=== PATIENT | female | born 1995 | race American Indian/Alaskan Native ===

== ENCOUNTER 2018-04-30 21:31 | Inpatient (IN) | payer MEDICAID ==
[2018-04-30 21:40] VITALS: BMI 38.9
--- NOTE | 2018-04-30 21:53 | ED PDOC ---
Arrival/HPI - General Historian: Patient - General Chief Complaint: Psychiatric Evaluation Time Seen by Provider: 04/30/18 21:39 - History of Present Illness Narrative History of Present Illness (Text): 04/30/18 21:51 22-year-old female presents today brought in by EMS after refusing to stay in her [facility]. Patient denies any trauma or injury. She denies suicidal or homicidal ideations. Patient states she left her [facility] today because she does not want to stay in the [facility] anymore. Patient states she would prefer to stay in a [place] [facility]. Patient states today she was picked up walking [address] and brought to [facility] for which she had a psychiatric evaluation and was discharged back to the [facility]. Patient states as soon as she got back to the [facility] she went upstairs packed her bags and then went to sit on the steps. Patient states the [facility] called the police and she is back in the emergency room because she refuses to stay in the [facility]. (Margaret Silva) Past Medical History - Provider Review Nursing Documentation Reviewed: Yes - Travel History Have you recently traveled outside [place] w/in the past 3 mons?: No - Tetanus Immunization Tetanus Immunization: Unknown - Cardiac Hx Hypertension: Yes - Pulmonary Hx Asthma: Yes - Endocrine/Metabolic Hx Diabetes Mellitus Type 2: Yes Hx Hypothyroidism: Yes - Psychiatric Hx Psychophysiologic Disorder: Yes Hx Substance Use: No - Surgical History Hx Orthopedic Surgery: Yes Hx Tonsillectomy: Yes - Anesthesia Hx Anesthesia: Yes Family/Social History - Physician Review Nursing Documentation Reviewed: Yes Family/Social History: Unknown Family HX Smoking Status: Unknown If Ever Smoked Hx Alcohol Use: No Hx Substance Use: No Allergies/Home Meds Allergies/Adverse Reactions: Allergies haloperidol [From Haldol] Allergy (Verified 04/12/18 21:37) ANAPHYLAXIS risperidone [From Risperdal] Allergy (Verified 04/12/18 21:37) ANAPHYLAXIS shellfish derived Allergy (Verified 04/12/18 21:38) ANAPHYLAXIS seafood Allergy (Uncoded 04/30/18 21:39) ANAPHYLAXIS Home Medications: Home Meds Medication Instructions Recorded Confirmed Acetaminophen [Tylenol 325mg tab] 650 mg PO PRN PRN 05/02/18 05/02/18 Atomoxetine HCl 25 mg PO DAILY 05/02/18 05/02/18 Azelastine HCl [Azelastine 1 drop OP BID 05/02/18 05/02/18 Hydrochloride 6 ml] Bisacodyl [Ducolax] 10 mg PO HS 05/02/18 05/02/18 Cabergoline 0.75 mg PO TUE 05/02/18 05/03/18 Daily Vitamin Mvi 1 tab PO DAILY 05/02/18 05/02/18 Docusate [Colace] 100 mg PO TID 05/02/18 05/02/18 Escitalopram [Lexapro] 20 mg PO DAILY 05/02/18 05/02/18 Famotidine [Pepcid] 40 mg PO DAILY 05/02/18 05/02/18 Fluticasone Propionate [Flonase] 50 mcg DAILY 05/02/18 05/02/18 Gabapentin [Neurontin] 300 mg PO TID 05/02/18 05/02/18 Hydroxyzine Pamoate 50 mg PO QID 05/02/18 05/02/18 [place] Carbonate 300 mg PO TID 05/02/18 05/02/18 Norethindrone AC-Eth Estradiol 1 tab PO DAILY 05/02/18 05/02/18 [Ethinyl Estradiol-Norethindrone Acetate 20 Mc] Pantoprazole [Protonix] 40 mg PO HS 05/02/18 05/02/18 Prazosin HCL [Minipress] 2 mg PO HS 05/02/18 05/02/18 Sennosides [Senna] 17.2 mg PO HS 05/02/18 05/02/18 Thiamine [Vitamin B1] 100 mg PO DAILY 05/02/18 05/02/18 busPIRone [Buspar] 5 mg PO TID 05/02/18 05/02/18 metFORMIN [glucOPHAGE] 500 mg PO BID 05/02/18 05/02/18 traZODone [trazodone Hydrochloride] 100 mg PO PRN 05/02/18 05/02/18 Cabergoline [Cabergoline] 0.75 mg PO FRI 05/03/18 05/03/18 Review of Systems - Review of Systems Constitutional: absent: Fatigue, Fevers Respiratory: absent: SOB, Cough Cardiovascular: absent: Chest Pain, Palpitations Gastrointestinal: absent: Abdominal Pain, Nausea, Vomiting Genitourinary Female: absent: Dysuria Musculoskeletal: absent: Arthralgias, Back Pain, Neck Pain Skin: absent: Rash, Pruritis Neurological: absent: Headache, Dizziness Psychiatric: absent: Anxiety, Depression, Suicidal Ideation Physical Exam Vital Signs Reviewed: Yes Temperature: Afebrile Blood Pressure: Normal Pulse: Regular Respiratory Rate: Normal Appearance: Positive for: Well-Appearing, Non-Toxic, Comfortable Pain Distress: None Mental Status: Positive for: Alert and Oriented X 3 - Systems Exam Head: Present: Atraumatic Mouth: Present: Moist Mucous Membranes Respiratory/Chest: Present: Clear to Auscultation Cardiovascular: Present: Regular Rate and Rhythm Abdomen: No: Tenderness, Rebound, Guarding Upper Extremity: Present: Normal ROM Lower Extremity: Present: Normal ROM Neurological: Present: GCS=15, Speech Normal Skin: Present: Warm, Dry, Normal Color. No: Rashes Psychiatric: Present: Alert, Oriented x 3 Vital Signs Temp Pulse Resp BP Pulse Ox 05/02/18 11:40 97.3 F L 73 18 108/69 99 05/02/18 10:15 88 18 110/69 99 05/02/18 08:01 97.1 F L 64 16 93/61 L 98 05/02/18 05:00 74 16 110/68 97 05/02/18 01:00 77 16 118/70 97 05/01/18 21:00 84 16 115/68 98 05/01/18 19:15 98.4 F 66 17 102/67 97 05/01/18 16:11 80 16 136/82 99 05/01/18 14:11 83 16 122/86 99 05/01/18 12:10 88 16 99 05/01/18 10:09 88 16 120/82 99 05/01/18 08:08 88 16 120/78 99 05/01/18 05:14 98.1 F 90 18 117/80 98 05/01/18 00:30 98.5 F 71 18 112/78 98 04/30/18 22:43 97.4 F L 74 18 115/82 98 Medical Decision Making ED Course and Treatment: 05/01/18 01:49: Case endorsed to me by MEHRAN Silva. Pending face-to- face with Dr. Gallo and disposition. (Claudy Simmons) 04/30/18 21:53 Patient is nontoxic well-appearing in no distress vital signs are stable. CBC Wbc: 13.9 CMP WNL Tylenol WNL Salicylate WNL Alcohol level WNL Urine drug screen wnl UA; wnl ekg normal sinus rhythm at 71 bpm normal axis normal intervals no ST elevations pt is medically cleared for PES evaluation Patient was seen and evaluated by PES screener: Michel pt is to be held in the ER for a Face to face with the psychiatrist Dr. Melvin in the morning. case signed out to dr. simmons pending evaluation by psychiatrist in the morning and disposition. (Margaret Silva) - Lab Interpretations Microbiology Results: Microbiology Results 04/30/18 22:57 Urine,Clean Catch Urine Culture - Final Gram Negative Julian Lab Results: 04/30/18 22:57 04/30/18 22:57 Lab Results 05/02/18 08:02: POC Glucose (mg/dL) 95 05/01/18 09:13: POC Glucose (mg/dL) 106 05/01/18 00:25: POC Glucose (mg/dL) 82 04/30/18 22:57: Alcohol, Quantitative < 10 04/30/18 22:57: Salicylates < 1 L, Acetaminophen < 10.0 L 04/30/18 22:57: Sodium 142, Potassium 3.9, Chloride 106, Carbon Dioxide 24, Anion Gap 16, BUN 7, Creatinine 0.6 L, Est GFR ( Amer) > 60, Est GFR (Non -Af Amer) > 60, Random Glucose 90, Calcium 9.9, Total Bilirubin 0.2, AST 35, ALT 39, Alkaline Phosphatase 60, Total Protein 7.6, Albumin 4.4, Globulin 3.2, Albumin/Globulin Ratio 1.4 04/30/18 22:57: WBC 13.9 H, RBC 4.62, Hgb 12.0, Hct 36.6, MCV 79.2 L, MCH 26.0, MCHC 32.8, RDW 13.8, Plt Count 462 H, MPV 9.4, Gran % 69.5 H, Lymph % (Auto) 23.7, [place] % (Auto) 5.4, Eos % (Auto) 1.3 L, Baso % (Auto) 0.1, Gran # 9.68 H, Lymph # (Auto) 3.3, [place] # (Auto) 0.8 H, Eos # (Auto) 0.2, Baso # (Auto) 0.02 04/30/18 22:44: Urine Opiates Screen Negative, Urine Methadone Screen Negative, Ur Barbiturates Screen Negative, Ur Phencyclidine Scrn Negative, Ur Amphetamines Screen Negative, U Benzodiazepines Scrn Negative, U Oth Cocaine Metabols Negative, U Cannabinoids Screen Negative 04/30/18 22:44: Urine Color Yellow, Urine Appearance Clear, Urine pH 6.0, Ur Specific [place] 1.020, Urine Protein Negative, Urine Glucose (UA) Negative, Urine Ketones Negative, Urine Blood Negative, Urine Nitrate Negative, Urine Bilirubin Negative, Urine Urobilinogen 0.2, Ur Leukocyte Esterase Trace H, Urine RBC Negative, Urine WBC 0 - 2, Ur Epithelial Cells 0 - 2, Urine Bacteria None - RAD Interpretation Radiology Orders: 05/01/18 14:10 CHEST ONE VIEW [RAD] Stat - Medication Orders Current Medication Orders: Albuterol Sulfate (Albuterol 0.083% Inhal Irene (2.5 Mg/3 Ml) Ud) 2.5 mg INH Q6 PRN PRN Reason: Wheezing Buspirone HCl (Buspar) 5 mg PO TID [facility] PRN Reason: Protocol Last Admin: 05/03/18 17:19 Dose: 5 mg Behavioural Document 05/03/18 17:19 RFE (Rec: 05/03/18 17:19 RFE [id number]) Maintenance Maintenance Dose Yes Nonmedicinal Nonmedicinal Interventions Redirect Therapeutic Communication Behavior Behavior for Medication: Anxiety Re-Assess: Reassess Psych Meds Document 05/03/18 18:19 ABO (Rec: 05/03/18 18:59 ABO [id number]) Reassess Psych Med Effective Calcium Carbonate (Oscal) 500 mg PO BID PRN PRN Reason: Indigestion / Heartburn Chlorpromazine (Thorazine) 50 mg IM Q6H PRN; Protocol PRN Reason: agitation and aggression Last Admin: 05/01/18 16:47 Dose: 50 mg IM Administration Charges Document 05/01/18 16:47 MS (Rec: 05/01/18 16:47 MS [id number]) Injection Site MAR Injection Site Left Deltoid Charges for Administration # of IM Administrations 1 Chlorpromazine (Thorazine) 50 mg PO BID [facility] PRN Reason: Protocol Last Admin: 05/03/18 17:19 Dose: 50 mg Behavioural Document 05/03/18 17:19 RFE (Rec: 05/03/18 17:19 RFE [id number]) Maintenance Maintenance Dose Yes Re-Assess: Reassess Psych Meds Document 05/03/18 18:19 ABO (Rec: 05/03/18 19:16 ABO [id number]) Reassess Psych Med Effective Chlorpromazine (Thorazine) 50 mg PO HS [facility] PRN Reason: Protocol Diphenhydramine HCl (Benadryl) 50 mg IM Q6H PRN PRN Reason: agitation/aggression Fluoxetine HCl (Prozac) 20 mg PO DAILY [facility] Last Admin: 05/03/18 13:09 Dose: 20 mg Fluticasone Propionate (Flonase) 1 actuation NS DAILY [facility] Last Admin: 05/03/18 08:54 Dose: 1 spray Gabapentin (Neurontin) 300 mg PO TID [facility] PRN Reason: Protocol Last Admin: 05/03/18 17:19 Dose: 300 mg Behavioural Document 05/03/18 17:19 RFE (Rec: 05/03/18 17:19 RFE [id number]) Maintenance Maintenance Dose Yes Re-Assess: Reassess Psych Meds Document 05/03/18 18:19 ABO (Rec: 05/03/18 19:00 ABO [id number]) Reassess Psych Med Effective Hydroxyzine Pamoate (Vistaril) 50 mg PO QID PRN; Protocol PRN Reason: Anxiety Last Admin: 05/02/18 17:08 Dose: 50 mg Behavioural Document 05/02/18 17:08 ABO (Rec: 05/02/18 17:08 ABO [id number]) Maintenance Maintenance Dose No Nonmedicinal Nonmedicinal Interventions See nurse's notes Behavior Behavior for Medication: Anxiety Re-Assess: Reassess Psych Meds Document 05/02/18 18:08 CV (Rec: 05/02/18 18:56 CV [id number]) Reassess Psych Med Effective [place] Carbonate ([place] Carbonate 300mg) 300 mg PO TID [facility] Last Admin: 05/03/18 17:19 Dose: 300 mg Behavioural Document 05/03/18 17:19 RFE (Rec: 05/03/18 17:19 RFE [id number]) Maintenance Maintenance Dose Yes Re-Assess: Reassess Psych Meds Document 05/03/18 18:19 ABO (Rec: 05/03/18 19:04 ABO [id number]) Reassess Psych Med Effective Loratadine (Claritin) 10 mg PO DAILY PRN PRN Reason: Allergy symptoms Metformin HCl (Glucophage) 500 mg PO BID [facility] Last Admin: 05/03/18 17:19 Dose: 500 mg Multivitamins (Thera Tab) 1 tab PO DAILY [facility] Last Admin: 05/03/18 08:53 Dose: 1 tab Naltrexone HCl (Revia) 50 mg PO DAILY [facility] Last Admin: 05/03/18 13:09 Dose: 50 mg Nicotine (Nicoderm Cq) 1 patch TD DAILY [facility] Nitrofurantoin Macrocrystals (Macrobid) 100 mg PO Q12 [facility] PRN Reason: Protocol Last Admin: 05/03/18 17:19 Dose: 100 mg Non-Formulary Medication (Cabergoline [Cabergoline]) 0.75 mg PO TUE [place] Cabergoline [ Cabergoline] 0.75 Mg ) 0.75 mg PO FRI [facility] Pantoprazole Sodium (Protonix Ec Tab) 40 mg PO HS [facility] Last Admin: 05/02/18 22:01 Dose: Not Given Non-Admin Reason: Patient Asleep Thiamine HCl (Vitamin B1 Tab) 100 mg PO DAILY [facility] Last Admin: 05/03/18 08:53 Dose: 100 mg Trazodone HCl (Desyrel) 50 mg PO HS PRN PRN Reason: depression/insomnia Discontinued Medications Bisacodyl (Dulcolax) 10 mg PO HS [facility] Last Admin: 05/02/18 22:01 Dose: Not Given Non-Admin Reason: Patient Asleep Buspirone HCl (Buspar) 5 mg PO DAILY [facility] PRN Reason: Protocol Chlorpromazine (Thorazine) 50 mg PO QID PRN; Protocol PRN Reason: agitation/psychosis Last Admin: 05/02/18 18:20 Dose: 50 mg Behavioural Document 05/02/18 18:20 ABO (Rec: 05/02/18 18:21 ABO [id number]) Maintenance Maintenance Dose No Nonmedicinal Nonmedicinal Interventions See nurse's notes Behavior Behavior for Medication: Anxiety Re-Assess: Reassess Psych Meds Document 05/02/18 19:20 CV (Rec: 05/02/18 19:37 CV [id number]) Reassess Psych Med Effective Escitalopram Oxalate (Lexapro) 20 mg PO DAILY [facility] Last Admin: 05/03/18 08:53 Dose: 20 mg Famotidine (Pepcid) 20 mg PO STAT STA Stop: 05/02/18 08:53 Last Admin: 05/02/18 10:01 Dose: 20 mg Ondansetron HCl (Zofran Tab) 4 mg PO STAT STA Stop: 05/03/18 19:35 Last Admin: 05/03/18 19:45 Dose: 4 mg Pantoprazole Sodium (Protonix Ec Tab) 40 mg PO DAILY [facility] Sennosides (Senokot Tab) 17.2 mg PO HS [facility] Last Admin: 05/02/18 22:01 Dose: Not Given Non-Admin Reason: Patient Asleep Trazodone HCl (Desyrel) 50 mg PO HS [facility] Disposition/Present on Arrival - Present on Arrival Any Indicators Present on Arrival: No History of DVT/PE: No History of Uncontrolled Diabetes: No Urinary Catheter: No History of Decub. Ulcer: No History Surgical Site Infection Following: None - Disposition Have Diagnosis and Disposition been Completed?: Yes Disposition Time: 11:20 - Disposition Diagnosis: Schizophrenia Disposition: HOSPITALIZED Patient Problems: Current Active Problems Problem Status Onset Borderline personality disorder Acute PTSD (post-traumatic stress disorder) Acute Schizophrenia Acute Condition: STABLE
[2018-04-30 22:50] LABS: URINE APPEARANCE CLEAR (CLEAR); URINE BILIRUBIN NEGATIVE (NEGATIVE); URINE BLOOD NEGATIVE (NEGATIVE); URINE COLOR YELLOW (YELLOW); URINE GLUCOSE (UA) NEGATIVE (NEGATIVE); URINE LEUKOCYTE ESTERASE TRACE Leu/uL (NEGATIVE); URINE PROTEIN NEGATIVE mg/dL (<30 mg/dL); URINE UROBILINOGEN 0.2 E.U./dL (<1 E.U./dL)
[2018-04-30 22:53] LABS: URINE EPITHELIAL CELLS 0 - 2 /hpf (0-5); URINE RBC NEGATIVE /hpf (0-2); URINE WBC 0 - 2 /hpf (0-6)
[2018-04-30 23:02] LABS: BASO # 0.02 K/mm3 (0.0-2.0); BASO % 0.1 % (0.0-3.0); EOS # 0.2 (0.0-0.7); EOS % 1.3 % (1.5-5.0); GRAN # 9.68 (1.4-6.5); GRAN % 69.5 % (50.0-68.0); LYMPH # 3.3 (1.2-3.4); LYMPH % 23.7 % (22.0-35.0); MEAN CELL VOLUME 79.2 fl (80.0-105.0); MEAN CORPUSCULAR HGB CONC 32.8 g/dl (31.0-37.0); MEAN PLATELET VOLUME 9.4 fl (7.0-11.0); MONO # 0.8 (0.1-0.6); MONO % 5.4 % (1.0-6.0); RBC 4.62 10^6/uL (3.5-6.1); RED CELL DISTRIBUTION WIDTH 13.8 % (11.5-14.5); WHITE BLOOD COUNT 13.9 10^3/ul (4.5-11.0)
[2018-04-30 23:12] LABS: ALB/GLOB RATIO 1.4 (1.1-1.8)
[2018-04-30 23:13] LABS: ACETAMINOPHEN < 10.0 ug/ml (10.0-20.0); SALICYLATE < 1 mg/dL (2.0-20.0)
[2018-04-30 23:14] LABS: ALBUMIN 4.4 g/dL (3.0-4.8); ALT/SGPT 39 U/L (7-56); AST/SGOT 35 U/L (14-36); BLOOD UREA NITROGEN 7 mg/dL (7-21); CALCIUM 9.9 mg/dL (8.4-10.5); GFR AFRICAN-AMERICAN > 60; GFR NON-AFRICAN AMERICAN > 60
[2018-04-30 23:14] LABS: BARBITURATES, UR NEGATIVE (NEGATIVE); BENZODIAZEPINES, UR NEGATIVE (NEGATIVE); OPIATES, UR NEGATIVE (NEGATIVE); PHENCYCLIDINE, UR NEGATIVE (NEGATIVE)
--- NOTE | 2018-05-01 07:45 | ED PDOC ---
Physical Exam Vital Signs Reviewed: Yes Vital Signs Temp Pulse Resp BP Pulse Ox 05/01/18 05:14 98.1 F 90 18 117/80 98 05/01/18 00:30 98.5 F 71 18 112/78 98 04/30/18 22:43 97.4 F L 74 18 115/82 98 Temperature: Afebrile Blood Pressure: Normal Pulse: Regular Respiratory Rate: Normal Appearance: Positive for: Well-Appearing, Non-Toxic, Comfortable Pain Distress: None Mental Status: Positive for: Alert and Oriented X 3 - Systems Exam Head: Present: Atraumatic, Normocephalic Pupils: Present: PERRL Extroacular Muscles: Present: EOMI Conjunctiva: Present: Normal Mouth: Present: Moist Mucous Membranes Neck: Present: Normal Range of Motion Respiratory/Chest: Present: Clear to Auscultation, Good Air Exchange. No: Respiratory Distress, Accessory Muscle Use Cardiovascular: Present: Regular Rate and Rhythm, Normal S1, S2. No: Murmurs Abdomen: No: Tenderness, Distention, Peritoneal Signs Back: Present: Normal Inspection Upper Extremity: Present: Normal Inspection. No: Cyanosis, Edema Lower Extremity: Present: Normal Inspection. No: Edema Neurological: Present: GCS=15, CN II-XII Intact, Speech Normal Skin: Present: Warm, Dry, Normal Color. No: Rashes Psychiatric: Present: Alert, Oriented x 3, Normal Insight, Normal Concentration Medical Decision Making ED Course and Treatment: 05/01/18 07:42 Case signed out to me by Dr. Nelson, pending psychiatric evaluation and disposition. 05/01/18 11:[address] melvin, patient can be discharged but senior living must pick patient up. Patient does not appear to be a acute threat to herself or others and does not require hospitalization at this time. 05/01/18 14:38 patient is medically stable for psych eval, admit, transfer if needed 05/01/18 15:10 Chest X-ray: Creator : Cassidy Suarez MD IMPRESSION: No active pulmonary disease. 05/01/18 18:30 up to this point several chain of events have occurred. Patient was initially discharged to go home via Dr. Melvin. Patient then went to say she will kill herself if she has to go back to her senior living. PED was contacted to have patient screened for psych placement but was then refused for admission to [facility]. At this point, am awaiting potential placement at [facility]. - Lab Interpretations Lab Results: 04/30/18 22:57 04/30/18 22:57 Lab Results 04/30/18 22:57: Alcohol, Quantitative < 10 04/30/18 22:57: Salicylates < 1 L, Acetaminophen < 10.0 L 04/30/18 22:57: Sodium 142, Potassium 3.9, Chloride 106, Carbon Dioxide 24, Anion Gap 16, BUN 7, Creatinine 0.6 L, Est GFR ( Amer) > 60, Est GFR (Non -Af Amer) > 60, Random Glucose 90, Calcium 9.9, Total Bilirubin 0.2, AST 35, ALT 39, Alkaline Phosphatase 60, Total Protein 7.6, Albumin 4.4, Globulin 3.2, Albumin/Globulin Ratio 1.4 04/30/18 22:57: WBC 13.9 H, RBC 4.62, Hgb 12.0, Hct 36.6, MCV 79.2 L, MCH 26.0, MCHC 32.8, RDW 13.8, Plt Count 462 H, MPV 9.4, Gran % 69.5 H, Lymph % (Auto) 23.7, [place] % (Auto) 5.4, Eos % (Auto) 1.3 L, Baso % (Auto) 0.1, Gran # 9.68 H, Lymph # (Auto) 3.3, [place] # (Auto) 0.8 H, Eos # (Auto) 0.2, Baso # (Auto) 0.02 04/30/18 22:44: Urine Opiates Screen Negative, Urine Methadone Screen Negative, Ur Barbiturates Screen Negative, Ur Phencyclidine Scrn Negative, Ur Amphetamines Screen Negative, U Benzodiazepines Scrn Negative, U Oth Cocaine Metabols Negative, U Cannabinoids Screen Negative 04/30/18 22:44: Urine Color Yellow, Urine Appearance Clear, Urine pH 6.0, Ur Specific [place] 1.020, Urine Protein Negative, Urine Glucose (UA) Negative, Urine Ketones Negative, Urine Blood Negative, Urine Nitrate Negative, Urine Bilirubin Negative, Urine Urobilinogen 0.2, Ur Leukocyte Esterase Trace H, Urine RBC Negative, Urine WBC 0 - 2, Ur Epithelial Cells 0 - 2, Urine Bacteria None - RAD Interpretation Radiology Orders: 05/01/18 14:10 CHEST ONE VIEW [RAD] Stat - Medication Orders Current Medication Orders: Chlorpromazine (Thorazine) 50 mg IM Q6H PRN; Protocol PRN Reason: agitation and aggression Diphenhydramine HCl (Benadryl) 50 mg IM Q6H PRN PRN Reason: agitation/aggression - Scribe Statement The provider has reviewed the documentation as recorded by the Scribjeramy Miranda All medical record entries made by the Scribe were at my direction and personally dictated by me. I have reviewed the chart and agree that the record accurately reflects my personal performance of the history, physical exam, medical decision making, and the department course for this patient. I have also personally directed, reviewed, and agree with the discharge instructions and disposition. Disposition/Present on Arrival - Present on Arrival Any Indicators Present on Arrival: No History of DVT/PE: No History of Uncontrolled Diabetes: No Urinary Catheter: No History of Decub. Ulcer: No History Surgical Site Infection Following: None - Disposition Have Diagnosis and Disposition been Completed?: Yes Diagnosis: Mood disorder, Borderline personality disorder Disposition: HOME/ ROUTINE Disposition Time: 12:02 Patient Plan: Discharge Patient Problems: Current Active Problems Problem Status Onset Borderline personality disorder Acute Mood disorder Acute Condition: STABLE Discharge Instructions (ExitCare): Tips for How to Help Your Mood Print Language: GUYANESE Referrals: Ibeth Singh MD [Primary Care Provider] - Follow up with primary Forms: [employer] (Austrian)
--- NOTE | 2018-05-01 12:15 | CARD ---
APPROVED REPORT Date of service: 04/30/2018 EKG Measurement Heart [id number] <Conclusion> Normal sinus rhythm Normal ECG
[2018-05-01] MEDS ORDERED: DiphenhydrAMINE 50 mg/ml Inj IM PRN (13:43)
--- NOTE | 2018-05-01 14:31 | CP.PCM.PCO ---
Addendum Addendum: 05/01/18 14:30 as per PES reassessment pt presented agitated, responding to internal stimuli, command type hallucinations will call for screening discussed with today [facility]
--- NOTE | 2018-05-01 14:44 | RAD ---
Date of service: 05/01/2018 PROCEDURE: CHEST RADIOGRAPH, 1 VIEW HISTORY: medical screening COMPARISON: None available. FINDINGS: LUNGS: The lungs are well inflated and clear. PLEURA: No pneumothorax or pleural fluid seen. CARDIOVASCULAR: Normal. OSSEOUS STRUCTURES: No significant abnormalities. VISUALIZED UPPER ABDOMEN: Normal. OTHER FINDINGS: None. IMPRESSION: No active pulmonary disease.
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
--- NOTE | 2018-05-01 23:05 | ED PDOC ---
Physical Exam Vital Signs Temp Pulse Resp BP Pulse Ox 05/01/18 19:15 98.4 F 66 17 102/67 97 05/01/18 16:11 80 16 136/82 99 05/01/18 14:11 83 16 122/86 99 05/01/18 12:10 88 16 99 05/01/18 10:09 88 16 120/82 99 05/01/18 08:08 88 16 120/78 99 05/01/18 05:14 98.1 F 90 18 117/80 98 05/01/18 00:30 98.5 F 71 18 112/78 98 04/30/18 22:43 97.4 F L 74 18 115/82 98 Medical Decision Making ED Course and Treatment: 05/01/18 19:00 Case endorsed to me by Dr. Morrison, pending possible psych transfer to [facility]. - Lab Interpretations Lab Results: 04/30/18 22:57 04/30/18 22:57 Lab Results 04/30/18 22:57: Alcohol, Quantitative < 10 04/30/18 22:57: Salicylates < 1 L, Acetaminophen < 10.0 L 04/30/18 22:57: Sodium 142, Potassium 3.9, Chloride 106, Carbon Dioxide 24, Anion Gap 16, BUN 7, Creatinine 0.6 L, Est GFR ( Amer) > 60, Est GFR (Non -Af Amer) > 60, Random Glucose 90, Calcium 9.9, Total Bilirubin 0.2, AST 35, ALT 39, Alkaline Phosphatase 60, Total Protein 7.6, Albumin 4.4, Globulin 3.2, Albumin/Globulin Ratio 1.4 04/30/18 22:57: WBC 13.9 H, RBC 4.62, Hgb 12.0, Hct 36.6, MCV 79.2 L, MCH 26.0, MCHC 32.8, RDW 13.8, Plt Count 462 H, MPV 9.4, Gran % 69.5 H, Lymph % (Auto) 23.7, Brule % (Auto) 5.4, Eos % (Auto) 1.3 L, Baso % (Auto) 0.1, Gran # 9.68 H, Lymph # (Auto) 3.3, Brule # (Auto) 0.8 H, Eos # (Auto) 0.2, Baso # (Auto) 0.02 07/17/18 22:44: Urine Opiates Screen Negative, Urine Methadone Screen Negative, Ur Barbiturates Screen Negative, Ur Phencyclidine Scrn Negative, Ur Amphetamines Screen Negative, U Benzodiazepines Scrn Negative, U Oth Cocaine Metabols Negative, U Cannabinoids Screen Negative 04/30/18 22:44: Urine Color Yellow, Urine Appearance Clear, Urine pH 6.0, Ur Specific Wallace 1.020, Urine Protein Negative, Urine Glucose (UA) Negative, Urine Ketones Negative, Urine Blood Negative, Urine Nitrate Negative, Urine Bilirubin Negative, Urine Urobilinogen 0.2, Ur Leukocyte Esterase Trace H, Urine RBC Negative, Urine WBC 0 - 2, Ur Epithelial Cells 0 - 2, Urine Bacteria None - RAD Interpretation Radiology Orders: 05/01/18 14:10 CHEST ONE VIEW [RAD] Stat - Medication Orders Current Medication Orders: Chlorpromazine (Thorazine) 50 mg IM Q6H PRN; Protocol PRN Reason: agitation and aggression Last Admin: 05/01/18 16:47 Dose: 50 mg IM Administration Charges Document 05/01/18 16:47 MS (Rec: 05/01/18 16:47 MS [id number]) Injection Site MAR Injection Site Left Deltoid Charges for Administration # of IM Administrations 1 Diphenhydramine HCl (Benadryl) 50 mg IM Q6H PRN PRN Reason: agitation/aggression - Transfer of Care Patient signed out to Dr:: bebeto awaiting transfer Disposition/Present on Arrival - Present on Arrival Any Indicators Present on Arrival: No History of DVT/PE: No History of Uncontrolled Diabetes: No Urinary Catheter: No History of Decub. Ulcer: No History Surgical Site Infection Following: None - Disposition Have Diagnosis and Disposition been Completed?: Yes Diagnosis: Schizophrenia Disposition: HOSPITALIZED Disposition Time: 07:00 Condition: STABLE
[2018-05-02] MEDS ORDERED: Albuterol 0.083% Inhal Sol (2.5 mg/3 mL) UD INH PRN (09:13)
[2018-05-02] MEDS ORDERED: Pantoprazole 40 mg EC Tab PO SCH (10:00)
[2018-05-02] MEDS: Multivitamin Therapeutic Tab PO SCH (10:02)
--- NOTE | 2018-05-02 11:22 | CP.PCM.PCO ---
Physician Communication Note - Physician Communication Note Physician Communication Note: pt was [place] [facility] program, signed voluntary admission
[2018-05-02] MEDS: Fluticasone Nasal 50 mcg/Spray NS SCH ×2 (11:24→11:27)
--- NOTE | 2018-05-02 11:26 | ED PDOC ---
Physical Exam Vital Signs Temp Pulse Resp BP Pulse Ox 05/02/18 08:01 97.1 F L 64 16 93/61 L 98 05/02/18 05:00 74 16 110/68 97 05/02/18 01:00 77 16 118/70 97 05/01/18 21:00 84 16 115/68 98 05/01/18 19:15 98.4 F 66 17 102/67 97 05/01/18 16:11 80 16 136/82 99 05/01/18 14:11 83 16 122/86 99 05/01/18 12:10 88 16 99 05/01/18 10:09 88 16 120/82 99 05/01/18 08:08 88 16 120/78 99 05/01/18 05:14 98.1 F 90 18 117/80 98 05/01/18 00:30 98.5 F 71 18 112/78 98 04/30/18 22:43 97.4 F L 74 18 115/82 98 Finger Stick Blood Glucose: 95 Medical Decision Making ED Course and Treatment: Signed out at change of shift pending [employer] screening. Screening performed around 11am, not accepted as "too high functioning." Patient then voluntarily signed in. - Lab Interpretations Microbiology Results: Microbiology Results 04/30/18 22:57 Urine,Clean Catch Urine Culture - Final Gram Negative Julian Lab Results: 04/30/18 22:57 04/30/18 22:57 Lab Results 05/01/18 09:13: POC Glucose (mg/dL) 106 05/01/18 00:25: POC Glucose (mg/dL) 82 04/30/18 22:57: Alcohol, Quantitative < 10 04/30/18 22:57: Salicylates < 1 L, Acetaminophen < 10.0 L 04/30/18 22:57: Sodium 142, Potassium 3.9, Chloride 106, Carbon Dioxide 24, Anion Gap 16, BUN 7, Creatinine 0.6 L, Est GFR ( Amer) > 60, Est GFR (Non -Af Amer) > 60, Random Glucose 90, Calcium 9.9, Total Bilirubin 0.2, AST 35, ALT 39, Alkaline Phosphatase 60, Total Protein 7.6, Albumin 4.4, Globulin 3.2, Albumin/Globulin Ratio 1.4 04/30/18 22:57: WBC 13.9 H, RBC 4.62, Hgb 12.0, Hct 36.6, MCV 79.2 L, MCH 26.0, MCHC 32.8, RDW 13.8, Plt Count 462 H, MPV 9.4, Gran % 69.5 H, Lymph % (Auto) 23.7, [place] % (Auto) 5.4, Eos % (Auto) 1.3 L, Baso % (Auto) 0.1, Gran # 9.68 H, Lymph # (Auto) 3.3, [place] # (Auto) 0.8 H, Eos # (Auto) 0.2, Baso # (Auto) 0.02 04/30/18 22:44: Urine Opiates Screen Negative, Urine Methadone Screen Negative, Ur Barbiturates Screen Negative, Ur Phencyclidine Scrn Negative, Ur Amphetamines Screen Negative, U Benzodiazepines Scrn Negative, U Oth Cocaine Metabols Negative, U Cannabinoids Screen Negative 04/30/18 22:44: Urine Color Yellow, Urine Appearance Clear, Urine pH 6.0, Ur Specific Mcbain 1.020, Urine Protein Negative, Urine Glucose (UA) Negative, Urine Ketones Negative, Urine Blood Negative, Urine Nitrate Negative, Urine Bilirubin Negative, Urine Urobilinogen 0.2, Ur Leukocyte Esterase Trace H, Urine RBC Negative, Urine WBC 0 - 2, Ur Epithelial Cells 0 - 2, Urine Bacteria None - RAD Interpretation Radiology Orders: 05/01/18 14:10 CHEST ONE VIEW [RAD] Stat - Medication Orders Current Medication Orders: Albuterol Sulfate (Albuterol 0.083% Inhal Irene (2.5 Mg/3 Ml) Ud) 2.5 mg INH Q6 PRN PRN Reason: Wheezing Bisacodyl (Dulcolax) 10 mg PO HS SIDNEY Buspirone HCl (Buspar) 5 mg PO TID SIDNEY PRN Reason: Protocol Last Admin: 05/02/18 10:02 Dose: 5 mg Calcium Carbonate (Oscal) 500 mg PO BID PRN PRN Reason: Indigestion / Heartburn Chlorpromazine (Thorazine) 50 mg IM Q6H PRN; Protocol PRN Reason: agitation and aggression Last Admin: 05/01/18 16:47 Dose: 50 mg IM Administration Charges Document 05/01/18 16:47 MS (Rec: 05/01/18 16:47 MS [id number]) Injection Site MAR Injection Site Left Deltoid Charges for Administration # of IM Administrations 1 Diphenhydramine HCl (Benadryl) 50 mg IM Q6H PRN PRN Reason: agitation/aggression Escitalopram Oxalate (Lexapro) 20 mg PO DAILY [facility] Last Admin: 05/02/18 10:12 Dose: Not Given Non-Admin Reason: Patient Refused Fluticasone Propionate (Flonase) 1 actuation NS DAILY [facility] Gabapentin (Neurontin) 300 mg PO TID SIDNEY PRN Reason: Protocol Last Admin: 05/02/18 10:01 Dose: 300 mg Hydroxyzine Pamoate (Vistaril) 50 mg PO QID PRN; Protocol PRN Reason: Anxiety Altura Carbonate (Altura Carbonate 300mg) 300 mg PO TID [facility] Last Admin: 05/02/18 09:59 Dose: 300 mg Loratadine (Claritin) 10 mg PO DAILY PRN PRN Reason: Allergy symptoms Metformin HCl (Glucophage) 500 mg PO BID [facility] Last Admin: 05/02/18 10:00 Dose: 500 mg Multivitamins (Thera Tab) 1 tab PO DAILY [facility] Last Admin: 05/02/18 10:02 Dose: 1 tab Nitrofurantoin Macrocrystals (Macrobid) 100 mg PO Q12 [facility] PRN Reason: Protocol Last Admin: 05/02/18 10:00 Dose: 100 mg Pantoprazole Sodium (Protonix Ec Tab) 40 mg PO HS [facility] Sennosides (Senokot Tab) 17.2 mg PO HS [facility] Thiamine HCl (Vitamin B1 Tab) 100 mg PO DAILY [facility] Last Admin: 05/02/18 10:01 Dose: 100 mg Trazodone HCl (Desyrel) 50 mg PO HS PRN PRN Reason: depression/insomnia Discontinued Medications Buspirone HCl (Buspar) 5 mg PO DAILY [facility] PRN Reason: Protocol Famotidine (Pepcid) 20 mg PO STAT STA Stop: 05/02/18 08:53 Last Admin: 05/02/18 10:01 Dose: 20 mg Pantoprazole Sodium (Protonix Ec Tab) 40 mg PO DAILY [facility] Trazodone HCl (Desyrel) 50 mg PO HS [facility] Disposition/Present on Arrival - Present on Arrival Any Indicators Present on Arrival: No History of DVT/PE: No History of Uncontrolled Diabetes: No Urinary Catheter: No History of Decub. Ulcer: No History Surgical Site Infection Following: None - Disposition Have Diagnosis and Disposition been Completed?: Yes Diagnosis: Schizophrenia Disposition: HOSPITALIZED Disposition Time: 11:25 Patient Plan: Admission Patient Problems: Current Active Problems Problem Status Onset Borderline personality disorder Acute Mood disorder Acute Condition: STABLE Print Language: TAJIK
[2018-05-02 11:41] VITALS: O2SAT 99
--- NOTE | 2018-05-02 13:14 | PN ---
DATE: 05/02/2018 SUBJECTIVE: Patient was followed up in the Emergency Room today. Patient was screened by [facility], was not accepted for screening. Overnight, patient did not have any behavioral disturbances, did not require any medication for agitation or aggression. Last IM was given to her yesterday at 04:47, Thorazine 50 mg IM. Patient was seen today at the morning time, presented to be calm, superficially cooperative. Patient still has prior thoughts of harming herself. Patient said that she feels depressed, hopeless, and helpless. Majority of the stress is related to the living situation. Patient states that she does not like her fci. Patient wants to be more independent. At the same time, this development writer is not sure how realistic the plan is. This development writer suggested [facility] DDD Program evaluation and they will come and talk to the patient in the Emergency Room after 09:00 p.m. We will follow up on evaluation. If patient will be not accepted to [facility], this development writer will offer admission and I hope that patient will sign herself into the hospital. Medication list was confirmed by fci and we will resume all of the medications with appropriate doses. Please see addendum entered by consultants intern. This development writer feels that the patient needs to have higher level of care and appropriate treatment at the DDD unit. Reviewed vital signs. Vital signs seem to be stable. Temperature 97.1, pulse 64, blood pressure 93/61, respirations 16, oxygen saturation 98. MEDICATIONS: Reviewed. Patient is on albuterol, Dulcolax, BusPar, Os-Otf, Thorazine will be as needed, Benadryl, Lexapro, Neurontin, Risperdal, lithium, Claritin, Glucophage, multivitamins, Protonix, Senokot and vitamin B1. Patient said that she was noncompliant with the medications for the past week. Patient reported that she was homeless since the age of 14 through 17 and during that time, as per report, patient had baby at the age of 15 and patient's baby was placed in the foster care, but this is questionable. LABORATORY DATA: Labs reviewed. There are no new labs. Microbiology reviewed, gram-negative rods. MENTAL STATUS EXAMINATION: Patient presented to be alert, oriented, intense eye contact. Mood described as "I am still feeling hopeless and helpless, and I want to kill myself." Thought process seems to be coherent, but very concrete. Thought content, patient reported auditory hallucination, needed to be medicated yesterday, feeling of hopelessness, suicidal ideation. Insight and judgment are limited, but seems to be improving to compare with yesterday. Impulses are better controlled. IMPRESSION: As per history, schizophrenia and learning disability. Patient also had been diagnosed with attention deficit hyperactivity disorder. Patient also has multiple medical problems. Please see medical notes for more detailed information. Patient was newly diagnosed with urinary tract infection. We will discuss with the emergency room physician about medications for her possible urinary tract infection. PLAN: Medications resumed with appropriate doses, please see addendum. Patient will be evaluated by [facility]. If patient is not accepted, most likely this development writer will admit the patient for voluntary evaluation. We will work with the DDD worker and come up with appropriate discharge plan for the patient. Patient is currently on one-to-one because patient is on high elopement risk and needs further evaluation and stabilization. Thank you very much for letting me participate in care of your patient. Ngozi Gallo MD MTDDemetrius
--- NOTE | 2018-05-02 16:58 | PCM.BM ---
<Christine Lara - Last Filed: 05/02/18 16:54> Treatment Plan Problems - Problems identified on initial assessmt command /auditory hallucination Date Initiated: 05/02/18 Time Initiated: 16:55 Assessment reference: NA Status: Active auditory hallucination Date Initiated: 05/02/18 Time Initiated: 16:56 Assessment reference: NA Status: Active high risk/violence Date Initiated: 05/02/18 Time Initiated: 16:57 Assessment reference: NA Status: Active alterd thought process Date Initiated: 05/02/18 Time Initiated: 16:58 Assessment reference: NA Status: Active medication non adherence Date Initiated: 05/02/18 Time Initiated: 16:59 Assessment reference: NA Status: Active Treatment assets and liabiliti Patient Assests: adapts well, ADL independent, negotiates basic needs Patient Liabilities: live alone, poor support system, dietary restrictions, substance abuse, medical problems, auditory impairment - Milieu Protocol Maintain good personal hygiene: every shift Encourage regular showers, every shift Remind patient to perform daily oral care, every shift Assist patient to perform ADL's Conduct patient checks and document Observation sheet: Q15 minutes Maintain personal safety: every shift Educate patient to report safety concerns to staff, every shift Monitor environment for contraband/sharps Medication safety: Monitor for expected outcome, potential side effects: every shift, Assess barriers to learning: every shift, Assess readiness for medication education: every shift Discharge/Continuing Care - Education Needs Education Needs: Patient Medication, Patient Diagnosis/Disease Process, Patient Coping Skills, Patient Placement options, Patient Community resources, Patient Personal Hygiene/Grooming - Discharge Discharge Criteria: Tolerates medication w/o severe side effects, Free of Suicidal thoughts, Free of Homicidal thoughts, Free of paranoid thoughts, Normal sleep pattern, Ability to care for self <Ngozi Gallo - Last Filed: 05/03/18 09:23> - Diagnosis (1) PTSD (post-traumatic stress disorder) Status: Acute Interventions: 05/03/18 09:24 Psychoeducation/psychotherapy Psychopharmacology/adjustment of medications as needed/ monitoring possible side effects Evaluate pt on daily basis Compliance with medications and follow up appointments Long acting medication if pt is noncompliant with pill form Suicide and homicide risk assessment and prevention, coping strategies, safety plan Relapse prevention Reduction of symptoms Improve functional status Possible assertive community treatment Cognitive behavioral therapy Family involvement Possible social skill training as outpatient (2) Borderline personality disorder Status: Acute Interventions: 05/03/18 09:24 Psychoeducation Psychopharmacology/adjustment of medications as needed/ monitoring possible side effects Evaluate pt on daily basis Compliance with medications and follow up appointments Suicide and homicide risk assessment and prevention, coping strategies, safety plan Relapse prevention Family involvement As outpatient: Transference-focused psychotherapy/dialectical behavioral therapy /schema therapy Mindfulness skills (3) Schizophrenia Status: Acute Interventions: 05/03/18 09:24 Psychoeducation/psychotherapy Psychopharmacology/adjustment of medications as needed/ monitoring possible side effects Evaluate pt on daily basis Compliance with medications and follow up appointments Long acting medication if pt is noncompliant with pill form Suicide and homicide risk assessment and prevention, coping strategies, safety plan Relapse prevention Reduction of symptoms Improve functional status Possible assertive community treatment Cognitive behavioral therapy Family involvement Possible social skill training as outpatient <Jocelyn Senior Y - Last Filed: 05/06/18 11:57> Family Contact Family involvement: Famliy/SO not involved - Outside Agency Division of Developmental Disabilitites Care involvment: Following patient during stay, Information-sharing Agency contact name: DALIA Bell case monitor
[2018-05-02] MEDS ORDERED: Bisacodyl 5mg EC Tab PO SCH (22:00)
[2018-05-02] MEDS: Pantoprazole 40 mg EC Tab PO SCH (22:01)
[2018-05-03 08:11] LABS: HDL CHOLESTEROL 38 mg/dL (29-60)
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
[2018-05-03 08:22] LABS: LDL CHOLESTEROL 101 mg/dL (0-129)
[2018-05-03] MEDS: Multivitamin Therapeutic Tab PO SCH (08:53)
[2018-05-03] MEDS: Fluticasone Nasal 50 mcg/Spray NS SCH (08:54)
[2018-05-03] MEDS ORDERED: Bisacodyl 5mg EC Tab PO PRN (08:59)
--- NOTE | 2018-05-03 15:30 | RAD ---
Date of service: 05/03/2018 PROCEDURE: Left Wrist Radiographs. HISTORY: Left wrist pain COMPARISON: None. FINDINGS: BONES: Normal. No fracture. JOINTS: Normal. No dislocation. SOFT TISSUES: Normal. OTHER FINDINGS: None. IMPRESSION: Normal left wrist radiographs.
--- NOTE | 2018-05-03 16:37 | CP.PCM.CON ---
<Aaron Moya - Last Filed: 05/03/18 16:37> History of Present Illness - History of Present Illness History of Present Illness: Reason for consult: diarrhea and left wrist pain Ms. Felder is a 22 year old female with PMH of type 2 diabetes, seasonal allergies, asthma, PTSD, borderline personality disorder,schizophrenia, and a recent ear infection (was on Azithromycin) presenting with diarrhea and left wrist pain. She states that she has been having watery diarrhea for 1 week and have notice bright red blood in the past few days. She also admits to having left wrist pain and parasthesia of the left first metacarpal from previously being in tight handcuffs. Patient denies headaches, shortness of breath, chest pain, and urinary symptoms. 12 point ROS negative except as indicated in HPI Past medical history: DM-2, asthma Surgical history: tonsillectomy, bunions removal Allergies: haloperidol, risperidone, seafood Social history: Smoker 8 pack years, denies ETOH, admits to drug use: daily marijuana use, oxycodone, percocet, cocaine Family history: mother has DM-2 Review of Systems - Review of Systems Review of Systems: 12 point ROS negative except as indicated in HPI Past Patient History - Tetanus Immunizations Tetanus Immunization: Unknown - Past Social History Smoking Status: Unknown If Ever Smoked - CARDIAC Hx Hypertension: Yes - PULMONARY Hx Asthma: Yes - NEUROLOGICAL HX Cerebrovascular Accident: No Hx Seizures: No - HEENT Hx HEENT Problems: Yes Other/Comment: retina from both eyes as per patient - RENAL Hx Chronic Kidney Disease: No - ENDOCRINE/METABOLIC Hx Diabetes Mellitus Type 2: Yes Hx Hypothyroidism: Yes - HEMATOLOGICAL/ONCOLOGICAL Hx Cancer: No Hx Human Immunodeficiency Virus (HIV): No - INTEGUMENTARY Hx Dermatological Problems: No - MUSCULOSKELETAL/RHEUMATOLOGICAL Hx Musculoskeletal Disorders: No - GASTROINTESTINAL Hx Gastrointestinal Disorders: No - GENITOURINARY/GYNECOLOGICAL Hx Sexually Transmitted Disorders: No - PSYCHIATRIC Hx Substance Use: No - SURGICAL HISTORY Hx Surgeries: Yes Hx Orthopedic Surgery: Yes Hx Tonsillectomy: Yes - ANESTHESIA Hx Anesthesia: Yes Meds Allergies/Adverse Reactions: Allergies Allergy/AdvReac Type Severity Reaction Status Date / Time haloperidol [From Haldol] Allergy ANAPHYLAXIS Verified 04/12/18 21:37 risperidone [From Risperdal] Allergy ANAPHYLAXIS Verified 04/12/18 21:37 shellfish derived Allergy ANAPHYLAXIS Verified 04/12/18 21:38 seafood Allergy ANAPHYLAXIS Uncoded 04/30/18 21:39 - Medications Medications: Current Medications Albuterol Sulfate (Albuterol 0.083% Inhal Irene (2.5 Mg/3 Ml) Ud) 2.5 mg INH Q6 PRN PRN Reason: Wheezing Buspirone HCl (Buspar) 5 mg PO TID [facility] PRN Reason: Protocol Last Admin: 05/03/18 13:09 Dose: 5 mg Calcium Carbonate (Oscal) 500 mg PO BID PRN PRN Reason: Indigestion / Heartburn Chlorpromazine (Thorazine) 50 mg IM Q6H PRN; Protocol PRN Reason: agitation and aggression Last Admin: 05/01/18 16:47 Dose: 50 mg Chlorpromazine (Thorazine) 50 mg PO BID [facility] PRN Reason: Protocol Chlorpromazine (Thorazine) 50 mg PO HS [facility] PRN Reason: Protocol Diphenhydramine HCl (Benadryl) 50 mg IM Q6H PRN PRN Reason: agitation/aggression Fluoxetine HCl (Prozac) 20 mg PO DAILY [facility] Last Admin: 05/03/18 13:09 Dose: 20 mg Fluticasone Propionate (Flonase) 1 actuation NS DAILY [facility] Last Admin: 05/03/18 08:54 Dose: 1 spray Gabapentin (Neurontin) 300 mg PO TID [facility] PRN Reason: Protocol Last Admin: 05/03/18 13:09 Dose: 300 mg Hydroxyzine Pamoate (Vistaril) 50 mg PO QID PRN; Protocol PRN Reason: Anxiety Last Admin: 05/02/18 17:08 Dose: 50 mg [place] Carbonate ([place] Carbonate 300mg) 300 mg PO TID [facility] Last Admin: 05/03/18 13:08 Dose: 300 mg Loratadine (Claritin) 10 mg PO DAILY PRN PRN Reason: Allergy symptoms Metformin HCl (Glucophage) 500 mg PO BID [facility] Last Admin: 05/03/18 08:53 Dose: 500 mg Multivitamins (Thera Tab) 1 tab PO DAILY [facility] Last Admin: 05/03/18 08:53 Dose: 1 tab Naltrexone HCl (Revia) 50 mg PO DAILY [facility] Last Admin: 05/03/18 13:09 Dose: 50 mg Nicotine (Nicoderm Cq) 1 patch TD DAILY [facility] Nitrofurantoin Macrocrystals (Macrobid) 100 mg PO Q12 [facility] PRN Reason: Protocol Last Admin: 05/03/18 06:35 Dose: 100 mg Non-Formulary Medication (Cabergoline [Cabergoline]) 0.75 mg PO TUE [place] Cabergoline [ Cabergoline] 0.75 Mg ) 0.75 mg PO FRI [facility] Pantoprazole Sodium (Protonix Ec Tab) 40 mg PO HS [facility] Last Admin: 05/02/18 22:01 Dose: Not Given Thiamine HCl (Vitamin B1 Tab) 100 mg PO DAILY [facility] Last Admin: 05/03/18 08:53 Dose: 100 mg Trazodone HCl (Desyrel) 50 mg PO HS PRN PRN Reason: depression/insomnia Physical Exam - Constitutional Appears: No Acute Distress - Head Exam Head Exam: ATRAUMATIC, NORMAL INSPECTION - Eye Exam Eye Exam: Normal appearance - ENT Exam ENT Exam: Mucous Membranes Moist - Respiratory Exam Respiratory Exam: Clear to Auscultation Bilateral. absent: Rales, Rhonchi, Wheezes - Cardiovascular Exam Cardiovascular Exam: REGULAR RHYTHM, +S1, +S2. absent: Gallop, Rubs, Systolic Murmur - GI/Abdominal Exam GI & Abdominal Exam: Normal Bowel Sounds, Soft. absent: Tenderness - Expanded Upper Extremities Exam Left Forearm Wrist exam: full ROM, tenderness - Neurological Exam Neurological exam: Alert, Oriented x3 Additional comments: Parasthesia on left lateral wrist extending to first metacarpal. - Psychiatric Exam Psychiatric exam: Normal Affect, Normal Mood Results - Vital Signs Recent Vital Signs: Last Vital Signs Temp 97.7 F 05/03/18 07:17 Pulse 88 05/03/18 15:54 Resp 18 05/03/18 07:17 BP 123/80 05/03/18 15:54 Pulse Ox 99 05/02/18 12:14 - Labs Result Diagrams: 04/30/18 22:57 04/30/18 22:57 Labs: Laboratory Results - last 24 hr 05/02/18 05/03/18 05/03/18 21:13 07:30 07:30 POC Glucose (mg/dL) 129 H Triglycerides 198 H Cholesterol 167 LDL Cholesterol Direct 101 HDL Cholesterol 38 RPR Nonreactive 05/03/18 05/03/18 05/03/18 07:42 11:57 16:07 POC Glucose (mg/dL) 98 74 121 H Triglycerides Cholesterol LDL Cholesterol Direct HDL Cholesterol RPR Assessment & Plan - Assessment and Plan (Free Text) Assessment: This is a 22 year old female with a PMH of asthma, type 2 diabetes, and recent ear infection presenting with diarrhea and left wrist pain. Plan: Watery diarrhea - hold dulcolax and senokot - CBC and CMP ordered Left wrist pain - Left wrist xray (05/03): negative for fractures or dislocation - will continue to monitor History of asthma - c/w with flonase and albuterol PRN History of DM-2 - c/w metformin 500mg BID History of psychiatric illnesses - management as per psych Patient case reviewed with and plan approved by attending physician, Dr. Callaway. - Date & Time Date: 05/03/18 Time: 13:54 <Jeannie Callaway R - Last Filed: 05/03/18 17:54> Meds - Medications Medications: Current Medications Albuterol Sulfate (Albuterol 0.083% Inhal Irene (2.5 Mg/3 Ml) Ud) 2.5 mg INH Q6 PRN PRN Reason: Wheezing Buspirone HCl (Buspar) 5 mg PO TID [facility] PRN Reason: Protocol Last Admin: 05/03/18 17:19 Dose: 5 mg Calcium Carbonate (Oscal) 500 mg PO BID PRN PRN Reason: Indigestion / Heartburn Chlorpromazine (Thorazine) 50 mg IM Q6H PRN; Protocol PRN Reason: agitation and aggression Last Admin: 05/01/18 16:47 Dose: 50 mg Chlorpromazine (Thorazine) 50 mg PO BID [facility] PRN Reason: Protocol Last Admin: 05/03/18 17:19 Dose: 50 mg Chlorpromazine (Thorazine) 50 mg PO HS [facility] PRN Reason: Protocol Diphenhydramine HCl (Benadryl) 50 mg IM Q6H PRN PRN Reason: agitation/aggression Fluoxetine HCl (Prozac) 20 mg PO DAILY [facility] Last Admin: 05/03/18 13:09 Dose: 20 mg Fluticasone Propionate (Flonase) 1 actuation NS DAILY [facility] Last Admin: 05/03/18 08:54 Dose: 1 spray Gabapentin (Neurontin) 300 mg PO TID [facility] PRN Reason: Protocol Last Admin: 05/03/18 17:19 Dose: 300 mg Hydroxyzine Pamoate (Vistaril) 50 mg PO QID PRN; Protocol PRN Reason: Anxiety Last Admin: 05/02/18 17:08 Dose: 50 mg [place] Carbonate ([place] Carbonate 300mg) 300 mg PO TID [facility] Last Admin: 05/03/18 17:19 Dose: 300 mg Loratadine (Claritin) 10 mg PO DAILY PRN PRN Reason: Allergy symptoms Metformin HCl (Glucophage) 500 mg PO BID [facility] Last Admin: 05/03/18 17:19 Dose: 500 mg Multivitamins (Thera Tab) 1 tab PO DAILY [facility] Last Admin: 05/03/18 08:53 Dose: 1 tab Naltrexone HCl (Revia) 50 mg PO DAILY [facility] Last Admin: 05/03/18 13:09 Dose: 50 mg Nicotine (Nicoderm Cq) 1 patch TD DAILY [facility] Nitrofurantoin Macrocrystals (Macrobid) 100 mg PO Q12 [facility] PRN Reason: Protocol Last Admin: 05/03/18 17:19 Dose: 100 mg Non-Formulary Medication (Cabergoline [Cabergoline]) 0.75 mg PO TUE SIDNEY Cabergoline [ Cabergoline] 0.75 Mg ) 0.75 mg PO FRI [facility] Pantoprazole Sodium (Protonix Ec Tab) 40 mg PO HS [facility] Last Admin: 05/02/18 22:01 Dose: Not Given Thiamine HCl (Vitamin B1 Tab) 100 mg PO DAILY [facility] Last Admin: 05/03/18 08:53 Dose: 100 mg Trazodone HCl (Desyrel) 50 mg PO HS PRN PRN Reason: depression/insomnia Results - Vital Signs Recent Vital Signs: Last Vital Signs Temp 97.7 F 05/03/18 07:17 Pulse 88 05/03/18 15:54 Resp 18 05/03/18 07:17 BP 123/80 05/03/18 15:54 Pulse Ox 99 05/02/18 12:14 - Labs Result Diagrams: 04/30/18 22:57 04/30/18 22:57 Labs: Laboratory Results - last 24 hr 05/02/18 05/03/18 05/03/18 21:13 07:30 07:30 POC Glucose (mg/dL) 129 H Triglycerides 198 H Cholesterol 167 LDL Cholesterol Direct 101 HDL Cholesterol 38 RPR Nonreactive 05/03/18 05/03/18 05/03/18 07:42 11:57 16:07 POC Glucose (mg/dL) 98 74 121 H Triglycerides Cholesterol LDL Cholesterol Direct HDL Cholesterol RPR Attending/Attestation - Attestation I have personally seen and examined this patient.: Yes I have fully participated in the care of the patient.: Yes I have reviewed all pertinent clinical information: Yes Notes (Text): Patient seen and examined by me at 11:40AM with resident. Case including HPI, physical exam, and physical assessment and plan discussed with resident. Agree with above with following additions/corrections. Patient is a 22-year-old female with past medical history significant for type 2 diabetes, asthma, GERD, and seasonal allergies that presented with depression and suicidal ideation. We are consulted for diarrhea and left wrist pain. Patient states that she has been having diarrhea for some time. She states that she was seen at another hospital recently for this. She states that she's made an appointment with the women's studies lecturer for outpatient follow-up. Per patient psychiatrist she was not complaining of diarrhea or abdominal pain yesterday. Patient states that she's had approximately 6-8 episodes today. No associated fevers or chills. No nausea or vomiting. Patient states she has some left sided and epigastric abdominal pain. Patient also complains of left wrist pain after having been handcuffed by police yesterday. Patient is able to make a fist and move all fingers. No headaches or dizziness. No chest pain or shortness of breath. No dysuria. No neck pain or back pain. 14 point review of systems reviewed by me. See above HPI. All other review of systems negative. Physical exam: Gen: Awake and alert sitting up in bed in no acute distress HEENT: Normocephalic atraumatic. Extraocular muscles intact, pupils equal reactive. No scleral icterus. Oropharynx is pink and moist, no pharyngeal erythema or exudate appreciated. Neck is supple. Hearing grossly intact. Ears and nose externally unremarkable. Cardiovascular: Normal rhythm, normal S1-S2. No murmurs, rubs, or gallops appreciated Pulmonary: Normal respiratory effort. No rhonchi, rales or wheezing appreciated. Gastrointestinal: Soft, mild tenderness epigastric region and left abdomen, nondistended, positive bowel sounds all 4 quadrants, no guarding Musculoskeletal: Normal range of motion all extremities, no calf tenderness, no CVA tenderness Vascular: 2+ peripheral pulses upper and lower extremities Central nervous system: AAO 3. Cranial nerves 2 -12 grossly intact. 5 out of 5 muscle strength all extremities. Sensation intact. Good licensed clinician strength bilaterally Dermatologic: Skin warm and dry. Positive scaly, patchy rash left side of neck Assessment and plan: Patient is a 22-year-old female with past medical history significant for type 2 diabetes, asthma, GERD, and seasonal allergies that presented with depression and suicidal ideation. We are consulted for diarrhea and left wrist pain. 1. Diarrhea. Follow-up labs. Senna and Dulcolax held. Monitor for improvement. 2. Left wrist pain. X-ray shows no fractures. Patient has good pulses. Continue to monitor for now 3. History of asthma, seasonal allergies. Not in acute exacerbation. Continue albuterol as needed. Continue with Flonase 4. Type 2 diabetes. Continue metformin. Monitor Accu-Cheks. 5. Depression and suicidal ideation. Care as per primary team Case was discussed in detail with the patient, psychiatrist, and medical staffing coordinator regarding current diagnosis and treatment plan. Thank you for allowing us to participate in the care of your patient. We will follow with you.
[2018-05-03] MEDS: Pantoprazole 40 mg EC Tab PO SCH (21:15)
[2018-05-04 08:00] LABS: BASO % 0.2 % (0.0-3.0); EOS % 2.1 % (1.5-5.0); GRAN % 68.2 % (50.0-68.0); HEMOGLOBIN 12.4 g/dL (12.0-16.0); LYMPH % 23.9 % (22.0-35.0); MEAN CELL VOLUME 80.4 fl (80.0-105.0); MEAN CORPUSCULAR HEMOGLOBIN 26.2 pg (25.0-35.0); MEAN CORPUSCULAR HGB CONC 32.5 g/dl (31.0-37.0); MEAN PLATELET VOLUME 9.4 fl (7.0-11.0); MONO % 5.6 % (1.0-6.0); RBC 4.74 10^6/uL (3.5-6.1); RED CELL DISTRIBUTION WIDTH 13.7 % (11.5-14.5); WHITE BLOOD COUNT 14.2 10^3/ul (4.5-11.0)
[2018-05-04 08:01] LABS: BASO # 0.03 K/mm3 (0.0-2.0); EOS # 0.3 (0.0-0.7); GRAN # 9.7 (1.4-6.5); LYMPH # 3.4 (1.2-3.4); MONO # 0.8 (0.1-0.6)
[2018-05-04 08:24] LABS: ALB/GLOB RATIO 1.3 (1.1-1.8); ALBUMIN 4.1 g/dL (3.0-4.8); ALT/SGPT 35 U/L (7-56); AST/SGOT 25 U/L (14-36); BLOOD UREA NITROGEN 7 mg/dL (7-21); CALCIUM 9.5 mg/dL (8.4-10.5); GFR AFRICAN-AMERICAN > 60; GFR NON-AFRICAN AMERICAN > 60
[2018-05-04] MEDS: Multivitamin Therapeutic Tab PO SCH (09:29)
[2018-05-04] MEDS: Fluticasone Nasal 50 mcg/Spray NS SCH (09:32)
[2018-05-04] MEDS ORDERED: Iohexol 350 MG/100 ML VIAL ONE (13:47)
--- NOTE | 2018-05-04 13:51 | PCM.PYCHPN ---
Psychiatric Progress Note - Psychiatric Progress Note Patient seen today, length of contact: 30min Patient Chief Complaint: "I have very important test on Sunday, I need to be discharged by then" Problems Identified/Issues Discussed: Suicide/ homicide prevention, past psychiatric h/o, current psychiatric symptoms , medical problems, risk/benefits and alternatives of medications, medications compliance, coping strategies, substance abuse h/o, relapse prevention, importance of follow up with psychiatrist and therapist, discharge plan. Medical Problems: multiple medical issues please see medical note for more detailed info Diagnostic Results: 05/04/18 07:00 05/04/18 07:00 Lab Results 05/04/18 07:29: POC Glucose (mg/dL) 98 05/04/18 07:00: Sodium 140, Potassium 4.3, Chloride 102, Carbon Dioxide 28, Anion Gap 14, BUN 7, Creatinine 0.6 L, Est GFR ( Amer) > 60, Est GFR (Non -Af Amer) > 60, Random Glucose 108, Calcium 9.5, Total Bilirubin 0.4, AST 25, ALT 35, Alkaline Phosphatase 60, Total Protein 7.4, Albumin 4.1, Globulin 3.3, Albumin/Globulin Ratio 1.3 05/04/18 07:00: WBC 14.2 H, RBC 4.74, Hgb 12.4, Hct 38.1, MCV 80.4, MCH 26.2, MCHC 32.5, RDW 13.7, Plt Count 406, MPV 9.4, Gran % 68.2 H, Lymph % (Auto) 23.9 , [place] % (Auto) 5.6, Eos % (Auto) 2.1, Baso % (Auto) 0.2, Gran # 9.70 H, Lymph # (Auto) 3.4, [place] # (Auto) 0.8 H, Eos # (Auto) 0.3, Baso # (Auto) 0.03 05/03/18 21:12: POC Glucose (mg/dL) 109 05/03/18 16:07: POC Glucose (mg/dL) 121 H 05/03/18 11:57: POC Glucose (mg/dL) 74 05/03/18 07:42: POC Glucose (mg/dL) 98 05/03/18 07:30: RPR Nonreactive 05/03/18 07:30: Triglycerides 198 H, Cholesterol 167, LDL Cholesterol Direct 101 , HDL Cholesterol 38 05/02/18 21:13: POC Glucose (mg/dL) 129 H 05/02/18 16:19: POC Glucose (mg/dL) 82 05/02/18 08:02: POC Glucose (mg/dL) 95 05/01/18 09:13: POC Glucose (mg/dL) 106 05/01/18 00:25: POC Glucose (mg/dL) 82 04/30/18 22:57: Alcohol, Quantitative < 10 04/30/18 22:57: Salicylates < 1 L, Acetaminophen < 10.0 L 04/30/18 22:57: Sodium 142, Potassium 3.9, Chloride 106, Carbon Dioxide 24, Anion Gap 16, BUN 7, Creatinine 0.6 L, Est GFR ( Amer) > 60, Est GFR (Non -Af Amer) > 60, Random Glucose 90, Calcium 9.9, Total Bilirubin 0.2, AST 35, ALT 39, Alkaline Phosphatase 60, Total Protein 7.6, Albumin 4.4, Globulin 3.2, Albumin/Globulin Ratio 1.4 04/30/18 22:57: WBC 13.9 H, RBC 4.62, Hgb 12.0, Hct 36.6, MCV 79.2 L, MCH 26.0, MCHC 32.8, RDW 13.8, Plt Count 462 H, MPV 9.4, Gran % 69.5 H, Lymph % (Auto) 23.7, [place] % (Auto) 5.4, Eos % (Auto) 1.3 L, Baso % (Auto) 0.1, Gran # 9.68 H, Lymph # (Auto) 3.3, [place] # (Auto) 0.8 H, Eos # (Auto) 0.2, Baso # (Auto) 0.02 04/30/18 22:44: Urine Opiates Screen Negative, Urine Methadone Screen Negative, Ur Barbiturates Screen Negative, Ur Phencyclidine Scrn Negative, Ur Amphetamines Screen Negative, U Benzodiazepines Scrn Negative, U Oth Cocaine Metabols Negative, U Cannabinoids Screen Negative 04/30/18 22:44: Urine Color Yellow, Urine Appearance Clear, Urine pH 6.0, Ur Specific [place] 1.020, Urine Protein Negative, Urine Glucose (UA) Negative, Urine Ketones Negative, Urine Blood Negative, Urine Nitrate Negative, Urine Bilirubin Negative, Urine Urobilinogen 0.2, Ur Leukocyte Esterase Trace H, Urine RBC Negative, Urine WBC 0 - 2, Ur Epithelial Cells 0 - 2, Urine Bacteria None Vital Signs Temp Pulse Pulse Resp BP Pulse Ox 05/04/18 07:19 97.7 F 65 20 103/68 05/03/18 15:54 88 123/80 05/03/18 07:17 97.7 F 63 18 110/68 05/02/18 15:39 75 17 05/02/18 12:14 78 18 99 05/02/18 11:40 97.3 F L 73 18 108/69 99 05/02/18 10:15 88 18 110/69 99 05/02/18 08:01 97.1 F L 64 16 93/61 L 98 05/02/18 05:00 74 16 110/68 97 05/02/18 01:00 77 16 118/70 97 05/01/18 21:00 84 16 115/68 98 05/01/18 19:15 98.4 F 66 17 102/67 97 05/01/18 16:11 80 16 136/82 99 05/01/18 14:11 83 16 122/86 99 05/01/18 12:10 88 16 99 05/01/18 10:09 88 16 120/82 99 05/01/18 08:08 88 16 120/78 99 05/01/18 05:14 98.1 F 90 18 117/80 98 05/01/18 00:30 98.5 F 71 18 112/78 98 04/30/18 22:43 97.4 F L 74 18 115/82 98 DSM 5 Symptoms Update: Ilya Fedler is a 22 yo female with developmental disability , borderline personality, hx of noncompliance, and ?schizoaffective disorder and multiple prior psych hospitalizations who presents to the ED by ambulance after running away from her assisted. The patient states that she has been very depressed and does not like living in the assisted because staff are rude and are around 24/7. She is frustrated because she would like to live somewhere with more freedom. Her plan was to go back to where she used to hang out on the streets and sell/use drugs. She ran away from the assisted 3 days prior and was brought to [facility] after being found walking on the street. She was discharged back to the assisted. She then packed her bags to run away again and her fiance called the police because he was afraid she was suicidal. She reports telling him on facebook that she was going to run away to OD on heroin to get high. While in the ED, she was screened by [facility] and [facility] and did not meet criteria for either. patient was seen and examined today Nursing station, patient presented with full range of affect, patient was able to express her needs, patient has strong borderline personality traits, patient constantly asking questions about medications, about Chintan, about unit structure, about meeting with her assisted, about discharge, patient seems to be a good and reliable historian, reported that she had prolactin level elevated in the past and it was due to Risperdal, "my mom is going to file a lost to the Risperdal". prolactin level will be checked. patient reported that she had history of ear infection, asked to be seen by medical team, patient also reported that her stomach is upset and she had one episode of vomiting, medical team evaluated patient and CT scan of the abdomen was ordered. patient requested to be on the regular diet, which proves that patient is not suicidal and patient has good appetite, patient was able to control herself, other patient M,S was making comments about this pt, pt was in good behavioral control asked staff to help, pt said "I do not need any problems, I will just ingore her". pt reported "still hearing voices and things", but patient is not responding to internal stimuli, patient is not presented to be psychotic, thought process is logical and goal directed. Patient asked about her discharge plan, patient reported that she has important appointment on Sunday "I have lump in my breast, I need to have biopsy, I do want to miss that appointment", this proposal manager writer repeat that pt has future oriented plans, most likely pt has severe borderline personality disorder. pt was seen by medical team. so far patient tolerates medications well, no side effects observed or reported , aims 0, no EPS. Impression: Questionable history of schizophrenia Questionable history of schizoaffective disorder Questionable history of developmental disability Mood disorder NOS Severe borderline personality disorder History of PTSD. Medication Change: Yes (Thorazine started, BuSpar discontinued) Medical Record Reviewed: Yes Consults ordered or reviewed: medical consult appreciated Mental Status Examination - Cognitive Function Orientation: Person, Place, Situation, Time Memory: Intact Attention: Poor Concentration: Poor Association: WNL Fund of Knowledge: WNL - Mood Mood: Depressed - Affect Affect: Broad (expanded, mood incongruent) - Speech Speech: Appropriate - Formal Thought Process Formal Thought Process: Hallucinations (patient reprots hearing voices and seeing images but does not appear to be responding to internal stimuli, thought process/speech very organized) - Suicidal Ideation Suicidal Ideation: No - Homicidal Ideation Homicidal Ideation: No Goal/Treatment Plan - Goal/Treatment Plan Need for Continued Stay: Remain at risks for inpatient hospitalization, Severe depression anxiety, Discharge may exacerbated symptoms, Severe functional impairment Progress Toward Problem(s) and Goals/Treatment Plan: pt was requesting ECT, no indication agree with tx plan d/w medical team and attending. meeting with DDD worker, assisted loan servicing representative for the next week Prozac 20 mg daily for depression and anxiety [place] 300 mg tid for mood stabilization Buspar d/c Gabapentin 300 mg tid for anxiety Naltrexone 50 daily for cravings Trazodone 50 mg qhs prn for depression and insomnia Thorazine 50 mg bid, qhs for psychotic symptoms Thorazine 50 mg IM qid prn for agitation/psychosis- required IM x1 05/01, PO x1 Vistaril 50 mg PO qid prn for anxiety- required x1 05/02 Benadryl 50 mg IM q6hrs prn for agitation Medicine consult for diarrhea and wrist pain- recs appreciated Milieu and group therapy SW consult for social issues and discharge planning Pt was educated about risk/benefits and alternatives of medications, coping strategies (safety plan, suicide prevention), relapse prevention, importance of follow up with psychiatrist and therapist, stay away from drugs/alcohol/smoking. Dialectical behavioral therapy recommended Estimated Date of D/C: 05/10/18
--- NOTE | 2018-05-04 14:45 | CP.PCM.PN ---
<Bubba Miranda - Last Filed: 05/04/18 15:03> Subjective - Date & Time of Evaluation Date of Evaluation: 05/04/18 Time of Evaluation: 14:40 - Subjective Subjective: Irwin Miranda PGY2 - IM Progress Note - Dr. Callaway Patient seen and examined this AM. Patient reports vomiting and nausea symptoms overnight. She also reports dysuria and suprapubic tnederness bilaterally. She denies chest pain, shortness of breath, poor oral intake, weakness, fever, chills, diarrhea. Objective - Vital Signs/Intake and Output Vital Signs (last 24 hours): Temp Pulse Resp BP Pulse Ox 97.7 F 65 20 103/68 99 05/04/18 07:19 05/04/18 07:19 05/04/18 07:19 05/04/18 07:19 05/02/18 12:14 - Medications Medications: Current Medications Albuterol Sulfate (Albuterol 0.083% Inhal Irene (2.5 Mg/3 Ml) Ud) 2.5 mg INH Q6 PRN PRN Reason: Wheezing Calcium Carbonate (Oscal) 500 mg PO BID PRN PRN Reason: Indigestion / Heartburn Last Admin: 05/04/18 09:29 Dose: 500 mg Chlorpromazine (Thorazine) 50 mg IM Q6H PRN; Protocol PRN Reason: agitation and aggression Last Admin: 05/01/18 16:47 Dose: 50 mg Chlorpromazine (Thorazine) 50 mg PO BID SIDNEY PRN Reason: Protocol Last Admin: 05/04/18 09:30 Dose: 50 mg Chlorpromazine (Thorazine) 50 mg PO HS SIDNEY PRN Reason: Protocol Last Admin: 05/03/18 21:15 Dose: 50 mg Diphenhydramine HCl (Benadryl) 50 mg IM Q6H PRN PRN Reason: agitation/aggression Fluoxetine HCl (Prozac) 20 mg PO DAILY [facility] Last Admin: 05/04/18 09:28 Dose: 20 mg Fluticasone Propionate (Flonase) 1 actuation NS DAILY [facility] Last Admin: 05/04/18 09:32 Dose: 1 spray Gabapentin (Neurontin) 300 mg PO TID [facility]NEY PRN Reason: Protocol Last Admin: 05/04/18 09:29 Dose: 300 mg Hydroxyzine Pamoate (Vistaril) 50 mg PO QID PRN; Protocol PRN Reason: Anxiety Last Admin: 05/04/18 09:28 Dose: 50 mg Garceno Carbonate (Garceno Carbonate 300mg) 300 mg PO TID [facility] Last Admin: 05/04/18 09:29 Dose: 300 mg Loratadine (Claritin) 10 mg PO DAILY PRN PRN Reason: Allergy symptoms Metformin HCl (Glucophage) 500 mg PO BID [facility] Last Admin: 05/04/18 09:29 Dose: 500 mg Multivitamins (Thera Tab) 1 tab PO DAILY [facility] Last Admin: 05/04/18 09:29 Dose: 1 tab Naltrexone HCl (Revia) 50 mg PO DAILY [facility] Last Admin: 05/04/18 09:30 Dose: 50 mg Nicotine (Nicoderm Cq) 1 patch TD DAILY [facility] Last Admin: 05/04/18 10:37 Dose: Not Given Nitrofurantoin Macrocrystals (Macrobid) 100 mg PO Q12 [facility]NEY PRN Reason: Protocol Last Admin: 05/04/18 06:18 Dose: 100 mg Non-Formulary Medication (Cabergoline [Cabergoline]) 0.75 mg PO TUE [facility] Cabergoline [ Cabergoline] 0.75 Mg ) 0.75 mg PO FRI [facility] Ondansetron HCl (Zofran Tab) 4 mg PO Q8H PRN PRN Reason: Nausea/Vomiting Last Admin: 05/04/18 10:30 Dose: 4 mg Pantoprazole Sodium (Protonix Ec Tab) 40 mg PO HS [facility] Last Admin: 05/03/18 21:15 Dose: 40 mg Thiamine HCl (Vitamin B1 Tab) 100 mg PO DAILY [facility] Last Admin: 05/04/18 09:29 Dose: 100 mg Trazodone HCl (Desyrel) 50 mg PO HS PRN PRN Reason: depression/insomnia Last Admin: 05/03/18 21:15 Dose: 50 mg - Labs Labs: 05/04/18 07:00 05/04/18 07:00 - Constitutional Appears: No Acute Distress - Head Exam Head Exam: ATRAUMATIC, NORMAL INSPECTION, NORMOCEPHALIC - Eye Exam Eye Exam: EOMI, PERRL Pupil Exam: NORMAL ACCOMODATION - ENT Exam ENT Exam: Mucous Membranes Moist - Respiratory Exam Respiratory Exam: Clear to Ausculation Bilateral, NORMAL BREATHING PATTERN. absent: Wheezes - Cardiovascular Exam Cardiovascular Exam: REGULAR RHYTHM, +S1, +S2 - GI/Abdominal Exam GI & Abdominal Exam: Soft, Tenderness (mild suprapubic b/l) - Extremities Exam Extremities Exam: absent: Calf Tenderness, Pedal Edema - Back Exam Back Exam: Full ROM. absent: paraspinal tenderness - Neurological Exam Neurological Exam: Alert, Awake, Normal Gait, Oriented x3 Neuro motor strength exam: Left Upper Extremity: 5, Right Upper Extremity: 5, Left Lower Extremity: 5, Right Lower Extremity: 5 - Psychiatric Exam Psychiatric exam: Normal Affect, Normal Mood - Skin Skin Exam: Dry, Intact Assessment and Plan - Assessment and Plan (Free Text) Assessment: 22 year old female with past medical history of asthma, DM2, GERD who presented to [facility] ED with depresision and SI. Internal medicine was consulted for diarrhea and left wrist pain Plan: Abdominal discomfort associated with nausea/vomiting - Afebrile, no leukocytosis, ambulating appropriately - Abdominal/Pelvis CT with PO contrast follow up - LFTs wnl, passing flatus, diarrhea - monitor Asthma - Flonase - Albuterol PRN UTI - continue nitrofurantoin day 3 DM2 - Metformin on hold - ISS low - ACHS Depression/Suicidal Ideation - Continue with psychiatric medications and therapy Case and plan discussed with attending, Dr. Nilton Miranda PGY2 <Jeannie Callaway - Last Filed: 05/04/18 16:16> Objective - Vital Signs/Intake and Output Vital Signs (last 24 hours): Temp Pulse Resp BP Pulse Ox 97.7 F 65 20 103/68 99 05/04/18 07:19 05/04/18 07:19 05/04/18 07:19 05/04/18 07:19 05/02/18 12:14 - Medications Medications: Current Medications Albuterol Sulfate (Albuterol 0.083% Inhal Irene (2.5 Mg/3 Ml) Ud) 2.5 mg INH Q6 PRN PRN Reason: Wheezing Calcium Carbonate (Oscal) 500 mg PO BID PRN PRN Reason: Indigestion / Heartburn Last Admin: 05/04/18 09:29 Dose: 500 mg Chlorpromazine (Thorazine) 50 mg IM Q6H PRN; Protocol PRN Reason: agitation and aggression Last Admin: 05/01/18 16:47 Dose: 50 mg Chlorpromazine (Thorazine) 50 mg PO BID [facility] PRN Reason: Protocol Last Admin: 05/04/18 15:34 Dose: Not Given Chlorpromazine (Thorazine) 50 mg PO HS [facility] PRN Reason: Protocol Last Admin: 05/03/18 21:15 Dose: 50 mg Diphenhydramine HCl (Benadryl) 50 mg IM Q6H PRN PRN Reason: agitation/aggression Fluoxetine HCl (Prozac) 20 mg PO DAILY [facility] Last Admin: 05/04/18 09:28 Dose: 20 mg Fluticasone Propionate (Flonase) 1 actuation NS DAILY [facility] Last Admin: 05/04/18 09:32 Dose: 1 spray Gabapentin (Neurontin) 300 mg PO TID [facility] PRN Reason: Protocol Last Admin: 05/04/18 15:25 Dose: 300 mg Hydroxyzine Pamoate (Vistaril) 50 mg PO QID PRN; Protocol PRN Reason: Anxiety Last Admin: 05/04/18 09:28 Dose: 50 mg Insulin Human Regular (Humulin R Low) 0 units SC [facility] PRN Reason: Protocol Garceno Carbonate (Garceno Carbonate 300mg) 300 mg PO TID [facility] Last Admin: 05/04/18 15:24 Dose: 300 mg Loratadine (Claritin) 10 mg PO DAILY PRN PRN Reason: Allergy symptoms Metformin HCl (Glucophage) 500 mg PO BID [facility] Last Admin: 05/04/18 09:29 Dose: 500 mg Multivitamins (Thera Tab) 1 tab PO DAILY [facility] Last Admin: 05/04/18 09:29 Dose: 1 tab Naltrexone HCl (Revia) 50 mg PO DAILY [facility] Last Admin: 05/04/18 09:30 Dose: 50 mg Nicotine (Nicoderm Cq) 1 patch TD DAILY [facility] Last Admin: 05/04/18 10:37 Dose: Not Given Nitrofurantoin Macrocrystals (Macrobid) 100 mg PO Q12 [facility] PRN Reason: Protocol Last Admin: 05/04/18 06:18 Dose: 100 mg Non-Formulary Medication (Cabergoline [Cabergoline]) 0.75 mg PO TUE [facility] Cabergoline [ Cabergoline] 0.75 Mg ) 0.75 mg PO FRI [facility] Ondansetron HCl (Zofran Tab) 4 mg PO Q8H PRN PRN Reason: Nausea/Vomiting Last Admin: 05/04/18 10:30 Dose: 4 mg Pantoprazole Sodium (Protonix Ec Tab) 40 mg PO HS [facility] Last Admin: 05/03/18 21:15 Dose: 40 mg Thiamine HCl (Vitamin B1 Tab) 100 mg PO DAILY [facility] Last Admin: 05/04/18 09:29 Dose: 100 mg Trazodone HCl (Desyrel) 50 mg PO HS PRN PRN Reason: depression/insomnia Last Admin: 05/03/18 21:15 Dose: 50 mg - Labs Labs: 05/04/18 07:00 05/04/18 07:00 Attending/Attestation - Attestation I have personally seen and examined this patient.: Yes I have fully participated in the care of the patient.: Yes I have reviewed all pertinent clinical information, including history, physical exam and plan: Yes Notes (Text): Patient seen and examined by me at 9:45AM with resident. Case including HPI, physical exam, and physical assessment and plan discussed with resident. Agree with above with following additions/corrections. Patient states she is feeling okay. Still complaining of some abdominal pain and diarrhea. States she had an episode of vomiting last night. No associated fevers or chills. Patient appears very comfortable. Left wrist pain has improved. No headaches or dizziness. No chest pain or shortness of breath. Complains of a little burning with urination today.. No neck pain or back pain. Physical exam: Gen: Awake and alert sitting up in bed in no acute distress HEENT: Normocephalic atraumatic. Extraocular muscles intact, pupils equal reactive. No scleral icterus. Oropharynx is pink and moist, no pharyngeal erythema or exudate appreciated. Neck is supple. Cardiovascular: Normal rhythm, normal S1-S2. No murmurs, rubs, or gallops appreciated Pulmonary: Normal respiratory effort. No rhonchi, rales or wheezing appreciated. Gastrointestinal: Soft, mild tenderness epigastric region and left abdominal tenderness, nondistended, positive bowel sounds all 4 quadrants, no guarding Musculoskeletal: Normal range of motion all extremities, no calf tenderness, no CVA tenderness Vascular: 2+ peripheral pulses upper and lower extremities Central nervous system: AAO 3. Cranial nerves 2 -12 grossly intact. 5 out of 5 muscle strength all extremities. Sensation intact. Good club room attendant strength bilaterally Dermatologic: Skin warm and dry Assessment and plan: Patient is a 22-year-old female with past medical history significant for type 2 diabetes, asthma, GERD, and seasonal allergies that presented with depression and suicidal ideation. We are consulted for diarrhea and left wrist pain. 1. Diarrhea. No hypokalemia. She does not appear dehydrated. Will check CT abdomen and pelvis to rule out colitis. 2. Leukocytosis. May be reactive. She is afebrile. Will check CT abdomen and pelvis to rule out colitis. 3. Abnormal urinalysis. Urine culture positive for gram-negative rods, less than 10,000 CFU. Patient has been on Macrobid. We'll complete third day tomorrow 4. Left wrist pain. Improved X-ray shows no fractures. Patient has good pulses. Continue to monitor for now 5. History of asthma, seasonal allergies. Not in acute exacerbation. Continue albuterol as needed. Continue with Flonase 6. Type 2 diabetes. Continue metformin. Monitor Accu-Cheks. 7. Depression and suicidal ideation. Care as per primary team Case was discussed in detail with the patient, psychiatrist, and medical office specialist regarding current diagnosis and treatment plan.
--- NOTE | 2018-05-04 15:09 | CT ---
Date of service: 05/04/2018 PROCEDURE: CT Abdomen and Pelvis with contrast HISTORY: abdominal pain / diarrhea COMPARISON: None. TECHNIQUE: CT scan of the abdomen and pelvis was performed without administration of intravenous contrast. Oral contrast was administered. Coronal and sagittal reformatted images were obtained. Contrast dose: Radiation dose: Total exam DLP = 1075.88 mGy-cm. This CT exam was performed using one or more of the following dose reduction techniques: Automated exposure control, adjustment of the mA and/or kV according to patient size, and/or use of iterative reconstruction technique. FINDINGS: LOWER THORAX: The visualized lungs are clear. LIVER: Normal in size. No gross lesion or ductal dilatation. GALLBLADDER AND BILE DUCTS: No calcified gallstones. PANCREAS: Normal in sinus. No gross lesion or ductal dilatation. SPLEEN: Normal in sinus. ADRENALS: No discrete nodule. KIDNEYS AND URETERS: Normal in size without nephrolithiasis. No hydronephrosis. VASCULATURE: No aortic aneurysm. BOWEL: The small bowel loops are normal in caliber. The terminal ileum and ileocecal junction are normal. The colon is unremarkable. No bowel dilatation, wall thickening or obstruction. APPENDIX: Normal appendix. PERITONEUM: No free fluid. No free air. LYMPH NODES: There are prominent subcentimeter lymph nodes in the right lower quadrant. BLADDER: Well distended and normal in appearance. REPRODUCTIVE: The uterus is normal in size. There is a 4.0 x 3.8 cm cyst in the right ovary. BONES: No acute fracture. Within normal limits for the patient's age. OTHER FINDINGS: None. IMPRESSION: No acute abdominal or pelvic abnormality. 4.0 cm simple cyst in the right ovary. Correlation with pelvic ultrasound may be performed if clinically indicated.
[2018-05-04] MEDS: Insulin Reg-LOW-Coverage SC SCH ×2 (17:00→22:31)
[2018-05-04] MEDS: Pantoprazole 40 mg EC Tab PO SCH (22:05)
[2018-05-05 07:42] LABS: BASO # 0.02 K/mm3 (0.0-2.0); BASO % 0.2 % (0.0-3.0); EOS # 0.3 (0.0-0.7); GRAN # 8.56 (1.4-6.5); GRAN % 69.1 % (50.0-68.0); LYMPH # 2.8 (1.2-3.4); LYMPH % 22.7 % (22.0-35.0); MEAN CELL VOLUME 80.3 fl (80.0-105.0); MEAN CORPUSCULAR HEMOGLOBIN 25.6 pg (25.0-35.0); MEAN CORPUSCULAR HGB CONC 31.9 g/dl (31.0-37.0); MEAN PLATELET VOLUME 9.4 fl (7.0-11.0); MONO # 0.7 (0.1-0.6); RBC 4.68 10^6/uL (3.5-6.1); RED CELL DISTRIBUTION WIDTH 13.8 % (11.5-14.5); WHITE BLOOD COUNT 12.4 10^3/ul (4.5-11.0)
[2018-05-05] MEDS: Insulin Reg-LOW-Coverage SC SCH ×4 (07:55→21:28)
[2018-05-05 08:06] LABS: ALB/GLOB RATIO 1.3 (1.1-1.8); ALBUMIN 4.1 g/dL (3.0-4.8); ALT/SGPT 30 U/L (7-56); AST/SGOT 31 U/L (14-36); BLOOD UREA NITROGEN 9 mg/dL (7-21); CALCIUM 9.6 mg/dL (8.4-10.5); GFR AFRICAN-AMERICAN > 60; GFR NON-AFRICAN AMERICAN > 60
[2018-05-05] MEDS: Multivitamin Therapeutic Tab PO SCH (09:53)
[2018-05-05] MEDS: Fluticasone Nasal 50 mcg/Spray NS SCH (09:55)
--- NOTE | 2018-05-05 11:00 | PCM.PYCHPN ---
Psychiatric Progress Note - Psychiatric Progress Note Patient seen today, length of contact: 30min Patient Chief Complaint: "I feel fine, I am good" Problems Identified/Issues Discussed: Suicide/ homicide prevention, past psychiatric h/o, current psychiatric symptoms , medical problems, risk/benefits and alternatives of medications, medications compliance, coping strategies, substance abuse h/o, relapse prevention, importance of follow up with psychiatrist and therapist, discharge plan. Medical Problems: multiple medical issues please see medical note for more detailed info Diagnostic Results: 05/04/18 07:00 05/04/18 07:00 Lab Results 05/04/18 07:29: POC Glucose (mg/dL) 98 05/04/18 07:00: Sodium 140, Potassium 4.3, Chloride 102, Carbon Dioxide 28, Anion Gap 14, BUN 7, Creatinine 0.6 L, Est GFR ( Amer) > 60, Est GFR (Non -Af Amer) > 60, Random Glucose 108, Calcium 9.5, Total Bilirubin 0.4, AST 25, ALT 35, Alkaline Phosphatase 60, Total Protein 7.4, Albumin 4.1, Globulin 3.3, Albumin/Globulin Ratio 1.3 05/04/18 07:00: WBC 14.2 H, RBC 4.74, Hgb 12.4, Hct 38.1, MCV 80.4, MCH 26.2, MCHC 32.5, RDW 13.7, Plt Count 406, MPV 9.4, Gran % 68.2 H, Lymph % (Auto) 23.9 , Williamson % (Auto) 5.6, Eos % (Auto) 2.1, Baso % (Auto) 0.2, Gran # 9.70 H, Lymph # (Auto) 3.4, Williamson # (Auto) 0.8 H, Eos # (Auto) 0.3, Baso # (Auto) 0.03 05/03/18 21:12: POC Glucose (mg/dL) 109 05/03/18 16:07: POC Glucose (mg/dL) 121 H 05/03/18 11:57: POC Glucose (mg/dL) 74 05/03/18 07:42: POC Glucose (mg/dL) 98 05/03/18 07:30: RPR Nonreactive 05/03/18 07:30: Triglycerides 198 H, Cholesterol 167, LDL Cholesterol Direct 101 , HDL Cholesterol 38 05/02/18 21:13: POC Glucose (mg/dL) 129 H 05/02/18 16:19: POC Glucose (mg/dL) 82 05/02/18 08:02: POC Glucose (mg/dL) 95 05/01/18 09:13: POC Glucose (mg/dL) 106 05/01/18 00:25: POC Glucose (mg/dL) 82 04/30/18 22:57: Alcohol, Quantitative < 10 04/30/18 22:57: Salicylates < 1 L, Acetaminophen < 10.0 L 04/30/18 22:57: Sodium 142, Potassium 3.9, Chloride 106, Carbon Dioxide 24, Anion Gap 16, BUN 7, Creatinine 0.6 L, Est GFR ( Amer) > 60, Est GFR (Non -Af Amer) > 60, Random Glucose 90, Calcium 9.9, Total Bilirubin 0.2, AST 35, ALT 39, Alkaline Phosphatase 60, Total Protein 7.6, Albumin 4.4, Globulin 3.2, Albumin/Globulin Ratio 1.4 04/30/18 22:57: WBC 13.9 H, RBC 4.62, Hgb 12.0, Hct 36.6, MCV 79.2 L, MCH 26.0, MCHC 32.8, RDW 13.8, Plt Count 462 H, MPV 9.4, Gran % 69.5 H, Lymph % (Auto) 23.7, Williamson % (Auto) 5.4, Eos % (Auto) 1.3 L, Baso % (Auto) 0.1, Gran # 9.68 H, Lymph # (Auto) 3.3, Williamson # (Auto) 0.8 H, Eos # (Auto) 0.2, Baso # (Auto) 0.02 04/30/18 22:44: Urine Opiates Screen Negative, Urine Methadone Screen Negative, Ur Barbiturates Screen Negative, Ur Phencyclidine Scrn Negative, Ur Amphetamines Screen Negative, U Benzodiazepines Scrn Negative, U Oth Cocaine Metabols Negative, U Cannabinoids Screen Negative 04/30/18 22:44: Urine Color Yellow, Urine Appearance Clear, Urine pH 6.0, Ur Specific Hampton 1.020, Urine Protein Negative, Urine Glucose (UA) Negative, Urine Ketones Negative, Urine Blood Negative, Urine Nitrate Negative, Urine Bilirubin Negative, Urine Urobilinogen 0.2, Ur Leukocyte Esterase Trace H, Urine RBC Negative, Urine WBC 0 - 2, Ur Epithelial Cells 0 - 2, Urine Bacteria None Vital Signs Temp Pulse Pulse Resp BP Pulse Ox 05/04/18 07:19 97.7 F 65 20 103/68 05/03/18 15:54 88 123/80 05/03/18 07:17 97.7 F 63 18 110/68 05/02/18 15:39 75 17 05/02/18 12:14 78 18 99 05/02/18 11:40 97.3 F L 73 18 108/69 99 05/02/18 10:15 88 18 110/69 99 05/02/18 08:01 97.1 F L 64 16 93/61 L 98 05/02/18 05:00 74 16 110/68 97 05/02/18 01:00 77 16 118/70 97 05/01/18 21:00 84 16 115/68 98 05/01/18 19:15 98.4 F 66 17 102/67 97 05/01/18 16:11 80 16 136/82 99 05/01/18 14:11 83 16 122/86 99 05/01/18 12:10 88 16 99 05/01/18 10:09 88 16 120/82 99 05/01/18 08:08 88 16 120/78 99 05/01/18 05:14 98.1 F 90 18 117/80 98 05/01/18 00:30 98.5 F 71 18 112/78 98 04/30/18 22:43 97.4 F L 74 18 115/82 98 Temp Pulse Resp BP Pulse Ox 98.1 F 94 H 18 118/74 99 05/05/18 07:03 05/05/18 07:03 05/05/18 07:03 05/05/18 07:03 05/02/18 12:14 Laboratory Results - last 24 hr 05/05/18 05/05/18 05/05/18 07:00 07:00 07:00 WBC 12.4 H RBC 4.68 Hgb 12.0 Hct 37.6 MCV 80.3 MCH 25.6 MCHC 31.9 RDW 13.8 Plt Count 386 MPV 9.4 Gran % 69.1 H Lymph % (Auto) 22.7 Williamson % (Auto) 6.0 Eos % (Auto) 2.0 Baso % (Auto) 0.2 Gran # 8.56 H Lymph # (Auto) 2.8 Williamson # (Auto) 0.7 H Eos # (Auto) 0.3 Baso # (Auto) 0.02 Sodium 140 Potassium 4.3 Chloride 105 Carbon Dioxide 25 Anion Gap 15 BUN 9 Creatinine 0.6 L Est GFR ( Amer) > 60 Est GFR (Non-Af Amer) > 60 Random Glucose 105 Calcium 9.6 Total Bilirubin 0.3 AST 31 ALT 30 Alkaline Phosphatase 62 Total Protein 7.2 Albumin 4.1 Globulin 3.1 Albumin/Globulin Ratio 1.3 Mcdonald 0.6 DSM 5 Symptoms Update: Ilya Felder is a 22 yo female with developmental disability , borderline personality, hx of noncompliance, and ?schizoaffective disorder and multiple prior psych hospitalizations who presents to the ED by ambulance after running away from her retirement. The patient states that she has been very depressed and does not like living in the retirement because staff are rude and are around 24/7. She is frustrated because she would like to live somewhere with more freedom. Her plan was to go back to where she used to hang out on the streets and sell/use drugs. She ran away from the retirement 3 days prior and was brought to [facility] after being found walking on the street. She was discharged back to the retirement. She then packed her bags to run away again and her fiance called the police because he was afraid she was suicidal. She reports telling him on facebook that she was going to run away to OD on heroin to get high. While in the ED, she was screened by [facility] and [facility] and did not meet criteria for either. patient was seen and examined today in her room, as per staff pt is pleasant and very intelligent, knows all of her meds, knows her previous history, good historian. no agitation, no aggression, but at the same time pt is very intrusive, keeps coming back to the nursing station and asking multiple questions. prolactin level drawn, but no result yet. patient reported that she had history of ear infection, asked to be seen by medical team, patient reported that her stomach is still bothering her, but no vomiting, CT of abdomen no infection but cyst in ovary. pt reported her mood to be "good, I feel fine", denied any thoughts of harming self or others. patient is not responding to internal stimuli, patient is not presented to be psychotic, thought process is logical and goal directed. Patient asked about her discharge plan, patient reported that she has important appointment on Sunday "I have lump in my breast, I need to have biopsy, I do want to miss that appointment", this tag writer repeat that pt has future oriented plans, most likely pt has severe borderline personality disorder. pt was seen by medical team. so far patient tolerates medications well, no side effects observed or reported , aims 0, no EPS. Impression: Questionable history of schizophrenia Questionable history of schizoaffective disorder Questionable history of developmental disability Mood disorder NOS Severe borderline personality disorder History of PTSD. Medication Change: No (adjusted yesterday) Medical Record Reviewed: Yes Consults ordered or reviewed: medical consult appreciated Mental Status Examination - Cognitive Function Orientation: Person, Place, Situation, Time Memory: Intact Attention: Poor (improving) Concentration: Poor (improving) Association: WNL Fund of Knowledge: WNL - Mood Mood: Depressed ("I feel fine, I am good") - Affect Affect: Broad (and mood congruent) - Speech Speech: Appropriate - Formal Thought Process Formal Thought Process: Hallucinations (patient reprots hearing voices and seeing images but does not appear to be responding to internal stimuli, thought process/speech very organized) - Suicidal Ideation Suicidal Ideation: No - Homicidal Ideation Homicidal Ideation: No Goal/Treatment Plan - Goal/Treatment Plan Need for Continued Stay: Remain at risks for inpatient hospitalization, Severe depression anxiety, Discharge may exacerbated symptoms, Severe functional impairment Progress Toward Problem(s) and Goals/Treatment Plan: pt was requesting ECT, no indication agree with tx plan d/w medical team and attending. meeting with DDD worker, retirement sales representative education courses for the next week Prozac 20 mg daily for depression and anxiety Mcdonald 300 mg tid for mood stabilization, lithium level 05/05/18 0.6 Buspar d/c Gabapentin 300 mg tid for anxiety Naltrexone 50 daily for cravings Trazodone 50 mg qhs prn for depression and insomnia Thorazine 50 mg bid, qhs for psychotic symptoms Thorazine 50 mg IM qid prn for agitation/psychosis- required IM x1 05/01, PO x1 Vistaril 50 mg PO qid prn for anxiety- required x1 05/02 Benadryl 50 mg IM q6hrs prn for agitation Medicine consult for diarrhea and wrist pain- recs appreciated Milieu and group therapy SW consult for social issues and discharge planning Pt was educated about risk/benefits and alternatives of medications, coping strategies (safety plan, suicide prevention), relapse prevention, importance of follow up with psychiatrist and therapist, stay away from drugs/alcohol/smoking. Dialectical behavioral therapy recommended Estimated Date of D/C: 05/10/18
[2018-05-05 12:44] LABS: PROLACTIN 21.9 ng/mL (3.0-18.9)
--- NOTE | 2018-05-05 20:56 | CP.PCM.PN ---
<Leisa Joseph - Last Filed: 05/05/18 21:39> Subjective - Date & Time of Evaluation Date of Evaluation: 05/05/18 Time of Evaluation: 11:15 - Subjective Subjective: Leisa Joseph PGY1 - Email Production Specialist - Medicine Progress Note Patient seen and examined this AM. Patient continues to report nausea symptoms overnight. Per patient, she also reports dysuria and suprapubic tenderness bilaterally. Patient denies chest pain, shortness of breath, poor oral intake, weakness, fever, chills, diarrhea. Objective - Vital Signs/Intake and Output Vital Signs (last 24 hours): Temp Pulse Resp BP Pulse Ox 98.1 F 80 18 104/63 99 05/05/18 07:03 05/05/18 16:30 05/05/18 07:03 05/05/18 16:30 05/02/18 12:14 - Medications Medications: Current Medications Albuterol Sulfate (Albuterol 0.083% Inhal Irene (2.5 Mg/3 Ml) Ud) 2.5 mg INH Q6 PRN PRN Reason: Wheezing Calcium Carbonate (Oscal) 500 mg PO BID PRN PRN Reason: Indigestion / Heartburn Last Admin: 05/04/18 09:29 Dose: 500 mg Chlorpromazine (Thorazine) 50 mg IM Q6H PRN; Protocol PRN Reason: agitation and aggression Last Admin: 05/01/18 16:47 Dose: 50 mg Chlorpromazine (Thorazine) 50 mg PO BID [facility] PRN Reason: Protocol Last Admin: 05/05/18 17:21 Dose: 50 mg Chlorpromazine (Thorazine) 50 mg PO HS [facility] PRN Reason: Protocol Last Admin: 05/04/18 22:06 Dose: 50 mg Diphenhydramine HCl (Benadryl) 50 mg IM Q6H PRN PRN Reason: agitation/aggression Fluoxetine HCl (Prozac) 20 mg PO DAILY [facility] Last Admin: 05/05/18 09:51 Dose: 20 mg Fluticasone Propionate (Flonase) 1 actuation NS DAILY [facility] Last Admin: 05/05/18 09:55 Dose: 1 spray Gabapentin (Neurontin) 300 mg PO TID [facility] PRN Reason: Protocol Last Admin: 05/05/18 18:06 Dose: 300 mg Hydroxyzine Pamoate (Vistaril) 50 mg PO QID PRN; Protocol PRN Reason: Anxiety Last Admin: 05/05/18 09:51 Dose: 50 mg Insulin Human Regular (Humulin R Low) 0 units SC ACHS [facility] PRN Reason: Protocol Last Admin: 05/05/18 16:44 Dose: Not Given [place] Carbonate ([place] Carbonate 300mg) 300 mg PO TID [facility] Last Admin: 05/05/18 18:06 Dose: 300 mg Loratadine (Claritin) 10 mg PO DAILY PRN PRN Reason: Allergy symptoms Metformin HCl (Glucophage) 500 mg PO BID [facility] Last Admin: 05/04/18 09:29 Dose: 500 mg Multivitamins (Thera Tab) 1 tab PO DAILY [facility] Last Admin: 05/05/18 09:53 Dose: 1 tab Naltrexone HCl (Revia) 50 mg PO DAILY [facility] Last Admin: 05/05/18 09:52 Dose: 50 mg Nicotine (Nicoderm Cq) 1 patch TD DAILY [facility] Last Admin: 05/05/18 09:50 Dose: 1 patch Nitrofurantoin Macrocrystals (Macrobid) 100 mg PO Q12 [facility] PRN Reason: Protocol Last Admin: 05/05/18 18:05 Dose: 100 mg Non-Formulary Medication (Cabergoline [Cabergoline]) 0.75 mg PO TUE [facility] Cabergoline [ Cabergoline] 0.75 Mg ) 0.75 mg PO FRI [facility] Ondansetron HCl (Zofran Tab) 4 mg PO Q8H PRN PRN Reason: Nausea/Vomiting Last Admin: 05/05/18 17:48 Dose: 4 mg Pantoprazole Sodium (Protonix Ec Tab) 40 mg PO HS [facility] Last Admin: 05/04/18 22:05 Dose: 40 mg Thiamine HCl (Vitamin B1 Tab) 100 mg PO DAILY [facility] Last Admin: 05/05/18 09:50 Dose: 100 mg Trazodone HCl (Desyrel) 50 mg PO HS PRN PRN Reason: depression/insomnia Last Admin: 05/04/18 22:05 Dose: 50 mg - Labs Labs: 05/05/18 07:00 05/05/18 07:00 - Constitutional Appears: Non-toxic, No Acute Distress - Head Exam Head Exam: ATRAUMATIC, NORMAL INSPECTION, NORMOCEPHALIC - Eye Exam Eye Exam: EOMI, Normal appearance - Neck Exam Neck Exam: Normal Inspection - Respiratory Exam Respiratory Exam: NORMAL BREATHING PATTERN - Cardiovascular Exam Cardiovascular Exam: REGULAR RHYTHM - GI/Abdominal Exam GI & Abdominal Exam: Soft, Normal Bowel Sounds. absent: Tenderness - Extremities Exam Extremities Exam: Normal Inspection - Neurological Exam Neurological Exam: Alert, Awake, Normal Gait, Oriented x3 - Psychiatric Exam Psychiatric exam: Normal Affect, Normal Mood - Skin Skin Exam: Intact, Normal Color Assessment and Plan - Assessment and Plan (Free Text) Assessment: 22 year old female with past medical history of asthma, DM2, GERD who presented to [facility] with depression and suicidal ideation. Internal medicine was consulted for diarrhea and left wrist pain Abdominal discomfort associated with nausea/vomiting, improved - Afebrile, no leukocytosis, ambulating appropriately - Abdominal/Pelvis CT with PO contrast: no acute abdominal or pelvic abnormality. 4cm simple cyst in the right ovary. - LFTs wnl, passing flatus, diarrhea Asthma - Flonase - Albuterol PRN UTI - Macrobid day 4 DM2 - Metformin on hold - ISS low - ACHS Depression/Suicidal Ideation - Continue with psychiatric medications and therapy Patient was seen and plan discussed with Attending Physician, Dr. Nilton Regalado. Thank you for allowing me to participate in the care of the above named patient. Please consult again if needed. Leisa Joseph PGY1 <Jeannie Callaway R - Last Filed: 05/08/18 14:24> Objective - Vital Signs/Intake and Output Vital Signs (last 24 hours): Temp Pulse Resp BP Pulse Ox 98.1 F 71 20 94/67 L 99 05/08/18 07:30 05/08/18 07:30 05/08/18 07:30 05/08/18 07:30 05/02/18 12:14 - Medications Medications: Current Medications Albuterol Sulfate (Albuterol 0.083% Inhal Irene (2.5 Mg/3 Ml) Ud) 2.5 mg INH Q6 PRN PRN Reason: Wheezing Calcium Carbonate (Oscal) 500 mg PO BID PRN PRN Reason: Indigestion / Heartburn Last Admin: 05/04/18 09:29 Dose: 500 mg Chlorpromazine (Thorazine) 50 mg IM Q6H PRN; Protocol PRN Reason: agitation and aggression Last Admin: 05/01/18 16:47 Dose: 50 mg Chlorpromazine (Thorazine) 50 mg PO BID [facility] PRN Reason: Protocol Last Admin: 05/08/18 09:03 Dose: 50 mg Chlorpromazine (Thorazine) 100 mg PO HS [facility] PRN Reason: Protocol Last Admin: 05/07/18 21:02 Dose: 100 mg Diphenhydramine HCl (Benadryl) 50 mg IM Q6H PRN PRN Reason: agitation/aggression Fluoxetine HCl (Prozac) 40 mg PO DAILY [facility] Last Admin: 05/08/18 09:02 Dose: 40 mg Fluticasone Propionate (Flonase) 1 actuation NS DAILY [facility] Last Admin: 05/08/18 09:01 Dose: 1 spray Gabapentin (Neurontin) 300 mg PO TID [facility] PRN Reason: Protocol Last Admin: 05/08/18 12:20 Dose: 300 mg Home Med (Home Med) 2 unit PO HS [facility] Last Admin: 05/07/18 21:00 Dose: 2 unit Hydroxyzine Pamoate (Vistaril) 50 mg PO QID PRN; Protocol PRN Reason: Anxiety Last Admin: 05/08/18 12:37 Dose: 50 mg Insulin Human Regular (Humulin R Low) 0 units SC [facility] PRN Reason: Protocol Last Admin: 05/08/18 12:17 Dose: Not Given [place] Carbonate ([place] Carbonate 300mg) 600 mg PO BID [facility] Last Admin: 05/08/18 09:03 Dose: 600 mg Loratadine (Claritin) 10 mg PO DAILY PRN PRN Reason: Allergy symptoms Metformin HCl (Glucophage) 500 mg PO BID [facility] Last Admin: 05/04/18 09:29 Dose: 500 mg Multivitamins (Thera Tab) 1 tab PO DAILY [facility] Last Admin: 05/08/18 09:03 Dose: 1 tab Naltrexone HCl (Revia) 50 mg PO DAILY [facility] Last Admin: 05/08/18 09:04 Dose: 50 mg Nicotine (Nicoderm Cq) 1 patch TD DAILY [facility] Last Admin: 05/08/18 09:27 Dose: 1 patch Cabergoline [ (Cabergoline] 0.75 Mg) 0.75 mg PO TUE [facility] Cabergoline [ Cabergoline] 0.75 Mg ) 0.75 mg PO FRI [facility] Ondansetron HCl (Zofran Tab) 4 mg PO Q8H PRN PRN Reason: Nausea/Vomiting Last Admin: 05/05/18 17:48 Dose: 4 mg Pantoprazole Sodium (Protonix Ec Tab) 40 mg PO HS [facility] Last Admin: 05/07/18 21:03 Dose: 40 mg Thiamine HCl (Vitamin B1 Tab) 100 mg PO DAILY [facility] Last Admin: 05/08/18 09:02 Dose: 100 mg - Labs Labs: 05/05/18 07:00 05/05/18 07:00 Attending/Attestation - Attestation I have personally seen and examined this patient.: Yes I have fully participated in the care of the patient.: Yes I have reviewed all pertinent clinical information, including history, physical exam and plan: Yes Notes (Text): Patient seen and examined by me at 10:05AM with resident 05/05/18. Case including HPI, physical exam, and physical assessment and plan discussed with resident. Agree with above with following additions/corrections. Patient states she is feeling better. Abdominal pain improved. States her bowel movements are no longer watery but they are "soft." No more nausea or vomiting. Left wrist pain resolved. No fevers or chills. No headaches or dizziness. No chest pain or shortness of breath. No dysuria today. No neck pain or back pain. Physical exam: Gen: Awake and alert sitting up in bed in no acute distress HEENT: Normocephalic atraumatic. Extraocular muscles intact, pupils equal reactive. No scleral icterus. Oropharynx is pink and moist, no pharyngeal erythema or exudate appreciated. Neck is supple. Cardiovascular: Normal rhythm, normal S1-S2. No murmurs, rubs, or gallops appreciated Pulmonary: Normal respiratory effort. No rhonchi, rales or wheezing appreciated. Gastrointestinal: Soft, nontender, nondistended, positive bowel sounds all 4 quadrants, no guarding Musculoskeletal: Normal range of motion all extremities, no calf tenderness, no CVA tenderness Vascular: 2+ peripheral pulses upper and lower extremities Central nervous system: AAO 3. Cranial nerves 2 -12 grossly intact. 5 out of 5 muscle strength all extremities. Sensation intact. Good hepatologist strength bilaterally Dermatologic: Skin warm and dry Assessment and plan: Patient is a 22-year-old female with past medical history significant for type 2 diabetes, asthma, GERD, and seasonal allergies that presented with depression and suicidal ideation. We are consulted for diarrhea and left wrist pain. 1. Diarrhea. Resolved CT abdomen and pelvis per radiologist shows no acute abdominal or pelvic abnormality, 4.0cm simple cyst in the right ovary. Patient to follow up outpatient with operations and intelligence assistant for cyst. 2. Leukocytosis. Likely reactive. Improving. Afebrile. No indication for antibiotics. 3. Abnormal urinalysis. Urine culture positive for gram-negative rods, less than 10,000 CFU. Patient has been on Macrobid. Complete Macrobid course. 4. Left wrist pain. resolved. X-ray shows no fractures. 5. History of asthma, seasonal allergies. Not in acute exacerbation. Continue albuterol as needed. Continue with Flonase 6. Type 2 diabetes. Continue metformin. Monitor Accu-Cheks. 7. Depression and suicidal ideation. Care as per primary team Case was discussed in detail with the patient, psychiatrist, and medical records specialist regarding current diagnosis and treatment plan. Patient is doing better. We will sign off. Please reconsult if needed. Thank you.
[2018-05-05] MEDS: Pantoprazole 40 mg EC Tab PO SCH (21:14)
[2018-05-06 07:18] VITALS: RESP 20
[2018-05-06] MEDS: Insulin Reg-LOW-Coverage SC SCH ×4 (08:00→21:16)
[2018-05-06] MEDS: Multivitamin Therapeutic Tab PO SCH (08:58)
[2018-05-06] MEDS: Fluticasone Nasal 50 mcg/Spray NS SCH (09:35)
--- NOTE | 2018-05-06 13:28 | PCM.PYCHPN ---
Psychiatric Progress Note - Psychiatric Progress Note Patient seen today, length of contact: 30min Patient Chief Complaint: "my plans have changed, I spoke to my mother and she advised me to stay in the hospital for three months till my DDD worker will find me the new half-way, meanwhile I will stay in the critical access hospital [facility] for example [facility], I think it is a very good plan, by the way my mother is my legal guardian, I know I lied, she is the one making decisions, my mother and my fiance do not want me to go back to the half-way where I am now". Problems Identified/Issues Discussed: Suicide/ homicide prevention, past psychiatric h/o, current psychiatric symptoms , medical problems, risk/benefits and alternatives of medications, medications compliance, coping strategies, substance abuse h/o, relapse prevention, importance of follow up with psychiatrist and therapist, discharge plan. Medical Problems: multiple medical issues please see medical note for more detailed info Diagnostic Results: 05/04/18 07:00 05/04/18 07:00 Lab Results 05/04/18 07:29: POC Glucose (mg/dL) 98 05/04/18 07:00: Sodium 140, Potassium 4.3, Chloride 102, Carbon Dioxide 28, Anion Gap 14, BUN 7, Creatinine 0.6 L, Est GFR ( Amer) > 60, Est GFR (Non -Af Amer) > 60, Random Glucose 108, Calcium 9.5, Total Bilirubin 0.4, AST 25, ALT 35, Alkaline Phosphatase 60, Total Protein 7.4, Albumin 4.1, Globulin 3.3, Albumin/Globulin Ratio 1.3 05/04/18 07:00: WBC 14.2 H, RBC 4.74, Hgb 12.4, Hct 38.1, MCV 80.4, MCH 26.2, MCHC 32.5, RDW 13.7, Plt Count 406, MPV 9.4, Gran % 68.2 H, Lymph % (Auto) 23.9 , [place] % (Auto) 5.6, Eos % (Auto) 2.1, Baso % (Auto) 0.2, Gran # 9.70 H, Lymph # (Auto) 3.4, Douglas # (Auto) 0.8 H, Eos # (Auto) 0.3, Baso # (Auto) 0.03 05/03/18 21:12: POC Glucose (mg/dL) 109 05/03/18 16:07: POC Glucose (mg/dL) 121 H 05/03/18 11:57: POC Glucose (mg/dL) 74 05/03/18 07:42: POC Glucose (mg/dL) 98 05/03/18 07:30: RPR Nonreactive 05/03/18 07:30: Triglycerides 198 H, Cholesterol 167, LDL Cholesterol Direct 101 , HDL Cholesterol 38 05/02/18 21:13: POC Glucose (mg/dL) 129 H 05/02/18 16:19: POC Glucose (mg/dL) 82 05/02/18 08:02: POC Glucose (mg/dL) 95 05/01/18 09:13: POC Glucose (mg/dL) 106 05/01/18 00:25: POC Glucose (mg/dL) 82 04/30/18 22:57: Alcohol, Quantitative < 10 04/30/18 22:57: Salicylates < 1 L, Acetaminophen < 10.0 L 04/30/18 22:57: Sodium 142, Potassium 3.9, Chloride 106, Carbon Dioxide 24, Anion Gap 16, BUN 7, Creatinine 0.6 L, Est GFR ( Amer) > 60, Est GFR (Non -Af Amer) > 60, Random Glucose 90, Calcium 9.9, Total Bilirubin 0.2, AST 35, ALT 39, Alkaline Phosphatase 60, Total Protein 7.6, Albumin 4.4, Globulin 3.2, Albumin/Globulin Ratio 1.4 04/30/18 22:57: WBC 13.9 H, RBC 4.62, Hgb 12.0, Hct 36.6, MCV 79.2 L, MCH 26.0, MCHC 32.8, RDW 13.8, Plt Count 462 H, MPV 9.4, Gran % 69.5 H, Lymph % (Auto) 23.7, Douglas % (Auto) 5.4, Eos % (Auto) 1.3 L, Baso % (Auto) 0.1, Gran # 9.68 H, Lymph # (Auto) 3.3, Douglas # (Auto) 0.8 H, Eos # (Auto) 0.2, Baso # (Auto) 0.02 04/30/18 22:44: Urine Opiates Screen Negative, Urine Methadone Screen Negative, Ur Barbiturates Screen Negative, Ur Phencyclidine Scrn Negative, Ur Amphetamines Screen Negative, U Benzodiazepines Scrn Negative, U Oth Cocaine Metabols Negative, U Cannabinoids Screen Negative 04/30/18 22:44: Urine Color Yellow, Urine Appearance Clear, Urine pH 6.0, Ur Specific [place] 1.020, Urine Protein Negative, Urine Glucose (UA) Negative, Urine Ketones Negative, Urine Blood Negative, Urine Nitrate Negative, Urine Bilirubin Negative, Urine Urobilinogen 0.2, Ur Leukocyte Esterase Trace H, Urine RBC Negative, Urine WBC 0 - 2, Ur Epithelial Cells 0 - 2, Urine Bacteria None Vital Signs Temp Pulse Pulse Resp BP Pulse Ox 05/04/18 07:19 97.7 F 65 20 103/68 05/03/18 15:54 88 123/80 05/03/18 07:17 97.7 F 63 18 110/68 05/02/18 15:39 75 17 05/02/18 12:14 78 18 99 05/02/18 11:40 97.3 F L 73 18 108/69 99 05/02/18 10:15 88 18 110/69 99 05/02/18 08:01 97.1 F L 64 16 93/61 L 98 05/02/18 05:00 74 16 110/68 97 05/02/18 01:00 77 16 118/70 97 05/01/18 21:00 84 16 115/68 98 05/01/18 19:15 98.4 F 66 17 102/67 97 05/01/18 16:11 80 16 136/82 99 05/01/18 14:11 83 16 122/86 99 05/01/18 12:10 88 16 99 05/01/18 10:09 88 16 120/82 99 05/01/18 08:08 88 16 120/78 99 05/01/18 05:14 98.1 F 90 18 117/80 98 05/01/18 00:30 98.5 F 71 18 112/78 98 04/30/18 22:43 97.4 F L 74 18 115/82 98 Temp Pulse Resp BP Pulse Ox 98.1 F 94 H 18 118/74 99 05/05/18 07:03 05/05/18 07:03 05/05/18 07:03 05/05/18 07:03 05/02/18 12:14 Laboratory Results - last 24 hr 05/05/18 05/05/18 05/05/18 07:00 07:00 07:00 WBC 12.4 H RBC 4.68 Hgb 12.0 Hct 37.6 MCV 80.3 MCH 25.6 MCHC 31.9 RDW 13.8 Plt Count 386 MPV 9.4 Gran % 69.1 H Lymph % (Auto) 22.7 Douglas % (Auto) 6.0 Eos % (Auto) 2.0 Baso % (Auto) 0.2 Gran # 8.56 H Lymph # (Auto) 2.8 Douglas # (Auto) 0.7 H Eos # (Auto) 0.3 Baso # (Auto) 0.02 Sodium 140 Potassium 4.3 Chloride 105 Carbon Dioxide 25 Anion Gap 15 BUN 9 Creatinine 0.6 L Est GFR ( Amer) > 60 Est GFR (Non-Af Amer) > 60 Random Glucose 105 Calcium 9.6 Total Bilirubin 0.3 AST 31 ALT 30 Alkaline Phosphatase 62 Total Protein 7.2 Albumin 4.1 Globulin 3.1 Albumin/Globulin Ratio 1.3 [place] 0.6 Laboratory Results - last 24 hr 05/04/18 05/04/18 05/04/18 11:18 16:11 21:11 POC Glucose (mg/dL) 89 115 H 111 H Laboratory Results - last 72 hr 05/03/18 05/03/18 05/03/18 07:30 16:07 21:12 WBC RBC Hgb Hct MCV MCH MCHC RDW Plt Count MPV Gran % Lymph % (Auto) Douglas % (Auto) Eos % (Auto) Baso % (Auto) Gran # Lymph # (Auto) Douglas # (Auto) Eos # (Auto) Baso # (Auto) Sodium Potassium Chloride Carbon Dioxide Anion Gap BUN Creatinine Est GFR ( Amer) Est GFR (Non-Af Amer) POC Glucose (mg/dL) 121 H 109 Random Glucose Calcium Total Bilirubin AST ALT Alkaline Phosphatase Total Protein Albumin Globulin Albumin/Globulin Ratio Prolactin [place] RPR Nonreactive 05/04/18 05/04/18 05/04/18 07:00 07:00 07:29 WBC 14.2 H RBC 4.74 Hgb 12.4 Hct 38.1 MCV 80.4 MCH 26.2 MCHC 32.5 RDW 13.7 Plt Count 406 MPV 9.4 Gran % 68.2 H Lymph % (Auto) 23.9 Douglas % (Auto) 5.6 Eos % (Auto) 2.1 Baso % (Auto) 0.2 Gran # 9.70 H Lymph # (Auto) 3.4 Douglas # (Auto) 0.8 H Eos # (Auto) 0.3 Baso # (Auto) 0.03 Sodium 140 Potassium 4.3 Chloride 102 Carbon Dioxide 28 Anion Gap 14 BUN 7 Creatinine 0.6 L Est GFR ( Amer) > 60 Est GFR (Non-Af Amer) > 60 POC Glucose (mg/dL) 98 Random Glucose 108 Calcium 9.5 Total Bilirubin 0.4 AST 25 ALT 35 Alkaline Phosphatase 60 Total Protein 7.4 Albumin 4.1 Globulin 3.3 Albumin/Globulin Ratio 1.3 Prolactin [place] RPR 05/04/18 05/04/18 05/04/18 11:18 16:11 21:11 WBC RBC Hgb Hct MCV MCH MCHC RDW Plt Count MPV Gran % Lymph % (Auto) [place] % (Auto) Eos % (Auto) Baso % (Auto) Gran # Lymph # (Auto) [place] # (Auto) Eos # (Auto) Baso # (Auto) Sodium Potassium Chloride Carbon Dioxide Anion Gap BUN Creatinine Est GFR ( Amer) Est GFR (Non-Af Amer) POC Glucose (mg/dL) 89 115 H 111 H Random Glucose Calcium Total Bilirubin AST ALT Alkaline Phosphatase Total Protein Albumin Globulin Albumin/Globulin Ratio Prolactin [place] RPR 05/05/18 05/05/18 05/05/18 07:00 07:00 07:00 WBC 12.4 H RBC 4.68 Hgb 12.0 Hct 37.6 MCV 80.3 MCH 25.6 MCHC 31.9 RDW 13.8 Plt Count 386 MPV 9.4 Gran % 69.1 H Lymph % (Auto) 22.7 Douglas % (Auto) 6.0 Eos % (Auto) 2.0 Baso % (Auto) 0.2 Gran # 8.56 H Lymph # (Auto) 2.8 Douglas # (Auto) 0.7 H Eos # (Auto) 0.3 Baso # (Auto) 0.02 Sodium 140 Potassium 4.3 Chloride 105 Carbon Dioxide 25 Anion Gap 15 BUN 9 Creatinine 0.6 L Est GFR ( Amer) > 60 Est GFR (Non-Af Amer) > 60 POC Glucose (mg/dL) Random Glucose 105 Calcium 9.6 Total Bilirubin 0.3 AST 31 ALT 30 Alkaline Phosphatase 62 Total Protein 7.2 Albumin 4.1 Globulin 3.1 Albumin/Globulin Ratio 1.3 Prolactin 21.9 H [place] 0.6 RPR DSM 5 Symptoms Update: Ilya Felder is a 22 yo female with developmental disability , borderline personality, hx of noncompliance, and ?schizoaffective disorder and multiple prior psych hospitalizations who presents to the ED by ambulance after running away from her half-way. The patient states that she has been very depressed and does not like living in the half-way because staff are rude and are around 07/05. She is frustrated because she would like to live somewhere with more freedom. Her plan was to go back to where she used to hang out on the streets and sell/use drugs. She ran away from the half-way 3 days prior and was brought to [facility] after being found walking on the street. She was discharged back to the half-way. She then packed her bags to run away again and her fiance called the police because he was afraid she was suicidal. She reports telling him on facebook that she was going to run away to OD on heroin to get high. While in the ED, she was screened by [facility] and [facility] and did not meet criteria for either. pt was observed in the psychiatric inpatient unit since 05/02/18, pt has strong borderline personality traits, splitting staff, attention seeking behavior, at the same time pt had no aggression/no agitation/seems to be very concerned about her physical health, was keep asking to see medical doctors, had good appetite and sleep, pt does not appear to be psychotic, does not appear to be paranoid, does not appear to be internally preoccupied, but keep repeating that she hears voices and expressed conditional suicidal ideation (pt does not want to go to the half-way where she came from, threatening to harm self if she will be d/c there), all the above gives this technical report writer impression that Ilya is not truly suicidal but manipulative and wants what she feels is right for her. In regards of depressive symptoms, pt does not appear to be depressed, has full range of affect, attends all groups, smiling and dancing and does not appear to be depressed or hopeless, pt appears to have good energy level, pt is always in community area, socializing with others. In regards of anxiety and PTSD, pt does not appear to be anxious, sleeps through the night, does not appear to have any nightmares or any distress. In regards of impulsivity, over this weekend other pt Wilda Laboy who was antagonizing Ilya and making comments about pt's appearance (staff intervene immediately ) but Ilya was in good behavioral control, was walking away from the conflict, asked staff for help which gives this technical report writer impression that pt was able to control herself and did not react on offensive statements. pt was seen today at the treatment team meeting room with SW, staff, medical student and manager international. pt presented in good personal hygiene, was calm, pt stated "my plans have changed, I spoke to my mother and she advised me to stay in the hospital for three months till my DDD worker will find me the new half-way, meanwhile I will stay in the [facility] example [facility] or [facility], I think it is a very good plan, by the way my mother is my legal guardian, I know I lied, she is the one making decisions, my mother and my fiance do not want me to go back to the half-way where I am now". As per DDD worker pt does not have legal guardian, does not have POA, pt making her own decisions, pt gave permission to speak to her mother Carrie Lagos [phone], SW advised to call pt's mother and request legal documents. pt was seen by medical team. so far patient tolerates medications well, no side effects observed or reported , aims 0, no EPS. Impression: Questionable history of schizophrenia Questionable history of schizoaffective disorder Questionable history of developmental disability Mood disorder NOS Severe borderline personality disorder History of PTSD. Medication Change: No Medical Record Reviewed: Yes Consults ordered or reviewed: medical consult appreciated prolactin is mildly elevated, pt said that she is on medications for that, was advised to call her nursing home and asked to bring meds, if not will consider to start abilify. Mental Status Examination - Cognitive Function Orientation: Person, Place, Situation, Time Memory: Intact Attention: Poor (improving) Concentration: Poor (improving) Association: WNL Fund of Knowledge: WNL - Mood Mood: Depressed ("I feel depressed") - Affect Affect: Broad (and mood incongruent) - Speech Speech: Appropriate - Formal Thought Process Formal Thought Process: Hallucinations (patient reprots hearing voices and seeing images but does not appear to be responding to internal stimuli, thought process/speech very organized) - Suicidal Ideation Suicidal Ideation: No Plan: pt is conditionally suicidal, threatening if she will be d/c to her half-way she might harm self, but pt does not appear to be depressed. - Homicidal Ideation Homicidal Ideation: No Goal/Treatment Plan - Goal/Treatment Plan Need for Continued Stay: Remain at risks for inpatient hospitalization, Severe depression anxiety, Discharge may exacerbated symptoms, Severe functional impairment Progress Toward Problem(s) and Goals/Treatment Plan: pt was requesting ECT, no indication agree with tx plan d/w medical team and attending. meeting with DDD worker, half-way retail account representative for the next week Prozac 20 mg daily for depression and anxiety [place] 300 mg tid for mood stabilization, lithium level 05/05/18 0.6 Buspar d/c Gabapentin 300 mg tid for anxiety Naltrexone 50 daily for cravings Trazodone 50 mg qhs prn for depression and insomnia Thorazine 50 mg bid, qhs for psychotic symptoms Thorazine 50 mg IM qid prn for agitation/psychosis- required IM x1 05/01, PO x1 Vistaril 50 mg PO qid prn for anxiety- required x1 05/02 Benadryl 50 mg IM q6hrs prn for agitation Medicine consult for diarrhea and wrist pain- recs appreciated Milieu and group therapy consult for social issues and discharge planning Pt was educated about risk/benefits and alternatives of medications, coping strategies (safety plan, suicide prevention), relapse prevention, importance of follow up with psychiatrist and therapist, stay away from drugs/alcohol/smoking. Dialectical behavioral therapy recommended prolactin elevated, pt was on dpoamin therapy, pt was advised to call her half-way to bring the meds. Estimated Date of D/C: 05/10/18
[2018-05-06] MEDS: Pantoprazole 40 mg EC Tab PO SCH (21:15)
[2018-05-07] MEDS: Insulin Reg-LOW-Coverage SC SCH ×4 (09:12→21:45)
[2018-05-07] MEDS: Multivitamin Therapeutic Tab PO SCH (09:23)
[2018-05-07] MEDS: Fluticasone Nasal 50 mcg/Spray NS SCH (09:37)
[2018-05-07] MEDS ORDERED: CABERGOLINE PO SCH (10:00)
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
[2018-05-07] MEDS: PRAZOSIN 1 MG PO SCH (21:00)
[2018-05-07] MEDS: Pantoprazole 40 mg EC Tab PO SCH (21:03)
[2018-05-08] MEDS: Insulin Reg-LOW-Coverage SC SCH ×4 (08:00→21:18)
[2018-05-08] MEDS: Fluticasone Nasal 50 mcg/Spray NS SCH (09:01)
[2018-05-08] MEDS: Multivitamin Therapeutic Tab PO SCH (09:03)
--- NOTE | 2018-05-08 15:11 | PCM.PYCHPN ---
Psychiatric Progress Note - Psychiatric Progress Note Patient seen today, length of contact: 30min Patient Chief Complaint: "I do not want to go to the penitentiary, you need to find me a place, I cannot go to a group home, I cannot go on streets, I need to have independence" Problems Identified/Issues Discussed: Suicide/ homicide prevention, past psychiatric h/o, current psychiatric symptoms , medical problems, risk/benefits and alternatives of medications, medications compliance, coping strategies, substance abuse h/o, relapse prevention, importance of follow up with psychiatrist and therapist, discharge plan. Medical Problems: multiple medical issues please see medical note for more detailed info Diagnostic Results: 05/04/18 07:00 05/04/18 07:00 Lab Results 05/04/18 07:29: POC Glucose (mg/dL) 98 05/04/18 07:00: Sodium 140, Potassium 4.3, Chloride 102, Carbon Dioxide 28, Anion Gap 14, BUN 7, Creatinine 0.6 L, Est GFR ( Amer) > 60, Est GFR (Non -Af Amer) > 60, Random Glucose 108, Calcium 9.5, Total Bilirubin 0.4, AST 25, ALT 35, Alkaline Phosphatase 60, Total Protein 7.4, Albumin 4.1, Globulin 3.3, Albumin/Globulin Ratio 1.3 05/04/18 07:00: WBC 14.2 H, RBC 4.74, Hgb 12.4, Hct 38.1, MCV 80.4, MCH 26.2, MCHC 32.5, RDW 13.7, Plt Count 406, MPV 9.4, Gran % 68.2 H, Lymph % (Auto) 23.9 , [place] % (Auto) 5.6, Eos % (Auto) 2.1, Baso % (Auto) 0.2, Gran # 9.70 H, Lymph # (Auto) 3.4, [place] # (Auto) 0.8 H, Eos # (Auto) 0.3, Baso # (Auto) 0.03 05/03/18 21:12: POC Glucose (mg/dL) 109 05/03/18 16:07: POC Glucose (mg/dL) 121 H 05/03/18 11:57: POC Glucose (mg/dL) 74 05/03/18 07:42: POC Glucose (mg/dL) 98 05/03/18 07:30: RPR Nonreactive 05/03/18 07:30: Triglycerides 198 H, Cholesterol 167, LDL Cholesterol Direct 101 , HDL Cholesterol 38 05/02/18 21:13: POC Glucose (mg/dL) 129 H 05/02/18 16:19: POC Glucose (mg/dL) 82 05/02/18 08:02: POC Glucose (mg/dL) 95 05/01/18 09:13: POC Glucose (mg/dL) 106 05/01/18 00:25: POC Glucose (mg/dL) 82 04/30/18 22:57: Alcohol, Quantitative < 10 04/30/18 22:57: Salicylates < 1 L, Acetaminophen < 10.0 L 04/30/18 22:57: Sodium 142, Potassium 3.9, Chloride 106, Carbon Dioxide 24, Anion Gap 16, BUN 7, Creatinine 0.6 L, Est GFR ( Amer) > 60, Est GFR (Non -Af Amer) > 60, Random Glucose 90, Calcium 9.9, Total Bilirubin 0.2, AST 35, ALT 39, Alkaline Phosphatase 60, Total Protein 7.6, Albumin 4.4, Globulin 3.2, Albumin/Globulin Ratio 1.4 04/30/18 22:57: WBC 13.9 H, RBC 4.62, Hgb 12.0, Hct 36.6, MCV 79.2 L, MCH 26.0, MCHC 32.8, RDW 13.8, Plt Count 462 H, MPV 9.4, Gran % 69.5 H, Lymph % (Auto) 23.7, [place] % (Auto) 5.4, Eos % (Auto) 1.3 L, Baso % (Auto) 0.1, Gran # 9.68 H, Lymph # (Auto) 3.3, [place] # (Auto) 0.8 H, Eos # (Auto) 0.2, Baso # (Auto) 0.02 04/30/18 22:44: Urine Opiates Screen Negative, Urine Methadone Screen Negative, Ur Barbiturates Screen Negative, Ur Phencyclidine Scrn Negative, Ur Amphetamines Screen Negative, U Benzodiazepines Scrn Negative, U Oth Cocaine Metabols Negative, U Cannabinoids Screen Negative 04/30/18 22:44: Urine Color Yellow, Urine Appearance Clear, Urine pH 6.0, Ur Specific Wheeler 1.020, Urine Protein Negative, Urine Glucose (UA) Negative, Urine Ketones Negative, Urine Blood Negative, Urine Nitrate Negative, Urine Bilirubin Negative, Urine Urobilinogen 0.2, Ur Leukocyte Esterase Trace H, Urine RBC Negative, Urine WBC 0 - 2, Ur Epithelial Cells 0 - 2, Urine Bacteria None Vital Signs Temp Pulse Pulse Resp BP Pulse Ox 05/04/18 07:19 97.7 F 65 20 103/68 05/03/18 15:54 88 123/80 05/03/18 07:17 97.7 F 63 18 110/68 05/02/18 15:39 75 17 05/02/18 12:14 78 18 99 05/02/18 11:40 97.3 F L 73 18 108/69 99 05/02/18 10:15 88 18 110/69 99 05/02/18 08:01 97.1 F L 64 16 93/61 L 98 05/02/18 05:00 74 16 110/68 97 05/02/18 01:00 77 16 118/70 97 05/01/18 21:00 84 16 115/68 98 05/01/18 19:15 98.4 F 66 17 102/67 97 05/01/18 16:11 80 16 136/82 99 05/01/18 14:11 83 16 122/86 99 05/01/18 12:10 88 16 99 05/01/18 10:09 88 16 120/82 99 05/01/18 08:08 88 16 120/78 99 05/01/18 05:14 98.1 F 90 18 117/80 98 05/01/18 00:30 98.5 F 71 18 112/78 98 04/30/18 22:43 97.4 F L 74 18 115/82 98 Temp Pulse Resp BP Pulse Ox 98.1 F 94 H 18 118/74 99 05/05/18 07:03 05/05/18 07:03 05/05/18 07:03 05/05/18 07:03 05/02/18 12:14 Laboratory Results - last 24 hr 05/05/18 05/05/18 05/05/18 07:00 07:00 07:00 WBC 12.4 H RBC 4.68 Hgb 12.0 Hct 37.6 MCV 80.3 MCH 25.6 MCHC 31.9 RDW 13.8 Plt Count 386 MPV 9.4 Gran % 69.1 H Lymph % (Auto) 22.7 [place] % (Auto) 6.0 Eos % (Auto) 2.0 Baso % (Auto) 0.2 Gran # 8.56 H Lymph # (Auto) 2.8 [place] # (Auto) 0.7 H Eos # (Auto) 0.3 Baso # (Auto) 0.02 Sodium 140 Potassium 4.3 Chloride 105 Carbon Dioxide 25 Anion Gap 15 BUN 9 Creatinine 0.6 L Est GFR ( Amer) > 60 Est GFR (Non-Af Amer) > 60 Random Glucose 105 Calcium 9.6 Total Bilirubin 0.3 AST 31 ALT 30 Alkaline Phosphatase 62 Total Protein 7.2 Albumin 4.1 Globulin 3.1 Albumin/Globulin Ratio 1.3 [place] 0.6 Laboratory Results - last 24 hr 05/04/18 05/04/18 05/04/18 11:18 16:11 21:11 POC Glucose (mg/dL) 89 115 H 111 H Laboratory Results - last 72 hr 05/03/18 05/03/18 05/03/18 07:30 16:07 21:12 WBC RBC Hgb Hct MCV MCH MCHC RDW Plt Count MPV Gran % Lymph % (Auto) [place] % (Auto) Eos % (Auto) Baso % (Auto) Gran # Lymph # (Auto) [place] # (Auto) Eos # (Auto) Baso # (Auto) Sodium Potassium Chloride Carbon Dioxide Anion Gap BUN Creatinine Est GFR ( Amer) Est GFR (Non-Af Amer) POC Glucose (mg/dL) 121 H 109 Random Glucose Calcium Total Bilirubin AST ALT Alkaline Phosphatase Total Protein Albumin Globulin Albumin/Globulin Ratio Prolactin [place] RPR Nonreactive 05/04/18 05/04/18 05/04/18 07:00 07:00 07:29 WBC 14.2 H RBC 4.74 Hgb 12.4 Hct 38.1 MCV 80.4 MCH 26.2 MCHC 32.5 RDW 13.7 Plt Count 406 MPV 9.4 Gran % 68.2 H Lymph % (Auto) 23.9 [place] % (Auto) 5.6 Eos % (Auto) 2.1 Baso % (Auto) 0.2 Gran # 9.70 H Lymph # (Auto) 3.4 [place] # (Auto) 0.8 H Eos # (Auto) 0.3 Baso # (Auto) 0.03 Sodium 140 Potassium 4.3 Chloride 102 Carbon Dioxide 28 Anion Gap 14 BUN 7 Creatinine 0.6 L Est GFR ( Amer) > 60 Est GFR (Non-Af Amer) > 60 POC Glucose (mg/dL) 98 Random Glucose 108 Calcium 9.5 Total Bilirubin 0.4 AST 25 ALT 35 Alkaline Phosphatase 60 Total Protein 7.4 Albumin 4.1 Globulin 3.3 Albumin/Globulin Ratio 1.3 Prolactin [place] RPR 05/04/18 05/04/18 05/04/18 11:18 16:11 21:11 WBC RBC Hgb Hct MCV MCH MCHC RDW Plt Count MPV Gran % Lymph % (Auto) [place] % (Auto) Eos % (Auto) Baso % (Auto) Gran # Lymph # (Auto) [place] # (Auto) Eos # (Auto) Baso # (Auto) Sodium Potassium Chloride Carbon Dioxide Anion Gap BUN Creatinine Est GFR ( Amer) Est GFR (Non-Af Amer) POC Glucose (mg/dL) 89 115 H 111 H Random Glucose Calcium Total Bilirubin AST ALT Alkaline Phosphatase Total Protein Albumin Globulin Albumin/Globulin Ratio Prolactin [place] RPR 05/05/18 05/05/18 05/05/18 07:00 07:00 07:00 WBC 12.4 H RBC 4.68 Hgb 12.0 Hct 37.6 MCV 80.3 MCH 25.6 MCHC 31.9 RDW 13.8 Plt Count 386 MPV 9.4 Gran % 69.1 H Lymph % (Auto) 22.7 [place] % (Auto) 6.0 Eos % (Auto) 2.0 Baso % (Auto) 0.2 Gran # 8.56 H Lymph # (Auto) 2.8 [place] # (Auto) 0.7 H Eos # (Auto) 0.3 Baso # (Auto) 0.02 Sodium 140 Potassium 4.3 Chloride 105 Carbon Dioxide 25 Anion Gap 15 BUN 9 Creatinine 0.6 L Est GFR ( Amer) > 60 Est GFR (Non-Af Amer) > 60 POC Glucose (mg/dL) Random Glucose 105 Calcium 9.6 Total Bilirubin 0.3 AST 31 ALT 30 Alkaline Phosphatase 62 Total Protein 7.2 Albumin 4.1 Globulin 3.1 Albumin/Globulin Ratio 1.3 Prolactin 21.9 H [place] 0.6 RPR DSM 5 Symptoms Update: Shamecca Felder is a 22 yo female with developmental disability , borderline personality, hx of noncompliance, and ?schizoaffective disorder and multiple prior psych hospitalizations who presents to the ED by ambulance after [facility] away from her [facility]. The patient states that she has been very depressed and does not like living in the penitentiary because staff are rude and are around 24/7. She is frustrated because she would like to live somewhere with more freedom. Her plan was to go back to where she used to hang out on the streets and sell/use drugs. She ran away from the penitentiary 3 days prior and was brought to [facility] after being found walking on the street. She was discharged back to the penitentiary. She then packed her bags to run away again and her fiance called the police because he was afraid she was suicidal. She reports telling him on facebook that she was going to run away to OD on heroin to get high. While in the ED, she was screened by [facility] and [facility] and did not meet criteria for either. pt was observed in the psychiatric inpatient unit since 05/02/18, pt has strong borderline personality traits, splitting staff, attention seeking behavior, at the same time pt had no aggression/no agitation. pt knows the system very well, pt has unrealistic d/c plans and expectations. today spoke to pt's mother over the phone with SW d/c plan was discussed, mother agreed with penitentiary d/c plan, was appreciative pt was seen at tx team meeting room, pt dissatisfied with d/c plan, keep repeating that she needs to go to the [facility] and she will not go to her penitentiary. eventually signed 48 hr notice, requesting d/c today pt has strong borderline personality traits, demanding. pt does not appear to be psychotic pt does not appear to be depressed pt does not appear to be anxious participating in all groups, pt's affect is reactive, pt able to expressed her needs. so far patient tolerates medications well, no side effects observed or reported , aims 0, no EPS. anticipating meeting with [facility] and penitentiary tomorrow Impression: Questionable history of schizophrenia Questionable history of schizoaffective disorder Questionable history of developmental disability Mood disorder NOS Severe borderline personality disorder History of PTSD. Medication Change: Yes (thorazine, lithium increasd, prazosin resumed, trazodone d/c) Medical Record Reviewed: Yes Mental Status Examination - Cognitive Function Orientation: Person, Place, Situation, Time Memory: Intact Attention: Poor (improving) Concentration: Poor (improving) Association: WNL Fund of Knowledge: WNL - Mood Mood: Depressed ("I feel depressed") - Affect Affect: Broad - Speech Speech: Appropriate - Formal Thought Process Formal Thought Process: Hallucinations (patient reprots hearing voices and seeing images but does not appear to be responding to internal stimuli, thought process/speech very organized) - Suicidal Ideation Suicidal Ideation: No - Homicidal Ideation Homicidal Ideation: No Goal/Treatment Plan - Goal/Treatment Plan Need for Continued Stay: Remain at risks for inpatient hospitalization, Severe depression anxiety, Discharge may exacerbated symptoms, Severe functional impairment Progress Toward Problem(s) and Goals/Treatment Plan: pt was requesting ECT, no indication agree with tx plan d/w medical team and attending. meeting with DDD worker, penitentiary telephone sales representative for the next week Prozac 40 mg daily for depression and anxiety [place] 600 mg bid for mood stabilization, lithium level 05/05/18 0.6 Buspar d/c Gabapentin 300 mg tid for anxiety Naltrexone 50 daily for cravings Trazodone 50 mg qhs prn for depression and insomnia Thorazine 50 mg bid, 100qhs for psychotic symptoms Thorazine 50 mg IM qid prn for agitation/psychosis- required IM x1 05/01, PO x1 Vistaril 50 mg PO qid prn for anxiety- required x1 05/02 Benadryl 50 mg IM q6hrs prn for agitation Medicine consult for diarrhea and wrist pain- recs appreciated Milieu and group therapy consult for social issues and discharge planning Pt was educated about risk/benefits and alternatives of medications, coping strategies (safety plan, suicide prevention), relapse prevention, importance of follow up with psychiatrist and therapist, stay away from drugs/alcohol/smoking. Dialectical behavioral therapy recommended prolactin elevated, pt was on dpoamin therapy, pt was advised to call her penitentiary to bring the meds. Estimated Date of D/C: 05/10/18
[2018-05-08] MEDS: Pantoprazole 40 mg EC Tab PO SCH (21:09)
[2018-05-08] MEDS: PRAZOSIN 1 MG PO SCH (21:09)
[2018-05-09 07:01] VITALS: BP 110/70; PULSE 73; TEMP 98
[2018-05-09] MEDS: Multivitamin Therapeutic Tab PO SCH (08:31)
[2018-05-09] MEDS: Fluticasone Nasal 50 mcg/Spray NS SCH (08:38)
[2018-05-09] MEDS: Insulin Reg-LOW-Coverage SC SCH ×2 (08:38→12:03)
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
[2018-05-10] MEDS ORDERED: CABERGOLINE PO SCH (10:00)
== END 2018-05-09 15:46 | disposition home or self-care (01) | DRG 430 ==
LOC: MERGE 21:31 → ED 21:31 → ERH 05-02 11:21 → PSYC 05-02 12:35
PROVIDERS: ADMIT Psychiatry & Neurology Psychiatry; ATTEND Psychiatry & Neurology Psychiatry
DX: F25.9 Schizoaffective disorder, unspecified (principal); N39.0 Urinary tract infection, site not specified; F43.10 Post-traumatic stress disorder, unspecified; F60.3 Borderline personality disorder; E03.9 Hypothyroidism, unspecified; E11.9 Type 2 diabetes mellitus without complications; F17.210 Nicotine dependence, cigarettes, uncomplicated; F32.9 Major depressive disorder, single episode, unspecified; R45.851 Suicidal ideations; F90.9 Attention-deficit hyperactivity disorder, unspecified type; G47.00 Insomnia, unspecified; I10 Essential (primary) hypertension; J45.909 Unspecified asthma, uncomplicated; K21.9 Gastro-esophageal reflux disease without esophagitis; F81.9 Developmental disorder of scholastic skills, unspecified; R19.7 Diarrhea, unspecified; Z79.84 Long term (current) use of oral hypoglycemic drugs; Z91.19 Patient's noncompliance with other medical treatment and regimen; Z83.3 Family history of diabetes mellitus

== ENCOUNTER 2018-05-23 22:06 | Inpatient (IN) | payer MEDICAID ==
[2018-05-23 22:20] VITALS: BMI 37.0
--- NOTE | 2018-05-23 22:47 | ED PDOC ---
Arrival/HPI - General Time Seen by Provider: 05/23/18 22:12 Historian: Patient - History of Present Illness Narrative History of Present Illness (Text): 05/23/18 22:43 22 year old female, with a past medical history that includes Schizophrenia, Bipolar, ODD, ADHD, and depression, presents to the emergency department for evaluation s/p hearing voices, and not taking her medication. Patient states she has not been feeling well while on her medications, especially Thorazin, and has stopped taking them. Patient states she has been hearing voices instructing her to hurt herself. Patient does not have any specific plan to hurt herself, nor does she have access to a weapon. Patient denies any fevers, chills, headache, dizziness, chest pain, shortness of breath, cough, abdominal pain, nausea, vomiting, diarrhea, back pain, neck pain, or any other complaint. Symptom Onset: Gradual Symptom Course: Unchanged Activities at Onset: Light Past Medical History - Provider Review Nursing Documentation Reviewed: Yes - Tetanus Immunization Tetanus Immunization: Unknown - Cardiac Hx Hypertension: Yes - HEENT Hx HEENT Disorder: Yes Other/Comment: retina from both eyes as per patient - Renal Hx Renal Disorder: No - Integumentary Hx Dermatological Disorder: No - Musculoskeletal/Rheumatological Hx Musculoskeletal Disorders: No - Gastrointestinal Hx Gastrointestinal Disorders: No - Psychiatric Hx Substance Use: Yes - Surgical History Hx Orthopedic Surgery: Yes Hx Tonsillectomy: Yes - Anesthesia Hx Anesthesia: Yes Family/Social History - Physician Review Nursing Documentation Reviewed: Yes Family/Social History: No Known Family HX Smoking Status: Unknown If Ever Smoked Hx Alcohol Use: No Hx Substance Use: Yes Allergies/Home Meds Allergies/Adverse Reactions: Allergies haloperidol [From Haldol] Allergy (Verified 05/24/18 06:26) ANAPHYLAXIS risperidone [From Risperdal] Allergy (Verified 05/24/18 06:26) ANAPHYLAXIS shellfish derived Allergy (Verified 05/24/18 06:26) ANAPHYLAXIS seafood Allergy (Uncoded 05/24/18 06:26) ANAPHYLAXIS Home Medications: Home Meds Medication Instructions Recorded Confirmed Gabapentin [Neurontin] 300 mg PO BID 05/24/18 05/24/18 [place] Carbonate [[place] 600 mg PO BID 05/24/18 05/24/18 Carbonate 300MG] Prazosin HCL [Minipress] 2 mg PO HS 05/24/18 05/24/18 chlorproMAZINE [chlorPROMAZINE HCL] 50 mg PO DAILY 05/24/18 05/24/18 chlorproMAZINE [chlorpromazine HCl] 150 mg PO HS 05/24/18 05/24/18 Review of Systems - Physician Review All systems were reviewed & negative as marked: Yes - Review of Systems Constitutional: Normal. absent: Fevers, Night Sweats Eyes: Normal ENT: Normal Respiratory: Normal. absent: SOB, Cough Cardiovascular: Normal. absent: Chest Pain Gastrointestinal: Normal. absent: Abdominal Pain, Diarrhea, Nausea, Vomiting Genitourinary Female: Normal Musculoskeletal: Normal. absent: Back Pain, Neck Pain Skin: Normal Neurological: Normal. absent: Headache, Dizziness Endocrine: Normal Hemo/Lymphatic: Normal Psychiatric: Normal Physical Exam Vital Signs Temp Pulse Resp BP Pulse Ox 05/24/18 04:25 90 18 120/82 98 05/23/18 23:14 98.2 F 95 H 18 119/79 97 - Systems Exam Head: Present: Atraumatic, Normocephalic Pupils: Present: PERRL Extroacular Muscles: Present: EOMI Conjunctiva: Present: Normal Mouth: Present: Moist Mucous Membranes Neck: Present: Normal Range of Motion Respiratory/Chest: Present: Clear to Auscultation, Good Air Exchange. No: Respiratory Distress, Accessory Muscle Use Cardiovascular: Present: Regular Rate and Rhythm, Normal S1, S2. No: Murmurs Abdomen: No: Tenderness, Distention, Peritoneal Signs Back: Present: Normal Inspection Upper Extremity: Present: Normal Inspection. No: Cyanosis, Edema Lower Extremity: Present: Normal Inspection. No: Edema Neurological: Present: GCS=15, CN II-XII Intact, Speech Normal Skin: Present: Warm, Dry, Normal Color. No: Rashes Psychiatric: Present: Alert, Oriented x 3, Normal Insight, Normal Concentration Medical Decision Making ED Course and Treatment: 05/23/18 22:49 Impression: 22 year old female presents to the emergency department for evaluation s/p hearing voices. Plan: -- EKG -- Chest X-ray -- Labs -- Urinalysis -- [facility] Crisis Evaluation -- Reassess and disposition Prior Visits: Notes and results from previous visits were reviewed. Progress Notes: 05/23/18 22:57 EKG reviewed, shows: Normal sinus rhythm @95bpm Prolonged QT Abnormal EKG 05/23/18 22:59 Patient will be admitted for psychological evaluation. - Lab Interpretations Lab Results: 05/23/18 22:50 05/23/18 22:50 Lab Results 05/23/18 22:56: Urine Opiates Screen Negative, Urine Methadone Screen Negative, Ur Barbiturates Screen Negative, Ur Phencyclidine Scrn Negative, Ur Amphetamines Screen Negative, U Benzodiazepines Scrn Negative, U Oth Cocaine Metabols Negative, U Cannabinoids Screen Negative 05/23/18 22:56: Urine Color Yellow, Urine Appearance Clear, Urine pH 6.5, Ur Specific [place] 1.015, Urine Protein Negative, Urine Glucose (UA) Negative, Urine Ketones Negative, Urine Blood Negative, Urine Nitrate Negative, Urine Bilirubin Negative, Urine Urobilinogen 0.2, Ur Leukocyte Esterase Trace H, Urine RBC 0 - 2, Urine WBC 1 - 3, Ur Epithelial Cells 1 - 3, Urine Bacteria Rare , Urine HCG, Qual Negative 05/23/18 22:50: Alcohol, Quantitative < 10 05/23/18 22:50: Salicylates < 1 L, Acetaminophen < 10.0 L 05/23/18 22:50: Sodium 138, Potassium 3.9, Chloride 103, Carbon Dioxide 20 L, Anion Gap 18, BUN 6 L, Creatinine 0.5 L, Est GFR ( Amer) > 60, Est GFR ( Non-Af Amer) > 60, Random Glucose 127 H, Calcium 9.6, Total Bilirubin 0.2, AST 23, ALT 31, Alkaline Phosphatase 66, Total Protein 7.9, Albumin 4.5, Globulin 3.3, Albumin/Globulin Ratio 1.4 05/23/18 22:50: WBC 17.8 H D, RBC 4.51, Hgb 11.7 L, Hct 35.6 L, MCV 78.9 L, MCH 25.9, MCHC 32.9, RDW 14.5, Plt Count 429, MPV 10.0, Gran % 74.9 H, Lymph % (Auto ) 18.2 L, Early % (Auto) 4.7, Eos % (Auto) 2.0, Baso % (Auto) 0.2, Gran # 13.32 H , Lymph # (Auto) 3.2, Early # (Auto) 0.8 H, Eos # (Auto) 0.4, Baso # (Auto) 0.03 - RAD Interpretation Radiology Orders: 05/24/18 22:29 CHEST ONE VIEW [RAD] Stat - Medication Orders Current Medication Orders: Acetaminophen (Tylenol 325mg Tab) 650 mg PO Q4 PRN PRN Reason: Pain, moderate (4-7) Al Hydrox/Mg Hydrox/Simethicone (Maalox Plus 30 Ml) 30 ml PO DAILY PRN PRN Reason: Upset Stomach Magnesium Hydroxide (Milk Of Magnesia) 30 ml PO DAILY PRN PRN Reason: Constipation Discontinued Medications Lorazepam (Ativan) 1 mg PO ONCE ONE PRN Reason: Protocol Stop: 05/23/18 23:25 Last Admin: 05/23/18 23:42 Dose: 1 mg - Scribe Statement The provider has reviewed the documentation as recorded by the Scribjeramy Bonilla All medical record entries made by the Calebibjeramy were at my direction and personally dictated by me. I have reviewed the chart and agree that the record accurately reflects my personal performance of the history, physical exam, medical decision making, and the department course for this patient. I have also personally directed, reviewed, and agree with the discharge instructions and disposition. Disposition/Present on Arrival - Present on Arrival Any Indicators Present on Arrival: No History of DVT/PE: No History of Uncontrolled Diabetes: No Urinary Catheter: No History Surgical Site Infection Following: None - Disposition Have Diagnosis and Disposition been Completed?: Yes Diagnosis: Depression, Bipolar disorder Disposition: HOSPITALIZED Disposition Time: 03:00 Patient Plan: Admission Condition: FAIR
[2018-05-23 23:26] LABS: PH,URINE 6.5 (4.7-8.0); URINE BILIRUBIN NEGATIVE (NEGATIVE); URINE BLOOD NEGATIVE (NEGATIVE); URINE GLUCOSE (UA) NEGATIVE (NEGATIVE); URINE LEUKOCYTE ESTERASE TRACE Leu/uL (NEGATIVE); URINE PROTEIN NEGATIVE mg/dL (<30 mg/dL); URINE UROBILINOGEN 0.2 E.U./dL (<1 E.U./dL)
[2018-05-23 23:39] LABS: HCG,QUALITATIVE URINE NEGATIVE (NEGATIVE); URINE APPEARANCE CLEAR (CLEAR); URINE COLOR YELLOW (YELLOW)
[2018-05-23 23:40] LABS: ACETAMINOPHEN < 10.0 ug/ml (10.0-20.0); SALICYLATE < 1 mg/dL (2.0-20.0)
[2018-05-23 23:42] LABS: URINE BACTERIA RARE (NEG); URINE RBC 0 - 2 /hpf (0-2)
[2018-05-23 23:45] LABS: BASO # 0.03 K/mm3 (0.0-2.0); BASO % 0.2 % (0.0-3.0); EOS # 0.4 (0.0-0.7); GRAN # 13.32 (1.4-6.5); GRAN % 74.9 % (50.0-68.0); HEMOGLOBIN 11.7 g/dL (12.0-16.0); LYMPH # 3.2 (1.2-3.4); LYMPH % 18.2 % (22.0-35.0); MEAN CELL VOLUME 78.9 fl (80.0-105.0); MEAN CORPUSCULAR HEMOGLOBIN 25.9 pg (25.0-35.0); MEAN CORPUSCULAR HGB CONC 32.9 g/dl (31.0-37.0); MONO # 0.8 (0.1-0.6); MONO % 4.7 % (1.0-6.0); RBC 4.51 10^6/uL (3.5-6.1); RED CELL DISTRIBUTION WIDTH 14.5 % (11.5-14.5); WHITE BLOOD COUNT 17.8 10^3/ul (4.5-11.0)
[2018-05-23 23:55] LABS: BARBITURATES, UR NEGATIVE (NEGATIVE); BENZODIAZEPINES, UR NEGATIVE (NEGATIVE); OPIATES, UR NEGATIVE (NEGATIVE); PHENCYCLIDINE, UR NEGATIVE (NEGATIVE)
[2018-05-23 23:55] LABS: ALB/GLOB RATIO 1.4 (1.1-1.8); ALBUMIN 4.5 g/dL (3.0-4.8); ALT/SGPT 31 U/L (7-56); AST/SGOT 23 U/L (14-36); BLOOD UREA NITROGEN 6 mg/dL (7-21); CALCIUM 9.6 mg/dL (8.4-10.5); GFR AFRICAN-AMERICAN > 60; GFR NON-AFRICAN AMERICAN > 60
[2018-05-24 05:25] VITALS: O2SAT 98
[2018-05-24] MEDS ORDERED: Magnesium Hydroxide Susp 30 ml UD PO PRN (06:25)
[2018-05-24] MEDS ORDERED: Alum-Mag Hydrox-Simethicone Susp (30 mL) PO PRN (06:25)
[2018-05-24 07:58] LABS: GLUCOSE,FASTING 139 mg/dL (65-110); HDL CHOLESTEROL 38 mg/dL (29-60)
[2018-05-24 08:09] LABS: LDL CHOLESTEROL 91 mg/dL (0-129)
--- NOTE | 2018-05-24 09:23 | RAD ---
Date of service: 05/24/2018 PROCEDURE: CHEST RADIOGRAPH, 1 VIEW HISTORY: Medical Clearance COMPARISON: None available. FINDINGS: LUNGS: Clear. PLEURA: No pneumothorax or pleural fluid seen. CARDIOVASCULAR: Normal. OSSEOUS STRUCTURES: No significant abnormalities. VISUALIZED UPPER ABDOMEN: Normal. OTHER FINDINGS: None. IMPRESSION: No active disease.
[2018-05-24] MEDS ORDERED: CABERGOLINE 0.5 MG PO ONE (10:00)
--- NOTE | 2018-05-24 11:23 | PCM.BM ---
<Christine Lara - Last Filed: 05/24/18 11:19> Treatment Plan Problems - Problems identified on initial assessmt HIGH RISK:SUICIDE Date Initiated: 05/24/18 Time Initiated: 11:20 Assessment reference: NA Status: Active HOPELESSNESS/HELPLESSNESS Date Initiated: 05/24/18 Time Initiated: 11:21 Assessment reference: NA Status: Active ALTERED SLEEP PATTERN Date Initiated: 05/24/18 Time Initiated: 11:22 Assessment reference: NA Status: Active MEDICATIONADHERENCE Date Initiated: 05/24/18 Time Initiated: 11:22 Assessment reference: NA Status: Active Treatment assets and liabiliti Patient Assests: adapts well, cooperative, ADL independent, negotiates basic needs Patient Liabilities: relationship conflicts, substance abuse, auditory impairment - Milieu Protocol Maintain good personal hygiene: every shift Encourage regular showers, every shift Remind patient to perform daily oral care, every shift Assist patient to perform ADL's Conduct patient checks and document Observation sheet: Q15 minutes Maintain personal safety: every shift Educate patient to report safety concerns to staff, every shift Monitor environment for contraband/sharps Medication safety: Monitor for expected outcome, potential side effects: every shift, Assess barriers to learning: every shift, Assess readiness for medication education: every shift Discharge/Continuing Care - Education Needs Education Needs: Patient Medication, Patient Diagnosis/Disease Process, Patient Coping Skills, Patient Community resources, Patient Personal Hygiene/Grooming, Patient Aftercare Safety Plan - Discharge Discharge Criteria: Tolerates medication w/o severe side effects, Free of Suicidal thoughts, Free of paranoid thoughts, Normal sleep pattern, Ability to care for self <Ngozi Gallo - Last Filed: 05/24/18 15:06> - Diagnosis (1) Neurocognitive disorder Status: Acute Interventions: 05/24/18 15:00 med management DDD case management follow up support from halfway safe discharge DBT supportive therapy (2) Borderline personality disorder Status: Chronic Interventions: 05/24/18 15:00 DBT as outpatient Psychoeducation Psychopharmacology/adjustment of medications as needed/ monitoring possible side effects Evaluate pt on daily basis Compliance with medications and follow up appointments Suicide and homicide risk assessment and prevention, coping strategies, safety plan Relapse prevention Family involvement As outpatient: Transference-focused psychotherapy/dialectical behavioral therapy /schema therapy Mindfulness skills 05/24/18 15:07 (3) PTSD (post-traumatic stress disorder) Status: Chronic Interventions: 05/24/18 15:07 Psychoeducation Psychopharmacology/adjustment of medications as needed/ monitoring possible side effects Evaluate pt on daily basis Discussion of importance of being compliant with medications and follow up appointments Suicide and homicide risk assessment and prevention, coping strategies, safety plan Reduction of symptoms Relaxation techniques and breathing exercises Improve functional status Family involvement Cognitive behavioral therapy as outpatient <Jocelyn Senior Y - Last Filed: 05/24/18 16:43> Family Contact Family involvement: Family/SO is involved Family contact: Patient agrees to contact - Outside Agency [facility] involvment: Following patient during stay, Information-sharing Agency contact name: [facility]
[2018-05-24] MEDS ORDERED: Albuterol HFA 90 mcg/actuation (8 g) IH PRN (13:21)
[2018-05-24] MEDS: Calcium-Vit D 250 mg-125 Units Tab UD PO SCH (14:02)
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
--- NOTE | 2018-05-24 15:34 | PCM.PYCHPN ---
Psychiatric Progress Note - Psychiatric Progress Note Patient seen today, length of contact: 30min Patient Chief Complaint: "I got to know that my friend committed suicide, I wanted to be with her and that is why I am here" Problems Identified/Issues Discussed: Suicide/ homicide prevention, past psychiatric h/o, current psychiatric symptoms , medical problems, risk/benefits and alternatives of medications, medications compliance, coping strategies, substance abuse h/o, relapse prevention, importance of follow up with psychiatrist and therapist, discharge plan. Medical Problems: T2DM, GERD, environmental allergies, leukocytosis, med consult called. Diagnostic Results: 05/23/18 22:50 05/23/18 22:50 Lab Results 05/24/18 07:41: POC Glucose (mg/dL) 123 H 05/24/18 07:30: TSH 3rd Generation 4.96 H 05/24/18 07:30: Fasting Glucose 139 H, Triglycerides 288 H, Cholesterol 163, LDL Cholesterol Direct 91, HDL Cholesterol 38 05/23/18 22:56: Urine Opiates Screen Negative, Urine Methadone Screen Negative, Ur Barbiturates Screen Negative, Ur Phencyclidine Scrn Negative, Ur Amphetamines Screen Negative, U Benzodiazepines Scrn Negative, U Oth Cocaine Metabols Negative, U Cannabinoids Screen Negative 05/23/18 22:56: Urine Color Yellow, Urine Appearance Clear, Urine pH 6.5, Ur Specific [place] 1.015, Urine Protein Negative, Urine Glucose (UA) Negative, Urine Ketones Negative, Urine Blood Negative, Urine Nitrate Negative, Urine Bilirubin Negative, Urine Urobilinogen 0.2, Ur Leukocyte Esterase Trace H, Urine RBC 0 - 2, Urine WBC 1 - 3, Ur Epithelial Cells 1 - 3, Urine Bacteria Rare , Urine HCG, Qual Negative 05/23/18 22:50: Alcohol, Quantitative < 10 05/23/18 22:50: Salicylates < 1 L, Acetaminophen < 10.0 L 05/23/18 22:50: Sodium 138, Potassium 3.9, Chloride 103, Carbon Dioxide 20 L, Anion Gap 18, BUN 6 L, Creatinine 0.5 L, Est GFR ( Amer) > 60, Est GFR ( Non-Af Amer) > 60, Random Glucose 127 H, Calcium 9.6, Total Bilirubin 0.2, AST 23, ALT 31, Alkaline Phosphatase 66, Total Protein 7.9, Albumin 4.5, Globulin 3.3, Albumin/Globulin Ratio 1.4 05/23/18 22:50: WBC 17.8 H D, RBC 4.51, Hgb 11.7 L, Hct 35.6 L, MCV 78.9 L, MCH 25.9, MCHC 32.9, RDW 14.5, Plt Count 429, MPV 10.0, Gran % 74.9 H, Lymph % (Auto ) 18.2 L, [place] % (Auto) 4.7, Eos % (Auto) 2.0, Baso % (Auto) 0.2, Gran # 13.32 H , Lymph # (Auto) 3.2, [place] # (Auto) 0.8 H, Eos # (Auto) 0.4, Baso # (Auto) 0.03 Vital Signs Temp Pulse Pulse Resp BP Pulse Ox 05/24/18 09:53 116 H 20 05/24/18 07:09 98.0 F 116 H 20 130/83 05/24/18 06:25 20 98 05/24/18 04:25 90 18 120/82 98 05/23/18 23:14 98.2 F 95 H 18 119/79 97 DSM 5 Symptoms Update: Refer to the Psychiatric Assess & History-Initial dated 05/03/18 for this H & P. Reviewed, no changes shortly: Ilya Felder is a 22 yo female with developmental disability, borderline personality disorder, hx of noncompliance, and ? schizoaffective disorder and multiple prior psych hospitalizations, this inspector automatic typewriter very familiar with this pt from the last admission which took place here in [facility] less than two weeks ago, please see Initial Evaluation note 05/03/18 for detailed information. pt presented to the hospital for self reported suicidal ideation after pt got to know that her friend completed suicide. pt was seen and examined, discussed with staff, med list requested and meds resumed. pt was seen at the treatment team meeting, pt presented with very good personal hygiene, excellent ADLs. patient has very nice hair style, purple yuli which were matching with her nail khmer. pt has affective reactivity, seems to happy to see this inspector automatic typewriter. pt presented to be dramatic, said that yesterday she got to know that her girlfriend committed suicide, called her mother and mother advised her to come to the hospital. pt said that she was doing "very well", prior yesterday, pt was compliant with meds and follow up appts, pt now is not fixated that staff mistreating her. pt reported that she tolerates medications well, no side effects observed or reported, aims 0, no EPS. Collaterals were obtained from the snf by social welfare clerk, as per snf patient was behaving well, no disrespectful or aggressive behavior, patient was compliant with snf rules and regulations, no behavioral disturbances, pt did not try to run away. (of note last admission pt was running away from the snf, was not compliant with meds, was oppositional) . pt has tendency of saying that she hears voices, but obviously did not present to be psychotic or responding to internal stimuli. Medical h/o: T2DM, GERD, environmental allergies, leukocytosis, med consult called. Past psych h/o: previous psych [place] [facility], before that 04/17/18 [place] for suicidal ideation and auditory hallucinations. According to medical records, she was uncooperative and refused to take medications. She signed a 48 hr notice but was transferred to [facility] and later discharged back to her snf. Prior to this, the patient was in [facility] for 3 months awaiting placement. She then started living in the snf in February. The patient states that she has been in and out of psychiatric care since she was 6 yo. She also was in and out of foster care as a child. She reports being homeless from [age] yo. She had a baby at 15 yo who was given up for adoption. Despite this, she managed to finish high school. She currently sees an outpatient psychiatrist monthly, [facility] med list in chart. FH: unknown pt's mother was involved last admission. SH: [facility] in [facility] who lives with his parents DDD worker Janine Unemployed- receives [employer] HS diploma Tobacco- 2 ppd cigarettes Denies current alcohol and illicit drugs- reports last used drugs a year and a half ago to get high but still has cravings Impression: pt suffers from severe borderline personality disorder r/o impulse control disorder ?bipolar disorder ?schizoaffective disorder h/o alcohol abuse polysubstance abuse and dependence neurocognitive deficit with executive functioning problems Medication Change: No (continued) Medical Record Reviewed: Yes Consults ordered or reviewed: med consult called Mental Status Examination - Cognitive Function Orientation: Person, Place, Situation, Time Memory: Intact Attention: WNL Concentration: WNL Association: WNL Fund of Knowledge: WNL - Mood Mood: Depressed (pt reported to be depressed, but affect was full range) - Affect Affect: Broad - Speech Speech: Appropriate - Formal Thought Process Formal Thought Process: No Impairment, Other (self reported, but pt does not appear to be psychotic) - Suicidal Ideation Suicidal Ideation: Yes Plan: verbalized in ED contracted for safety later on requested to be on 1:1 pt does not meet criteria was advised to be next to the nursing station, pt was observed socializing and coloring smiling - Homicidal Ideation Homicidal Ideation: No Goal/Treatment Plan - Goal/Treatment Plan Need for Continued Stay: Other (pt needs to stay for observation) Progress Toward Problem(s) and Goals/Treatment Plan: milieu/structure/supportive therapy meeting with DDD worker snf collaterals appreciated Prozac 40 mg daily for depression and anxiety [place] 600 mg bid for mood stabilization lithium level tomorrow Gabapentin 300 mg tid for anxiety Naltrexone 50 daily for cravings Trazodone 50 mg qhs prn for depression and insomnia Thorazine 50 mg bid, 150qhs for psychotic symptoms Thorazine 25 mg IM tid prn for agitation/psychosis Vistaril 50 mg PO qid prn for anxiety Benadryl 25 mg IM q6hrs prn for agitation Medicine consult for leukocytosis, pt c/o painful urinations Milieu and group therapy consult for social issues and discharge planning Pt was educated about risk/benefits and alternatives of medications, coping strategies (safety plan, suicide prevention), relapse prevention, importance of follow up with psychiatrist and therapist, stay away from drugs/alcohol/smoking. Dialectical behavioral therapy recommended prolactin was elevated, pt was on cabergoline therapy, RN was advised to call her snf to bring the meds. pt requires 72 hr observation no need 1:1 for now Estimated Date of D/C: 05/27/18 - Smoking Cessation Smoking Cessation Initiated: Yes
[2018-05-24] MEDS: Fluticasone Nasal 50 mcg/Spray NS SCH (17:20)
--- NOTE | 2018-05-24 21:01 | CARD ---
APPROVED REPORT Date of service: 05/23/2018 EKG Measurement Heart [id number] <Conclusion> Normal sinus rhythm Normal ECG
[2018-05-24] MEDS: PRAZOSIN HCL 2 MG PO SCH (22:00)
[2018-05-25 06:21] LABS: HEMOGLOBIN 11.4 g/dL (12.0-16.0); MEAN CELL VOLUME 79.7 fl (80.0-105.0); MEAN CORPUSCULAR HEMOGLOBIN 25.1 pg (25.0-35.0); MEAN CORPUSCULAR HGB CONC 31.5 g/dl (31.0-37.0); MEAN PLATELET VOLUME 9.6 fl (7.0-11.0); RBC 4.54 10^6/uL (3.5-6.1); RED CELL DISTRIBUTION WIDTH 14.8 % (11.5-14.5); WHITE BLOOD COUNT 14.7 10^3/ul (4.5-11.0)
[2018-05-25 06:44] LABS: ALB/GLOB RATIO 1.3 (1.1-1.8); ALT/SGPT 27 U/L (7-56); AST/SGOT 24 U/L (14-36); BLOOD UREA NITROGEN 8 mg/dL (7-21); CALCIUM 9.6 mg/dL (8.4-10.5); GFR AFRICAN-AMERICAN > 60; GFR NON-AFRICAN AMERICAN > 60
[2018-05-25] MEDS: Pantoprazole 40 mg EC Tab PO SCH (09:56)
[2018-05-25] MEDS: Calcium-Vit D 250 mg-125 Units Tab UD PO SCH (09:56)
[2018-05-25] MEDS: Fluticasone Nasal 50 mcg/Spray NS SCH (10:08)
--- NOTE | 2018-05-25 10:44 | PCM.PYCHPN ---
Psychiatric Progress Note - Psychiatric Progress Note Patient seen today, length of contact: 30min Problems Identified/Issues Discussed: I reviewed assessment and recent staff notes. Patient was interviewed at bedside. Her grooming is fair and she remains oriented x3. Patient continues to report depression with low energy, lability, poor appetite and hallucinations. She is coherent and does not appear to be affected by any hallucinations. Affect is irritable, brittle and labile. She tells me that there is "no way I am ready to leave". She told nursing that if she was discharged she would commit suicide. She can be dramatic, consistent with her diagnosis of borderline personality disorder however she does pose as a risk because this provider cannot rule out she will act out and harm herself to "prove" she is requires hospitalization (rather than having an actual desire to end her life). Her insight, judgment and IC are poor. Diagnostic Results: pt suffers from severe borderline personality disorder r/o impulse control disorder ?bipolar disorder ?schizoaffective disorder h/o alcohol abuse polysubstance abuse and dependence neurocognitive deficit with executive functioning problems Medication Change: No (continued) Medical Record Reviewed: Yes Mental Status Examination - Cognitive Function Orientation: Person, Place, Situation Concentration: Poor Association: Loose Fund of Knowledge: WNL - Mood Mood: Depressed (pt reported to be depressed, but affect was full range) - Affect Affect: Broad, Other (labile and impulsive and irritable) - Speech Speech: Appropriate - Formal Thought Process Formal Thought Process: No Impairment, Other (self reported AH, but pt does not appear to be psychotic) - Suicidal Ideation Suicidal Ideation: Yes - Homicidal Ideation Homicidal Ideation: No Goal/Treatment Plan - Goal/Treatment Plan Need for Continued Stay: Other (pt needs to stay for observation) Progress Toward Problem(s) and Goals/Treatment Plan: c/w current tx and plan on the unit Patient will not be discharged today and should be further monitored due to severity of personality disorder. This provider also cannot discount the impact of her friends suicide (if this actually occurred) Vitals reviewed and noted below: Selected Entries 05/25/18 06:37 Temperature 98.7 F Pulse Rate 88 Respiratory 22 Rate Blood Pressure 118/74 New floor labs noted below Laboratory Results - last 24 hr 05/24/18 05/24/18 05/25/18 07:30 16:31 06:00 WBC RBC Hgb Hct MCV MCH MCHC RDW Plt Count MPV Sodium Potassium Chloride Carbon Dioxide Anion Gap BUN Creatinine Est GFR ( Amer) Est GFR (Non-Af Amer) POC Glucose (mg/dL) 223 H Random Glucose Calcium Phosphorus Magnesium Total Bilirubin AST ALT Alkaline Phosphatase Total Protein Albumin Globulin Albumin/Globulin Ratio [place] 0.6 RPR Nonreactive 05/25/18 05/25/18 06:00 06:00 WBC 14.7 H RBC 4.54 Hgb 11.4 L Hct 36.2 MCV 79.7 L MCH 25.1 MCHC 31.5 RDW 14.8 H Plt Count 430 MPV 9.6 Sodium 141 Potassium 4.2 Chloride 106 Carbon Dioxide 25 Anion Gap 15 BUN 8 Creatinine 0.5 L Est GFR ( Amer) > 60 Est GFR (Non-Af Amer) > 60 POC Glucose (mg/dL) Random Glucose 131 H Calcium 9.6 Phosphorus 4.0 Magnesium 1.8 Total Bilirubin 0.1 L AST 24 ALT 27 Alkaline Phosphatase 60 Total Protein 7.1 Albumin 4.0 Globulin 3.1 Albumin/Globulin Ratio 1.3 [place] RPR Estimated Date of D/C: 05/27/18
[2018-05-25] MEDS ORDERED: Bacitracin/Neomycin/Polymyxin Oint(30GM) TOP STA (12:55)
[2018-05-26] MEDS: PRAZOSIN HCL 2 MG PO SCH (06:27)
[2018-05-26 07:26] VITALS: RESP 20
[2018-05-26] MEDS ORDERED: Bacitracin/Neomycin/Polymyxin Oint(30GM) TOP SCH (08:00)
[2018-05-26] MEDS: Pantoprazole 40 mg EC Tab PO SCH (08:14)
[2018-05-26] MEDS: Calcium-Vit D 250 mg-125 Units Tab UD PO SCH (08:14)
[2018-05-26] MEDS: Fluticasone Nasal 50 mcg/Spray NS SCH (08:16)
--- NOTE | 2018-05-26 09:44 | PCM.PYCHPN ---
Psychiatric Progress Note - Psychiatric Progress Note Patient seen today, length of contact: 30min Problems Identified/Issues Discussed: I reviewed assessment and recent staff notes. Patient was started on 1:1 observation for "suicidal gesture" of scratching herself with a pencil eraser yesterday. This occurred after a conversation about discharge. This appeared attention-seeking as patient has been very future oriented during discussions with staff as well as the fact the patient was overheard discussing this admission as a possible secondary gain to get someone in trouble. Regardless the whole story is very unclear and patient does have a notable mental health issues and difficulty with impulse control. Whether her presentation is because of to primary or secondary axis symptoms (or likely BOTH) she is still be a danger to herself due to the severe maladaptiveness of her personality disorder. Patient was interviewed at bedside. Her grooming is fair and she remains oriented x3. Patient continues to report depression with low energy, lability, poor appetite and hallucinations. She is coherent and does not appear to be affected by any hallucinations. Affect is labile. She denies any new discomfort or pain. Her insight, judgment and IC are fair to poor. Diagnostic Results: pt suffers from severe borderline personality disorder r/o impulse control disorder ?bipolar disorder ?schizoaffective disorder h/o alcohol abuse polysubstance abuse and dependence neurocognitive deficit with executive functioning problems Medication Change: No (continued) Medical Record Reviewed: Yes Mental Status Examination - Cognitive Function Orientation: Person, Place, Situation Concentration: Poor Association: Loose Fund of Knowledge: WNL - Mood Mood: Depressed (pt reported to be depressed, but affect was full range) - Affect Affect: Broad, Other (labile and manipulative) - Speech Speech: Appropriate - Formal Thought Process Formal Thought Process: No Impairment, Other (self reported AH, but pt does not appear to be psychotic) - Suicidal Ideation Suicidal Ideation: No - Homicidal Ideation Homicidal Ideation: No Goal/Treatment Plan - Goal/Treatment Plan Need for Continued Stay: Other (pt needs to stay for observation) Progress Toward Problem(s) and Goals/Treatment Plan: c/w current tx and plan on the unit -thorazine 50 mg AM and 150 mg HS for reported hallucinations and impulse control -Prozac 40 mg po daily for depression and anxiety -Vistaril 50 mg po q8 prn: anxiety -Lazy Y U 600 mg po bid for mood stabilization 05/25/18 06:00 Lazy Y U 0.6 Patient will not be discharged this weekend and should be further monitored due to severity of personality disorder. This provider also cannot discount the impact of her friends suicide (if this actually occurred) Vitals reviewed and noted below: Selected Entries 05/26/18 07:23 Temperature 97.5 F L Pulse Rate 86 Respiratory 20 Rate Blood Pressure 119/72 New weekend floor labs noted below Laboratory Results - last 24 hr 05/24/18 05/24/18 05/25/18 07:30 16:31 06:00 WBC RBC Hgb Hct MCV MCH MCHC RDW Plt Count MPV Sodium Potassium Chloride Carbon Dioxide Anion Gap BUN Creatinine Est GFR ( Amer) Est GFR (Non-Af Amer) POC Glucose (mg/dL) 223 H Random Glucose Calcium Phosphorus Magnesium Total Bilirubin AST ALT Alkaline Phosphatase Total Protein Albumin Globulin Albumin/Globulin Ratio [place] 0.6 RPR Nonreactive 05/25/18 05/25/18 06:00 06:00 WBC 14.7 H RBC 4.54 Hgb 11.4 L Hct 36.2 MCV 79.7 L MCH 25.1 MCHC 31.5 RDW 14.8 H Plt Count 430 MPV 9.6 Sodium 141 Potassium 4.2 Chloride 106 Carbon Dioxide 25 Anion Gap 15 BUN 8 Creatinine 0.5 L Est GFR ( Amer) > 60 Est GFR (Non-Af Amer) > 60 POC Glucose (mg/dL) Random Glucose 131 H Calcium 9.6 Phosphorus 4.0 Magnesium 1.8 Total Bilirubin 0.1 L AST 24 ALT 27 Alkaline Phosphatase 60 Total Protein 7.1 Albumin 4.0 Globulin 3.1 Albumin/Globulin Ratio 1.3 [place] RPR Estimated Date of D/C: 05/27/18
[2018-05-26] MEDS: Bacitracin Ointment 30 GM TUBE TOP SCH (10:21)
--- NOTE | 2018-05-26 11:20 | CP.PCM.PN ---
<Erma Ackerman - Last Filed: 05/26/18 11:16> Subjective - Date & Time of Evaluation Date of Evaluation: 05/26/18 Time of Evaluation: 11:17 - Subjective Subjective: Erma Ackerman, PGY-1, Internal Medicine Progress note for Dr. Horne Patient seen and examined this morning. Yesterday, patient was found to have extensive new skins rodas on her left arm. Patient reported that these were due to "eraser santillan". She reports she took the eraser off and scratched herself with the metal part of the pencil. Patient cleaned blood with toilet paper and flushed it down the toilet. Patient reports improved diarrhea. Patient dnies abdominal discomfort, vomiting, chest pain, shortness of breath. Objective - Vital Signs/Intake and Output Vital Signs (last 24 hours): Temp Pulse Resp BP Pulse Ox 97.5 F L 86 20 119/72 98 05/26/18 07:23 05/26/18 07:23 05/26/18 07:23 05/26/18 07:23 05/24/18 06:25 - Medications Medications: Current Medications Acetaminophen (Tylenol 325mg Tab) 650 mg PO Q4 PRN PRN Reason: Pain, moderate (4-7) Al Hydrox/Mg Hydrox/Simethicone (Maalox Plus 30 Ml) 30 ml PO DAILY PRN PRN Reason: Upset Stomach Albuterol (Ventolin Hfa 90 Mcg/Actuation (8 G)) 2 puff IH [id number] PRN PRN Reason: Shortness of Breath Bacitracin (Bacitracin) 0 gm TOP DAILY [facility] Last Admin: 05/26/18 10:21 Dose: 1 applic Calcium/Vitamin D (Oscal-D 250 Mg-125 Units Tab) 1 tab PO DAILY [facility] Last Admin: 05/26/18 08:14 Dose: 1 tab Cephalexin Monohydrate (Keflex) 500 mg PO Q8 [facility] PRN Reason: Protocol Last Admin: 05/26/18 10:21 Dose: 500 mg Chlorpromazine (Thorazine) 50 mg PO DAILY [facility] PRN Reason: Protocol Last Admin: 05/26/18 08:13 Dose: 50 mg Chlorpromazine (Thorazine) 150 mg PO HS [facility] PRN Reason: Protocol Last Admin: 05/25/18 22:15 Dose: 150 mg Chlorpromazine (Thorazine) 25 mg IM TID PRN; Protocol PRN Reason: Agitation Chlorpromazine (Thorazine) 25 mg PO TID PRN; Protocol PRN Reason: agitation/voices Last Admin: 05/25/18 13:18 Dose: 25 mg Diphenhydramine HCl (Benadryl) 25 mg PO TID PRN PRN Reason: Agitation Last Admin: 05/25/18 22:14 Dose: 25 mg Diphenhydramine HCl (Benadryl) 50 mg PO HS PRN PRN Reason: Insomnia Last Admin: 05/24/18 21:16 Dose: 50 mg Fluoxetine HCl (Prozac) 40 mg PO DAILY [facility] Last Admin: 05/26/18 08:14 Dose: 40 mg Fluticasone Propionate (Flonase) 1 actuation NS DAILY [facility] Last Admin: 05/26/18 08:16 Dose: 1 spr Gabapentin (Neurontin) 300 mg PO TID [facility] PRN Reason: Protocol Last Admin: 05/26/18 08:13 Dose: 300 mg Home Med (Home Med) 2 unit PO HS [facility] Hydroxyzine Pamoate (Vistaril) 50 mg PO Q8 PRN; Protocol PRN Reason: Anxiety Last Admin: 05/25/18 10:08 Dose: 50 mg [place] Carbonate ([place] Carbonate 300mg) 600 mg PO BID [facility] Last Admin: 05/26/18 08:14 Dose: 600 mg Loratadine (Claritin) 10 mg PO DAILY [facility] Last Admin: 05/26/18 08:14 Dose: 10 mg Magnesium Hydroxide (Milk Of Magnesia) 30 ml PO DAILY PRN PRN Reason: Constipation Metformin HCl (Glucophage) 500 mg PO BID [facility] Last Admin: 05/26/18 08:14 Dose: 500 mg Naltrexone HCl (Revia) 50 mg PO DAILY [facility] Last Admin: 05/26/18 08:14 Dose: 50 mg Nicotine (Nicoderm Cq) 1 patch TD DAILY [facility] Last Admin: 05/26/18 08:13 Dose: 1 patch Pantoprazole Sodium (Protonix Ec Tab) 40 mg PO 0600 [facility] Last Admin: 05/26/18 08:14 Dose: 40 mg Trazodone HCl (Desyrel) 50 mg PO HS PRN PRN Reason: Insomnia Last Admin: 05/25/18 22:14 Dose: 50 mg - Labs Labs: 05/25/18 06:00 05/25/18 06:00 - Constitutional Appears: Well, Non-toxic - Head Exam Head Exam: ATRAUMATIC, NORMOCEPHALIC - Eye Exam Eye Exam: EOMI, PERRL - Respiratory Exam Respiratory Exam: Clear to Ausculation Bilateral, NORMAL BREATHING PATTERN - Cardiovascular Exam Cardiovascular Exam: REGULAR RHYTHM, RRR - GI/Abdominal Exam GI & Abdominal Exam: Soft, Normal Bowel Sounds - Neurological Exam Neurological Exam: Alert, Awake, CN II-XII Intact, Oriented x3 - Skin Additional comments: Multiple new shallow wounds with skin scraped off of on left arm. Wounds are not bleeding. Multiple older scars on right arm. Assessment and Plan - Assessment and Plan (Free Text) Assessment: Patient is a 22 year old female with past medical history of diabetes mellitus type 2, asthma, seasonal allergies, hypothyroidism, hypertension, hyperlipidemia , PTSD, borderline personality disorder, schizophrenia who presented to [facility] with auditory hallucinations that are telling her to commit suicide. Plan: Bloody Diarrhea -doubt infectious process. diarrhea was not documented by nursing staff -C. Dif antigen: negative -Urine culture: 10-50,000 multiple species. Probable contamination. -Stool leukocytes negative. Stool culture, Stool H. Pylori antigen, Stool Occult Blood ordered. -RPR: nonreactive -Procalcitonin: <0.05 -Maalox 30 ml Superficial Right Arm Wounds -likely self inflicted wounds -cephalexin 500 mg Q8, bacitracin ointment for prevention of infection. Diabetes Mellitus Type 2 -Random glucose 05/25: 131 -Lipid profile: Triglycerides: 288, Cholesterol: 163, LDL: 91, HDL: 38 -continue metformin 500 mg BID Hypothyroidism -TSH: 4.96 on 05/24 Auditory Hallucinations 2/2 to schizophrenia vs. borderline personality disorder -As per Dr. Gallo, continue with chlorpromazine, fluoxetine, lithium carbonate, trazodone -UDS: negative -Alcohol: negative Microcytic anemia -hemoglobin: 11.4 on 05/25 from 11.7 on 05/23. Baseline hemoglobin 11.7-13 -Continue to monitor Disposition -Continue to monitor patient for return on labs. <Rachana Horne - Last Filed: 05/26/18 18:44> Objective - Vital Signs/Intake and Output Vital Signs (last 24 hours): Temp Pulse Resp BP Pulse Ox 97.5 F L 89 20 112/68 98 05/26/18 07:23 05/26/18 15:00 05/26/18 15:00 05/26/18 15:00 05/24/18 06:25 - Medications Medications: Current Medications Acetaminophen (Tylenol 325mg Tab) 650 mg PO Q4 PRN PRN Reason: Pain, moderate (4-7) Last Admin: 05/26/18 12:50 Dose: 650 mg Al Hydrox/Mg Hydrox/Simethicone (Maalox Plus 30 Ml) 30 ml PO DAILY PRN PRN Reason: Upset Stomach Albuterol (Ventolin Hfa 90 Mcg/Actuation (8 G)) 2 puff IH [id number] PRN PRN Reason: Shortness of Breath Bacitracin (Bacitracin) 0 gm TOP DAILY [facility] Last Admin: 05/26/18 10:21 Dose: 1 applic Calcium/Vitamin D (Oscal-D 250 Mg-125 Units Tab) 1 tab PO DAILY [facility] Last Admin: 05/26/18 08:14 Dose: 1 tab Cephalexin Monohydrate (Keflex) 500 mg PO Q8 [facility] PRN Reason: Protocol Last Admin: 05/26/18 13:21 Dose: 500 mg Chlorpromazine (Thorazine) 50 mg PO DAILY [facility] PRN Reason: Protocol Last Admin: 05/26/18 08:13 Dose: 50 mg Chlorpromazine (Thorazine) 150 mg PO HS [facility] PRN Reason: Protocol Last Admin: 05/25/18 22:15 Dose: 150 mg Chlorpromazine (Thorazine) 25 mg IM TID PRN; Protocol PRN Reason: Agitation Chlorpromazine (Thorazine) 25 mg PO TID PRN; Protocol PRN Reason: agitation/voices Last Admin: 05/25/18 13:18 Dose: 25 mg Diphenhydramine HCl (Benadryl) 25 mg PO TID PRN PRN Reason: Agitation Last Admin: 05/25/18 22:14 Dose: 25 mg Diphenhydramine HCl (Benadryl) 50 mg PO HS PRN PRN Reason: Insomnia Last Admin: 05/24/18 21:16 Dose: 50 mg Fluoxetine HCl (Prozac) 40 mg PO DAILY [facility] Last Admin: 05/26/18 08:14 Dose: 40 mg Fluticasone Propionate (Flonase) 1 actuation NS DAILY [facility] Last Admin: 05/26/18 08:16 Dose: 1 spr Gabapentin (Neurontin) 300 mg PO TID [facility] PRN Reason: Protocol Last Admin: 05/26/18 17:53 Dose: 300 mg Home Med (Home Med) 2 unit PO HS [facility] Hydroxyzine Pamoate (Vistaril) 50 mg PO Q8 PRN; Protocol PRN Reason: Anxiety Last Admin: 05/26/18 13:21 Dose: 50 mg [place] Carbonate ([place] Carbonate 300mg) 600 mg PO BID [facility] Last Admin: 05/26/18 16:56 Dose: 600 mg Loratadine (Claritin) 10 mg PO DAILY [facility] Last Admin: 05/26/18 08:14 Dose: 10 mg Magnesium Hydroxide (Milk Of Magnesia) 30 ml PO DAILY PRN PRN Reason: Constipation Metformin HCl (Glucophage) 500 mg PO BID [facility] Last Admin: 05/26/18 16:56 Dose: 500 mg Naltrexone HCl (Revia) 50 mg PO DAILY [facility] Last Admin: 05/26/18 08:14 Dose: 50 mg Nicotine (Nicoderm Cq) 1 patch TD DAILY [facility] Last Admin: 05/26/18 08:13 Dose: 1 patch Pantoprazole Sodium (Protonix Ec Tab) 40 mg PO 0600 [facility] Last Admin: 05/26/18 08:14 Dose: 40 mg Trazodone HCl (Desyrel) 50 mg PO HS PRN PRN Reason: Insomnia Last Admin: 05/25/18 22:14 Dose: 50 mg - Labs Labs: 05/25/18 06:00 05/25/18 06:00 Attending/Attestation - Attestation I have personally seen and examined this patient.: Yes I have fully participated in the care of the patient.: Yes I have reviewed all pertinent clinical information, including history, physical exam and plan: Yes Notes (Text): 05/26/18 18:41 Attending note; Patient seen and examined with resident. Patient is a 22 year old female with past medical history of DM2, asthma, seasonal allergies, Hypothyroid, HTN, HLD, PTSD, borderline personality disorder , schizophrenia who presented to [facility] with auditory hallucinations that are telling her to commit suicide. Denies any diarrhea and urinary symptoms. Urine culture is negative. Stool for leukocyte is negative. stool for occult blood is negative. C. difficile was negative. Patient is tolerating diet. Self inflicted wound on the left forearm. No active bleeding. Started by mouth Keflex. bacitracin ointment. Diabetes ; continue metformin. Hypothyroidism; continue Synthroid. Active smoking smoking cessation is strongly advised. Started on NicoDerm patch. Currently denies alcohol and drug abuse. Leukocytosis; chronic. improved significantly.Patient is afebrile and nontoxic. UA is normal. procalcitonin is low. Patient is medically stable. Please reconsult as needed. 05/26/18 18:42 05/26/18 18:43
[2018-05-26] MEDS: PRAZOSIN 1 MG PO SCH (22:28)
[2018-05-27] MEDS: Pantoprazole 40 mg EC Tab PO SCH (06:30)
[2018-05-27 07:24] LABS: BASO # 0.03 K/mm3 (0.0-2.0); BASO % 0.2 % (0.0-3.0); EOS # 0.4 (0.0-0.7); EOS % 2.9 % (1.5-5.0); GRAN # 9.68 (1.4-6.5); GRAN % 68.9 % (50.0-68.0); HEMOGLOBIN 11.2 g/dL (12.0-16.0); LYMPH # 3.1 (1.2-3.4); MEAN CORPUSCULAR HEMOGLOBIN 24.9 pg (25.0-35.0); MEAN CORPUSCULAR HGB CONC 31.2 g/dl (31.0-37.0); MEAN PLATELET VOLUME 9.2 fl (7.0-11.0); MONO # 0.8 (0.1-0.6); RBC 4.49 10^6/uL (3.5-6.1); RED CELL DISTRIBUTION WIDTH 14.6 % (11.5-14.5); WHITE BLOOD COUNT 14.1 10^3/ul (4.5-11.0)
[2018-05-27] MEDS: Calcium-Vit D 250 mg-125 Units Tab UD PO SCH (09:49)
[2018-05-27] MEDS: Fluticasone Nasal 50 mcg/Spray NS SCH (09:52)
[2018-05-27] MEDS: Bacitracin Ointment 30 GM TUBE TOP SCH (09:52)
--- NOTE | 2018-05-27 10:32 | PCM.PYCHPN ---
Psychiatric Progress Note - Psychiatric Progress Note Patient seen today, length of contact: 30min Problems Identified/Issues Discussed: I reviewed recent staff notes, patient has been calmer and more predictable on the unit. I see her at bedside again this morning and her affect is a little brighter and more reactive. She continues to deny any new discomfort or pain. She is depressed and loja but indicates that she is feeling better, more hopeful. Her hallucinations have resolved and she denies any perceptual disturbance today. There have been no further attention-seeking behaviors and she denies having any SI/HI thoughts. She appears fairly groomed and comfortable. She is not in any discomfort or pain. Patient was started on 1:1 observation for "suicidal gesture" of scratching herself with a pencil eraser on Sunday after a conversation about discharge. This appeared attention-seeking as patient has been very future oriented during discussions with staff as well as the fact the patient was overheard discussing this admission as a possible secondary gain to get someone in trouble. Regardless the whole story is very unclear and patient does have a notable mental health issues and difficulty with impulse control. Whether her presentation is because of to primary or secondary axis symptoms (or likely BOTH ) she is still considered a danger to herself due to the severe maladaptiveness of her personality disorder--the acuity of this particular exacerbation is lessening at least in the past 24 hours. Diagnostic Results: pt suffers from severe borderline personality disorder r/o impulse control disorder ?bipolar disorder ?schizoaffective disorder h/o alcohol abuse polysubstance abuse and dependence neurocognitive deficit with executive functioning problems Medication Change: No ( ) Medical Record Reviewed: Yes Mental Status Examination - Cognitive Function Orientation: Person, Place, Situation Concentration: Poor Association: Loose Fund of Knowledge: WNL - Mood Mood: Depressed (pt reported to be depressed, but affect was full range) - Affect Affect: Broad, Other (labile and manipulative) - Speech Speech: Appropriate - Formal Thought Process Formal Thought Process: No Impairment, Other (self reported AH, but pt does not appear to be psychotic) - Suicidal Ideation Suicidal Ideation: No - Homicidal Ideation Homicidal Ideation: No Goal/Treatment Plan - Goal/Treatment Plan Need for Continued Stay: Other (pt needs to stay for observation) Progress Toward Problem(s) and Goals/Treatment Plan: c/w current tx and plan on the unit -thorazine 50 mg AM and 150 mg HS for reported hallucinations and impulse control -Prozac 40 mg po daily for depression and anxiety -Vistaril 50 mg po q8 prn: anxiety -[place] 600 mg po bid for mood stabilization 05/25/18 06:00 [place] 0.6 Patient should be further monitored due to severity of personality disorder. This provider also cannot discount the impact of her friends suicide (if this actually occurred). Tentative discharge date is 05/29/18. Vitals reviewed and noted below: Selected Entries 05/27/18 07:00 Temperature 97.5 F L Pulse Rate 78 Respiratory 20 Rate Blood Pressure 122/81 Appreciate f/u by Dr. Horne on 05/26/18~signed off as there are no acute medical issues. New floor labs noted below Laboratory Results - last 24 hr 05/26/18 05/27/18 14:02 07:00 WBC 14.1 H RBC 4.49 Hgb 11.2 L Hct 35.9 L MCV 80.0 MCH 24.9 L MCHC 31.2 RDW 14.6 H Plt Count 410 MPV 9.2 Gran % 68.9 H Lymph % (Auto) 22.0 Wise % (Auto) 6.0 Eos % (Auto) 2.9 Baso % (Auto) 0.2 Gran # 9.68 H Lymph # (Auto) 3.1 Wise # (Auto) 0.8 H Eos # (Auto) 0.4 Baso # (Auto) 0.03 Stool Occult Blood Negative Laboratory Results - last 24 hr 05/24/18 05/24/18 05/25/18 07:30 16:31 06:00 WBC RBC Hgb Hct MCV MCH MCHC RDW Plt Count MPV Sodium Potassium Chloride Carbon Dioxide Anion Gap BUN Creatinine Est GFR ( Amer) Est GFR (Non-Af Amer) POC Glucose (mg/dL) 223 H Random Glucose Calcium Phosphorus Magnesium Total Bilirubin AST ALT Alkaline Phosphatase Total Protein Albumin Globulin Albumin/Globulin Ratio [place] 0.6 RPR Nonreactive 05/25/18 05/25/18 06:00 06:00 WBC 14.7 H RBC 4.54 Hgb 11.4 L Hct 36.2 MCV 79.7 L MCH 25.1 MCHC 31.5 RDW 14.8 H Plt Count 430 MPV 9.6 Sodium 141 Potassium 4.2 Chloride 106 Carbon Dioxide 25 Anion Gap 15 BUN 8 Creatinine 0.5 L Est GFR ( Amer) > 60 Est GFR (Non-Af Amer) > 60 POC Glucose (mg/dL) Random Glucose 131 H Calcium 9.6 Phosphorus 4.0 Magnesium 1.8 Total Bilirubin 0.1 L AST 24 ALT 27 Alkaline Phosphatase 60 Total Protein 7.1 Albumin 4.0 Globulin 3.1 Albumin/Globulin Ratio 1.3 [place] RPR Estimated Date of D/C: 05/27/18
[2018-05-27] MEDS: PRAZOSIN 1 MG PO SCH (21:11)
[2018-05-28] MEDS: Pantoprazole 40 mg EC Tab PO SCH (06:30)
[2018-05-28 07:05] VITALS: BP 115/80; PULSE 75; TEMP 97.8
[2018-05-28] MEDS: Calcium-Vit D 250 mg-125 Units Tab UD PO SCH (09:05)
[2018-05-28] MEDS: Fluticasone Nasal 50 mcg/Spray NS SCH (09:07)
[2018-05-28] MEDS: Bacitracin Ointment 30 GM TUBE TOP SCH (09:08)
--- NOTE | 2018-05-28 11:17 | PCM.PYCHDC ---
Mental Status Examination - Mental Status Examination Orientation: Person, Place, Situation Memory: Intact Mood: Neutral Affect: Broad Speech: Appropriate Attention: WNL Concentration: WNL Association: WNL Fund of Knowledge: WNL Formal Thought Process: No Impairment Description of patient's judgement and insight: Improved and fair I/J Psychotic Thoughts and Behaviors: Denied AVH and paranoia, Delusions not elicited Suicidal Ideation: No Current Homicidal Ideation?: No Discharge Summary - Discharge Note Reason for Hospitalization: Ilya Felder is a 22 yo female with developmental disability , borderline personality disorder, hx of noncompliance, and ?schizoaffective disorder and multiple prior psych hospitalizations, who presented to the hospital for self reported suicidal ideation after pt got to know that her friend completed suicide. Psychiatric History (includes Medical, Family, Personal Hx): see hpi Laboratory Data: Laboratory Tests 05/23/18 05/23/18 05/23/18 22:50 22:50 22:50 WBC 17.8 H D RBC 4.51 Hgb 11.7 L Hct 35.6 L MCV 78.9 L MCH 25.9 MCHC 32.9 RDW 14.5 Plt Count 429 MPV 10.0 Gran % 74.9 H Lymph % (Auto) 18.2 L [place] % (Auto) 4.7 Eos % (Auto) 2.0 Baso % (Auto) 0.2 Gran # 13.32 H Lymph # (Auto) 3.2 [place] # (Auto) 0.8 H Eos # (Auto) 0.4 Baso # (Auto) 0.03 Sodium 138 Potassium 3.9 Chloride 103 Carbon Dioxide 20 L Anion Gap 18 BUN 6 L Creatinine 0.5 L Est GFR ( Amer) > 60 Est GFR (Non-Af Amer) > 60 POC Glucose (mg/dL) Random Glucose 127 H Fasting Glucose Calcium 9.6 Phosphorus Magnesium Total Bilirubin 0.2 AST 23 ALT 31 Alkaline Phosphatase 66 Total Protein 7.9 Albumin 4.5 Globulin 3.3 Albumin/Globulin Ratio 1.4 Triglycerides Cholesterol LDL Cholesterol Direct HDL Cholesterol Procalcitonin TSH 3rd Generation Urine Color Urine Appearance Urine pH Ur Specific [place] Urine Protein Urine Glucose (UA) Urine Ketones Urine Blood Urine Nitrate Urine Bilirubin Urine Urobilinogen Ur Leukocyte Esterase Urine RBC Urine WBC Ur Epithelial Cells Urine Bacteria Urine HCG, Qual Stool Occult Blood Stool Leukocytes, Qual Stool H. pylori Ag Salicylates < 1 L Urine Opiates Screen Urine Methadone Screen Acetaminophen < 10.0 L Ur Barbiturates Screen Ur Phencyclidine Scrn Ur Amphetamines Screen U Benzodiazepines Scrn [place] U Oth Cocaine Metabols U Cannabinoids Screen Alcohol, Quantitative RPR H. pylori Source 05/23/18 05/23/18 05/23/18 22:50 22:56 22:56 WBC RBC Hgb Hct MCV MCH MCHC RDW Plt Count MPV Gran % Lymph % (Auto) [place] % (Auto) Eos % (Auto) Baso % (Auto) Gran # Lymph # (Auto) [place] # (Auto) Eos # (Auto) Baso # (Auto) Sodium Potassium Chloride Carbon Dioxide Anion Gap BUN Creatinine Est GFR ( Amer) Est GFR (Non-Af Amer) POC Glucose (mg/dL) Random Glucose Fasting Glucose Calcium Phosphorus Magnesium Total Bilirubin AST ALT Alkaline Phosphatase Total Protein Albumin Globulin Albumin/Globulin Ratio Triglycerides Cholesterol LDL Cholesterol Direct HDL Cholesterol Procalcitonin TSH 3rd Generation Urine Color Yellow Urine Appearance Clear Urine pH 6.5 Ur Specific [place] 1.015 Urine Protein Negative Urine Glucose (UA) Negative Urine Ketones Negative Urine Blood Negative Urine Nitrate Negative Urine Bilirubin Negative Urine Urobilinogen 0.2 Ur Leukocyte Esterase Trace H Urine RBC 0 - 2 Urine WBC 1 - 3 Ur Epithelial Cells 1 - 3 Urine Bacteria Rare Urine HCG, Qual Negative Stool Occult Blood Stool Leukocytes, Qual Stool H. pylori Ag Salicylates Urine Opiates Screen Negative Urine Methadone Screen Negative Acetaminophen Ur Barbiturates Screen Negative Ur Phencyclidine Scrn Negative Ur Amphetamines Screen Negative U Benzodiazepines Scrn Negative [place] U Oth Cocaine Metabols Negative U Cannabinoids Screen Negative Alcohol, Quantitative < 10 RPR H. pylori Source 05/24/18 05/24/18 05/24/18 07:30 07:30 07:30 WBC RBC Hgb Hct MCV MCH MCHC RDW Plt Count MPV Gran % Lymph % (Auto) [place] % (Auto) Eos % (Auto) Baso % (Auto) Gran # Lymph # (Auto) [place] # (Auto) Eos # (Auto) Baso # (Auto) Sodium Potassium Chloride Carbon Dioxide Anion Gap BUN Creatinine Est GFR ( Amer) Est GFR (Non-Af Amer) POC Glucose (mg/dL) Random Glucose Fasting Glucose 139 H Calcium Phosphorus Magnesium Total Bilirubin AST ALT Alkaline Phosphatase Total Protein Albumin Globulin Albumin/Globulin Ratio Triglycerides 288 H Cholesterol 163 LDL Cholesterol Direct 91 HDL Cholesterol 38 Procalcitonin TSH 3rd Generation 4.96 H Urine Color Urine Appearance Urine pH Ur Specific [place] Urine Protein Urine Glucose (UA) Urine Ketones Urine Blood Urine Nitrate Urine Bilirubin Urine Urobilinogen Ur Leukocyte Esterase Urine RBC Urine WBC Ur Epithelial Cells Urine Bacteria Urine HCG, Qual Stool Occult Blood Stool Leukocytes, Qual Stool H. pylori Ag Salicylates Urine Opiates Screen Urine Methadone Screen Acetaminophen Ur Barbiturates Screen Ur Phencyclidine Scrn Ur Amphetamines Screen U Benzodiazepines Scrn [place] U Oth Cocaine Metabols U Cannabinoids Screen Alcohol, Quantitative RPR Nonreactive H. pylori Source 05/24/18 05/24/18 05/24/18 07:41 16:31 21:10 WBC RBC Hgb Hct MCV MCH MCHC RDW Plt Count MPV Gran % Lymph % (Auto) [place] % (Auto) Eos % (Auto) Baso % (Auto) Gran # Lymph # (Auto) [place] # (Auto) Eos # (Auto) Baso # (Auto) Sodium Potassium Chloride Carbon Dioxide Anion Gap BUN Creatinine Est GFR ( Amer) Est GFR (Non-Af Amer) POC Glucose (mg/dL) 123 H 223 H 150 H Random Glucose Fasting Glucose Calcium Phosphorus Magnesium Total Bilirubin AST ALT Alkaline Phosphatase Total Protein Albumin Globulin Albumin/Globulin Ratio Triglycerides Cholesterol LDL Cholesterol Direct HDL Cholesterol Procalcitonin TSH 3rd Generation Urine Color Urine Appearance Urine pH Ur Specific [place] Urine Protein Urine Glucose (UA) Urine Ketones Urine Blood Urine Nitrate Urine Bilirubin Urine Urobilinogen Ur Leukocyte Esterase Urine RBC Urine WBC Ur Epithelial Cells Urine Bacteria Urine HCG, Qual Stool Occult Blood Stool Leukocytes, Qual Stool H. pylori Ag Salicylates Urine Opiates Screen Urine Methadone Screen Acetaminophen Ur Barbiturates Screen Ur Phencyclidine Scrn Ur Amphetamines Screen U Benzodiazepines Scrn [place] U Oth Cocaine Metabols U Cannabinoids Screen Alcohol, Quantitative RPR H. pylori Source 05/25/18 05/25/18 05/25/18 06:00 06:00 06:00 WBC 14.7 H RBC 4.54 Hgb 11.4 L Hct 36.2 MCV 79.7 L MCH 25.1 MCHC 31.5 RDW 14.8 H Plt Count 430 MPV 9.6 Gran % Lymph % (Auto) [place] % (Auto) Eos % (Auto) Baso % (Auto) Gran # Lymph # (Auto) [place] # (Auto) Eos # (Auto) Baso # (Auto) Sodium 141 Potassium 4.2 Chloride 106 Carbon Dioxide 25 Anion Gap 15 BUN 8 Creatinine 0.5 L Est GFR ( Amer) > 60 Est GFR (Non-Af Amer) > 60 POC Glucose (mg/dL) Random Glucose 131 H Fasting Glucose Calcium 9.6 Phosphorus 4.0 Magnesium 1.8 Total Bilirubin 0.1 L AST 24 ALT 27 Alkaline Phosphatase 60 Total Protein 7.1 Albumin 4.0 Globulin 3.1 Albumin/Globulin Ratio 1.3 Triglycerides Cholesterol LDL Cholesterol Direct HDL Cholesterol Procalcitonin TSH 3rd Generation Urine Color Urine Appearance Urine pH Ur Specific [place] Urine Protein Urine Glucose (UA) Urine Ketones Urine Blood Urine Nitrate Urine Bilirubin Urine Urobilinogen Ur Leukocyte Esterase Urine RBC Urine WBC Ur Epithelial Cells Urine Bacteria Urine HCG, Qual Stool Occult Blood Stool Leukocytes, Qual Stool H. pylori Ag Salicylates Urine Opiates Screen Urine Methadone Screen Acetaminophen Ur Barbiturates Screen Ur Phencyclidine Scrn Ur Amphetamines Screen U Benzodiazepines Scrn [place] 0.6 U Oth Cocaine Metabols U Cannabinoids Screen Alcohol, Quantitative RPR H. pylori Source 05/25/18 05/25/18 05/25/18 07:37 11:18 12:00 WBC RBC Hgb Hct MCV MCH MCHC RDW Plt Count MPV Gran % Lymph % (Auto) [place] % (Auto) Eos % (Auto) Baso % (Auto) Gran # Lymph # (Auto) [place] # (Auto) Eos # (Auto) Baso # (Auto) Sodium Potassium Chloride Carbon Dioxide Anion Gap BUN Creatinine Est GFR ( Amer) Est GFR (Non-Af Amer) POC Glucose (mg/dL) 129 H 100 Random Glucose Fasting Glucose Calcium Phosphorus Magnesium Total Bilirubin AST ALT Alkaline Phosphatase Total Protein Albumin Globulin Albumin/Globulin Ratio Triglycerides Cholesterol LDL Cholesterol Direct HDL Cholesterol Procalcitonin TSH 3rd Generation Urine Color Urine Appearance Urine pH Ur Specific [place] Urine Protein Urine Glucose (UA) Urine Ketones Urine Blood Urine Nitrate Urine Bilirubin Urine Urobilinogen Ur Leukocyte Esterase Urine RBC Urine WBC Ur Epithelial Cells Urine Bacteria Urine HCG, Qual Stool Occult Blood Stool Leukocytes, Qual Negative Stool H. pylori Ag Salicylates Urine Opiates Screen Urine Methadone Screen Acetaminophen Ur Barbiturates Screen Ur Phencyclidine Scrn Ur Amphetamines Screen U Benzodiazepines Scrn [place] U Oth Cocaine Metabols U Cannabinoids Screen Alcohol, Quantitative RPR H. pylori Source 05/25/18 05/25/18 05/25/18 12:30 12:35 16:29 WBC RBC Hgb Hct MCV MCH MCHC RDW Plt Count MPV Gran % Lymph % (Auto) [place] % (Auto) Eos % (Auto) Baso % (Auto) Gran # Lymph # (Auto) [place] # (Auto) Eos # (Auto) Baso # (Auto) Sodium Potassium Chloride Carbon Dioxide Anion Gap BUN Creatinine Est GFR ( Amer) Est GFR (Non-Af Amer) POC Glucose (mg/dL) 65 Random Glucose Fasting Glucose Calcium Phosphorus Magnesium Total Bilirubin AST ALT Alkaline Phosphatase Total Protein Albumin Globulin Albumin/Globulin Ratio Triglycerides Cholesterol LDL Cholesterol Direct HDL Cholesterol Procalcitonin < 0.05 L TSH 3rd Generation Urine Color Urine Appearance Urine pH Ur Specific [place] Urine Protein Urine Glucose (UA) Urine Ketones Urine Blood Urine Nitrate Urine Bilirubin Urine Urobilinogen Ur Leukocyte Esterase Urine RBC Urine WBC Ur Epithelial Cells Urine Bacteria Urine HCG, Qual Stool Occult Blood Stool Leukocytes, Qual Stool H. pylori Ag Not detected Salicylates Urine Opiates Screen Urine Methadone Screen Acetaminophen Ur Barbiturates Screen Ur Phencyclidine Scrn Ur Amphetamines Screen U Benzodiazepines Scrn [place] U Oth Cocaine Metabols U Cannabinoids Screen Alcohol, Quantitative RPR H. pylori Source Stool 05/25/18 05/25/18 05/26/18 17:11 22:13 07:23 WBC RBC Hgb Hct MCV MCH MCHC RDW Plt Count MPV Gran % Lymph % (Auto) [place] % (Auto) Eos % (Auto) Baso % (Auto) Gran # Lymph # (Auto) [place] # (Auto) Eos # (Auto) Baso # (Auto) Sodium Potassium Chloride Carbon Dioxide Anion Gap BUN Creatinine Est GFR ( Amer) Est GFR (Non-Af Amer) POC Glucose (mg/dL) 129 H 153 H 114 H Random Glucose Fasting Glucose Calcium Phosphorus Magnesium Total Bilirubin AST ALT Alkaline Phosphatase Total Protein Albumin Globulin Albumin/Globulin Ratio Triglycerides Cholesterol LDL Cholesterol Direct HDL Cholesterol Procalcitonin TSH 3rd Generation Urine Color Urine Appearance Urine pH Ur Specific [place] Urine Protein Urine Glucose (UA) Urine Ketones Urine Blood Urine Nitrate Urine Bilirubin Urine Urobilinogen Ur Leukocyte Esterase Urine RBC Urine WBC Ur Epithelial Cells Urine Bacteria Urine HCG, Qual Stool Occult Blood Stool Leukocytes, Qual Stool H. pylori Ag Salicylates Urine Opiates Screen Urine Methadone Screen Acetaminophen Ur Barbiturates Screen Ur Phencyclidine Scrn Ur Amphetamines Screen U Benzodiazepines Scrn [place] U Oth Cocaine Metabols U Cannabinoids Screen Alcohol, Quantitative RPR H. pylori Source 05/26/18 05/26/18 05/26/18 11:45 14:02 16:09 WBC RBC Hgb Hct MCV MCH MCHC RDW Plt Count MPV Gran % Lymph % (Auto) [place] % (Auto) Eos % (Auto) Baso % (Auto) Gran # Lymph # (Auto) [place] # (Auto) Eos # (Auto) Baso # (Auto) Sodium Potassium Chloride Carbon Dioxide Anion Gap BUN Creatinine Est GFR ( Amer) Est GFR (Non-Af Amer) POC Glucose (mg/dL) 115 H 160 H Random Glucose Fasting Glucose Calcium Phosphorus Magnesium Total Bilirubin AST ALT Alkaline Phosphatase Total Protein Albumin Globulin Albumin/Globulin Ratio Triglycerides Cholesterol LDL Cholesterol Direct HDL Cholesterol Procalcitonin TSH 3rd Generation Urine Color Urine Appearance Urine pH Ur Specific [place] Urine Protein Urine Glucose (UA) Urine Ketones Urine Blood Urine Nitrate Urine Bilirubin Urine Urobilinogen Ur Leukocyte Esterase Urine RBC Urine WBC Ur Epithelial Cells Urine Bacteria Urine HCG, Qual Stool Occult Blood Negative Stool Leukocytes, Qual Stool H. pylori Ag Salicylates Urine Opiates Screen Urine Methadone Screen Acetaminophen Ur Barbiturates Screen Ur Phencyclidine Scrn Ur Amphetamines Screen U Benzodiazepines Scrn [place] U Oth Cocaine Metabols U Cannabinoids Screen Alcohol, Quantitative RPR H. pylori Source 05/26/18 05/27/18 05/27/18 21:21 07:00 07:59 WBC 14.1 H RBC 4.49 Hgb 11.2 L Hct 35.9 L MCV 80.0 MCH 24.9 L MCHC 31.2 RDW 14.6 H Plt Count 410 MPV 9.2 Gran % 68.9 H Lymph % (Auto) 22.0 [place] % (Auto) 6.0 Eos % (Auto) 2.9 Baso % (Auto) 0.2 Gran # 9.68 H Lymph # (Auto) 3.1 [place] # (Auto) 0.8 H Eos # (Auto) 0.4 Baso # (Auto) 0.03 Sodium Potassium Chloride Carbon Dioxide Anion Gap BUN Creatinine Est GFR ( Amer) Est GFR (Non-Af Amer) POC Glucose (mg/dL) 128 H 107 Random Glucose Fasting Glucose Calcium Phosphorus Magnesium Total Bilirubin AST ALT Alkaline Phosphatase Total Protein Albumin Globulin Albumin/Globulin Ratio Triglycerides Cholesterol LDL Cholesterol Direct HDL Cholesterol Procalcitonin TSH 3rd Generation Urine Color Urine Appearance Urine pH Ur Specific [place] Urine Protein Urine Glucose (UA) Urine Ketones Urine Blood Urine Nitrate Urine Bilirubin Urine Urobilinogen Ur Leukocyte Esterase Urine RBC Urine WBC Ur Epithelial Cells Urine Bacteria Urine HCG, Qual Stool Occult Blood Stool Leukocytes, Qual Stool H. pylori Ag Salicylates Urine Opiates Screen Urine Methadone Screen Acetaminophen Ur Barbiturates Screen Ur Phencyclidine Scrn Ur Amphetamines Screen U Benzodiazepines Scrn [place] U Oth Cocaine Metabols U Cannabinoids Screen Alcohol, Quantitative RPR H. pylori Source 05/27/18 05/27/18 05/27/18 11:56 16:12 21:08 WBC RBC Hgb Hct MCV MCH MCHC RDW Plt Count MPV Gran % Lymph % (Auto) [place] % (Auto) Eos % (Auto) Baso % (Auto) Gran # Lymph # (Auto) [place] # (Auto) Eos # (Auto) Baso # (Auto) Sodium Potassium Chloride Carbon Dioxide Anion Gap BUN Creatinine Est GFR ( Amer) Est GFR (Non-Af Amer) POC Glucose (mg/dL) 158 H 115 H 136 H Random Glucose Fasting Glucose Calcium Phosphorus Magnesium Total Bilirubin AST ALT Alkaline Phosphatase Total Protein Albumin Globulin Albumin/Globulin Ratio Triglycerides Cholesterol LDL Cholesterol Direct HDL Cholesterol Procalcitonin TSH 3rd Generation Urine Color Urine Appearance Urine pH Ur Specific [place] Urine Protein Urine Glucose (UA) Urine Ketones Urine Blood Urine Nitrate Urine Bilirubin Urine Urobilinogen Ur Leukocyte Esterase Urine RBC Urine WBC Ur Epithelial Cells Urine Bacteria Urine HCG, Qual Stool Occult Blood Stool Leukocytes, Qual Stool H. pylori Ag Salicylates Urine Opiates Screen Urine Methadone Screen Acetaminophen Ur Barbiturates Screen Ur Phencyclidine Scrn Ur Amphetamines Screen U Benzodiazepines Scrn [place] U Oth Cocaine Metabols U Cannabinoids Screen Alcohol, Quantitative RPR H. pylori Source Abnormal Lab Results 05/24/18 05/25/18 05/25/18 21:10 07:37 11:18 POC Glucose (mg/dL) 150 H 129 H 100 Stool H. pylori Ag H. pylori Source 05/25/18 05/25/18 05/25/18 12:35 16:29 17:11 POC Glucose (mg/dL) 65 129 H Stool H. pylori Ag Not detected H. pylori Source Stool 05/25/18 05/26/18 05/26/18 22:13 07:23 11:45 POC Glucose (mg/dL) 153 H 114 H 115 H Stool H. pylori Ag H. pylori Source 05/26/18 05/26/18 05/27/18 16:09 21:21 07:59 POC Glucose (mg/dL) 160 H 128 H 107 Stool H. pylori Ag H. pylori Source 05/27/18 05/27/18 05/27/18 11:56 16:12 21:08 POC Glucose (mg/dL) 158 H 115 H 136 H Stool H. pylori Ag H. pylori Source Consultations:: List each consultation separately and include: 1. Reason for request. 2. Findings. 3. Follow-up Consultations: Seen by Dr. Miranda on 05/24/18 Appreciate f/u by Dr. Horne on 05/26/18~signed off as there are no acute medical issues. Summary of Hospital Course include:: 1. Description of specific treatment plan utilized for patients during their course of treatmen. 2. Summarize the time- course for resolution of acute symptoms and/or regressed behaviors. 3. Describe issues identified and worked on during hospitalization. 4. Describe medication utilized. 5. Describe medical problems identified and treated. 6. Reassessment of suicide risk Summary of Hospital Course: Ilya Felder is a 22 yo female with developmental disability , borderline personality disorder, hx of noncompliance, and ?schizoaffective disorder and multiple prior psych hospitalizations, this video game script writer very familiar with this pt from the last admission which took place here in [facility] less than two weeks ago, please see Initial Evaluation note 05/03/18 for detailed information. pt presented to the hospital for self reported suicidal ideation after pt got to know that her friend completed suicide. pt was seen and examined, discussed with staff, med list requested and meds resumed. pt was seen at the treatment team meeting, pt presented with very good personal hygiene, excellent ADLs. patient has very nice hair style, purple yuli which were matching with her nail [place]. pt has affective reactivity, seems to happy to see this video game script writer. pt presented to be dramatic, said that yesterday she got to know that her girlfriend committed suicide, called her mother and mother advised her to come to the hospital. pt said that she was doing "very well", prior yesterday, pt was compliant with meds and follow up appts, pt now is not fixated that staff mistreating her. pt reported that she tolerates medications well, no side effects observed or reported, aims 0, no EPS. Collater[place] were [place] [facility] by match up worker, [place] per [place] [facility] patient was behaving well, no disrespectful or aggressive behavior, patient was [place] with [place] [facility] rules [place] regulations, no behavioral disturbances, pt did not try to run away. (of note last admission pt was running away from the [place] [facility], was not compliant with meds, was oppositional) . pt has tendency of saying that she hears voices, but obviously did not present to be psychotic or responding to internal stimuli. Medical h/o: T2DM, GERD, environmental allergies, leukocytosis, med consult called. Past psych h/o: previous psych admission last month [facility], see notes, before that 04/17/18 [place] for suicidal ideation and auditory hallucinations. According to medical records, she was uncooperative and refused to take medications. She signed a 48 hr notice but was transferred to [facility] and later discharged back to her [place] [facility]. Prior to this, the patient was in [facility] for 3 months awaiting placement. She then started living in the [place] [facility] in February. The patient states that she has been in and out of psychiatric care since she was 6 yo. She also was in and out of foster care as a child. She reports being homeless from [age] yo. She had a baby at 15 yo who was given up for adoption. Despite this, she managed to finish high school. She currently sees an outpatient psychiatrist monthly, [facility] med list in chart. FH: unknown pt's mother was involved last admission. SH: Xander in [facility] who lives with his parents DDD worker Janine Unemployed- receives [employer] diploma Tobacco- 2 ppd cigarettes Denies current alcohol and illicit drugs- reports last used drugs a year and a half ago to get high but still has cravings Patient was started on 1:1 observation for "suicidal gesture" of scratching herself with a pencil eraser on Sunday05/25/18 after a conversation about discharge. This appeared attention-seeking as patient has been very future oriented during discussions with staff as well as the fact the patient was overheard discussing this admission as a possible secondary gain to get someone in trouble. 1:1 was discontinued on 05/27/18 without any further incidents. Patient remained in good control thereafter until her discharge on Sunday. Discharge note on 05/28/18 I interviewed patient at bedside to assess stability for discharge after I was informed by staff that patient reported that she was feeling improved enough and requested discharge by today. Patient is alert and well-oriented to month, year and circumstances. Eye contact and grooming are good. Patient feels improved and denies any suicidal thoughts or thoughts to harm others. Affect is calm and appropriately reactive. Patient denies hallucinations and is not responding to internal stimuli. Thought process is clear and coherent. Patient feels comfortable with discharge today and denies any new concerns. Denies acute discomfort or pain. Tolerating medications and denies any issues with them. Delusions and paranoia were not elicited on day of discharge. - Final Diagnosis (DSM 5) Condition upon Discharge: FAIR DSM 5: pt suffers from severe borderline personality disorder r/o impulse control disorder ?bipolar disorder ?schizoaffective disorder h/o alcohol abuse polysubstance abuse and dependence neurocognitive deficit with executive functioning problems Disposition: HOME/ ROUTINE Follow-up Treatment Plan: I phoned [facility] at [phone] at 11:05 am on 05/28/18 and confirmed that patient was dispensed a 30 day supply of the following medications on . -thorazine 50 mg AM and 150 mg HS for reported hallucinations and impulse control -Prozac 40 mg po daily for depression and anxiety -Vistaril 50 mg po q12 prn: anxiety -[place] 600 mg po bid for mood stabilization 05/25/18 06:00 [place] 0.6 Please refer to SW note for further aftercare information. Laboratory Results - last 24 hr 05/26/18 05/27/18 14:02 07:00 WBC 14.1 H RBC 4.49 Hgb 11.2 L Hct 35.9 L MCV 80.0 MCH 24.9 L MCHC 31.2 RDW 14.6 H Plt Count 410 MPV 9.2 Gran % 68.9 H Lymph % (Auto) 22.0 [place] % (Auto) 6.0 Eos % (Auto) 2.9 Baso % (Auto) 0.2 Gran # 9.68 H Lymph # (Auto) 3.1 [place] # (Auto) 0.8 H Eos # (Auto) 0.4 Baso # (Auto) 0.03 Stool Occult Blood Negative Laboratory Results - last 24 hr 05/24/18 05/24/18 05/25/18 07:30 16:31 06:00 WBC RBC Hgb Hct MCV MCH MCHC RDW Plt Count MPV Sodium Potassium Chloride Carbon Dioxide Anion Gap BUN Creatinine Est GFR ( Amer) Est GFR (Non-Af Amer) POC Glucose (mg/dL) 223 H Random Glucose Calcium Phosphorus Magnesium Total Bilirubin AST ALT Alkaline Phosphatase Total Protein Albumin Globulin Albumin/Globulin Ratio [place] 0.6 RPR Nonreactive 05/25/18 05/25/18 06:00 06:00 WBC 14.7 H RBC 4.54 Hgb 11.4 L Hct 36.2 MCV 79.7 L MCH 25.1 MCHC 31.5 RDW 14.8 H Plt Count 430 MPV 9.6 Sodium 141 Potassium 4.2 Chloride 106 Carbon Dioxide 25 Anion Gap 15 BUN 8 Creatinine 0.5 L Est GFR ( Amer) > 60 Est GFR (Non-Af Amer) > 60 POC Glucose (mg/dL) Random Glucose 131 H Calcium 9.6 Phosphorus 4.0 Magnesium 1.8 Total Bilirubin 0.1 L AST 24 ALT 27 Alkaline Phosphatase 60 Total Protein 7.1 Albumin 4.0 Globulin 3.1 Albumin/Globulin Ratio 1.3 [place] RPR - Smoking Cessation Smoking Cessation Medication prescribed: Yes Reason for not providing: Patient deferred - Antipsychotic Medications Pt discharged on 2 or more routine antipsychotic medications: No
== END 2018-05-28 12:58 | disposition home or self-care (01) | DRG 428 ==
LOC: ED 22:06 → ERH 05-24 04:47 → PSYC 05-24 05:17
PROVIDERS: ADMIT Psychiatry & Neurology Psychiatry; ATTEND Psychiatry & Neurology Psychiatry
DX: F60.3 Borderline personality disorder (principal); F19.20 Other psychoactive substance dependence, uncomplicated; F31.9 Bipolar disorder, unspecified; F25.9 Schizoaffective disorder, unspecified; F43.10 Post-traumatic stress disorder, unspecified; E03.9 Hypothyroidism, unspecified; E11.9 Type 2 diabetes mellitus without complications; E78.5 Hyperlipidemia, unspecified; F17.210 Nicotine dependence, cigarettes, uncomplicated; G47.33 Obstructive sleep apnea (adult) (pediatric); I10 Essential (primary) hypertension; J45.909 Unspecified asthma, uncomplicated; G47.00 Insomnia, unspecified; K21.9 Gastro-esophageal reflux disease without esophagitis; E66.9 Obesity, unspecified; Z79.84 Long term (current) use of oral hypoglycemic drugs; Z91.19 Patient's noncompliance with other medical treatment and regimen

== ENCOUNTER 2018-06-18 20:49 | Emergency (ER) | payer MEDICAID ==
[2018-06-18 20:54] VITALS: BMI 38.0
[2018-06-18 22:04] LABS: BASO # 0.02 K/mm3 (0.0-2.0); BASO % 0.1 % (0.0-3.0); EOS # 0.3 (0.0-0.7); EOS % 1.9 % (1.5-5.0); GRAN # 11.44 (1.4-6.5); LYMPH # 2.9 (1.2-3.4); LYMPH % 18.9 % (22.0-35.0); MEAN CELL VOLUME 76.9 fl (80.0-105.0); MEAN CORPUSCULAR HEMOGLOBIN 25.4 pg (25.0-35.0); MEAN PLATELET VOLUME 9.3 fl (7.0-11.0); MONO # 0.6 (0.1-0.6); MONO % 4.1 % (1.0-6.0); RBC 4.33 10^6/uL (3.5-6.1); RED CELL DISTRIBUTION WIDTH 14.4 % (11.5-14.5); WHITE BLOOD COUNT 15.3 10^3/ul (4.5-11.0)
[2018-06-18 22:11] LABS: URINE BILIRUBIN NEGATIVE (NEGATIVE); URINE BLOOD NEGATIVE (NEGATIVE); URINE GLUCOSE (UA) NEGATIVE (NEGATIVE); URINE LEUKOCYTE ESTERASE SMALL Leu/uL (NEGATIVE); URINE PROTEIN TRACE mg/dL (<30 mg/dL); URINE UROBILINOGEN 0.2 E.U./dL (<1 E.U./dL)
[2018-06-18 22:14] LABS: URINE APPEARANCE CLEAR (CLEAR); URINE COLOR YELLOW (YELLOW)
[2018-06-18 22:20] LABS: ACETAMINOPHEN < 10.0 ug/ml (10.0-20.0); SALICYLATE < 1 mg/dL (2.0-20.0)
[2018-06-18 22:25] LABS: ALB/GLOB RATIO 1.5 (1.1-1.8); ALBUMIN 4.2 g/dL (3.0-4.8); ALT/SGPT 38 U/L (7-56); AST/SGOT 32 U/L (14-36); BLOOD UREA NITROGEN 8 mg/dL (7-21); CALCIUM 9.6 mg/dL (8.4-10.5); GFR NON-AFRICAN AMERICAN > 60
[2018-06-18 22:26] LABS: URINE BACTERIA MANY (NEG)
[2018-06-18 22:46] LABS: PHENCYCLIDINE, UR NEGATIVE (NEGATIVE)
[2018-06-18 22:47] LABS: BARBITURATES, UR NEGATIVE (NEGATIVE); BENZODIAZEPINES, UR NEGATIVE (NEGATIVE); OPIATES, UR NEGATIVE (NEGATIVE)
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
[2018-06-19 08:35] VITALS: BP 116/72; PULSE 70; TEMP 97.5; O2SAT 98
[2018-06-19 08:36] VITALS: RESP 16
--- NOTE | 2018-06-19 11:57 | RAD ---
Date of service: 06/18/2018 HISTORY: pes eval COMPARISON: 05/24/2018 FINDINGS: LUNGS: No active pulmonary disease. PLEURA: No significant pleural effusion identified, no pneumothorax apparent. CARDIOVASCULAR: Normal. OSSEOUS STRUCTURES: No significant abnormalities. VISUALIZED UPPER ABDOMEN: Normal. OTHER FINDINGS: None. IMPRESSION: No active disease.
--- NOTE | 2018-06-19 15:40 | CARD ---
APPROVED REPORT Date of service: 06/18/2018 EKG Measurement Heart [id number] ID [id number] <Conclusion> Sinus tachycardia Moderate voltage criteria for LVH, may be normal variant Borderline ECG
== END 2018-06-19 08:36 | disposition home or self-care (01) ==
LOC: ED 20:49
DX: N39.0 Urinary tract infection, site not specified (principal); F31.9 Bipolar disorder, unspecified; F60.3 Borderline personality disorder; Z76.5 Malingerer [conscious simulation]; I10 Essential (primary) hypertension; E11.9 Type 2 diabetes mellitus without complications; Z79.4 Long term (current) use of insulin; E03.9 Hypothyroidism, unspecified; F17.210 Nicotine dependence, cigarettes, uncomplicated

== ENCOUNTER 2018-06-23 14:14 | Inpatient (IN) | payer MEDICAID ==
[2018-06-23 14:14] VITALS: BMI 38.0
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
[2018-06-23 15:13] LABS: PH,URINE 6.5 (4.7-8.0); URINE BILIRUBIN NEGATIVE (NEGATIVE); URINE BLOOD NEGATIVE (NEGATIVE); URINE GLUCOSE (UA) NEGATIVE (NEGATIVE); URINE LEUKOCYTE ESTERASE TRACE Leu/uL (NEGATIVE); URINE PROTEIN NEGATIVE mg/dL (<30 mg/dL); URINE UROBILINOGEN 0.2 E.U./dL (<1 E.U./dL)
[2018-06-23 15:15] LABS: BASO # 0.03 K/mm3 (0.0-2.0); BASO % 0.2 % (0.0-3.0); EOS # 0.3 (0.0-0.7); EOS % 1.8 % (1.5-5.0); GRAN # 12.41 (1.4-6.5); GRAN % 76.6 % (50.0-68.0); LYMPH # 2.6 (1.2-3.4); LYMPH % 16.3 % (22.0-35.0); MEAN CELL VOLUME 79.3 fl (80.0-105.0); MEAN CORPUSCULAR HEMOGLOBIN 24.8 pg (25.0-35.0); MEAN CORPUSCULAR HGB CONC 31.3 g/dl (31.0-37.0); MEAN PLATELET VOLUME 9.6 fl (7.0-11.0); MONO # 0.8 (0.1-0.6); MONO % 5.1 % (1.0-6.0); RBC 4.44 10^6/uL (3.5-6.1); WHITE BLOOD COUNT 16.2 10^3/ul (4.5-11.0)
[2018-06-23 15:17] LABS: ALB/GLOB RATIO 1.4 (1.1-1.8); ALBUMIN 4.4 g/dL (3.0-4.8); ALT/SGPT 32 U/L (7-56); AST/SGOT 27 U/L (14-36); BLOOD UREA NITROGEN 9 mg/dL (7-21); CALCIUM 9.5 mg/dL (8.4-10.5); GFR NON-AFRICAN AMERICAN > 60; URINE APPEARANCE CLEAR (CLEAR); URINE COLOR YELLOW (YELLOW)
[2018-06-23 15:19] LABS: ACETAMINOPHEN < 10.0 ug/ml (10.0-20.0); SALICYLATE < 1 mg/dL (2.0-20.0)
[2018-06-23 15:25] LABS: PHENCYCLIDINE, UR NEGATIVE (NEGATIVE)
[2018-06-23 15:30] LABS: URINE BACTERIA MANY (NEG); URINE RBC 0 - 2 /hpf (0-2)
[2018-06-23 15:31] LABS: BARBITURATES, UR NEGATIVE (NEGATIVE); BENZODIAZEPINES, UR NEGATIVE (NEGATIVE); OPIATES, UR NEGATIVE (NEGATIVE)
[2018-06-23] MEDS ORDERED: Dextrose 50% SYRINGE Inj (50 ml) IV PRN (20:37)
[2018-06-23] MEDS: Insulin Lispro (humaLOG) LOW Coverage SC SCH (23:25)
[2018-06-24] MEDS ORDERED: Pantoprazole 20 mg EC Tab PO SCH (06:00)
--- NOTE | 2018-06-24 06:43 | PCM.BM ---
<Stephon Mcdowell O - Last Filed: 06/24/18 06:41> Treatment Plan Problems - Problems identified on initial assessmt Hopelessness Date Initiated: 06/23/18 Time Initiated: 22:45 Assessment reference: NA Status: Active non compliance with medication Date Initiated: 06/23/18 Time Initiated: 22:45 Assessment reference: NA Status: Active Treatment assets and liabiliti Patient Assests: adapts well, cooperative, ADL independent, negotiates basic needs, good interpersonal skills Patient Liabilities: financial problems, poor support system, medical problems - Milieu Protocol Maintain good personal hygiene: daily Encourage regular showers, daily Remind patient to perform daily oral care, daily Assist patient to perform ADL's Maintain personal safety: daily Educate patient to report safety concerns to staff, daily Monitor environment for contraband/sharps Medication safety: Monitor for expected outcome, potential side effects: daily, Assess barriers to learning: daily, Assess readiness for medication education: daily Family Contact Family involvement: Patient does not wish Family/SO involvement Discharge/Continuing Care - Education Needs Education Needs: Patient Medication, Patient Diagnosis/Disease Process, Patient Coping Skills, Patient Anger Management skills, Patient Placement options, Patient Activities of Daily Living - Discharge Discharge Criteria: Free of Suicidal thoughts <Ngozi Gallo A - Last Filed: 06/24/18 16:05> - Diagnosis (1) Depression Status: Acute Interventions: 06/24/18 16:05 Psychoeducation Psychopharmacology/adjustment of medications as needed/ monitoring possible side effects Evaluate pt on daily basis Compliance with medications and follow up appointments Suicide and homicide risk assessment and prevention Relapse prevention Reduction of symptoms Improve functional status Family involvement As outpatient: cognitive behavioral therapy (2) Neurocognitive disorder Status: Acute Interventions: 06/24/18 16:06 Additional consultation by specialists as needed Lab work as needed (CBC, CMP, TSH, free T4, UA, Urine test for females as needed) CXR as needed EKG Physical therapy evaluation as needed behavioral modification as outpatient (3) PTSD (post-traumatic stress disorder) Status: Chronic Interventions: 06/24/18 16:06 Psychoeducation Psychopharmacology/adjustment of medications as needed/ monitoring possible side effects Evaluate pt on daily basis Discussion of importance of being compliant with medications and follow up appointments Suicide and homicide risk assessment and prevention, coping strategies, safety plan Reduction of symptoms Relaxation techniques and breathing exercises Improve functional status Family involvement Cognitive behavioral therapy as outpatient <Jocelyn Senior Y - Last Filed: 06/24/18 16:15> Family Contact Family involvement: Famliy/SO not involved - Outside Agency [facility] Care involvment: Following patient during stay, Information-sharing Agency contact name: Yue Menjivar, [employer] Agency contact number: C:[phone] H:[phone] [facility] Care involvment: Following patient during stay, Information-sharing Agency contact name: Janine GÓMEZ, case filler Agency contact number: [phone]
[2018-06-24 07:17] VITALS: RESP 20
[2018-06-24 07:53] LABS: GLUCOSE,FASTING 129 mg/dL (65-110); HDL CHOLESTEROL 36 mg/dL (29-60)
[2018-06-24] MEDS ORDERED: FLUoxetine Elix 20 MG/5 ML PO SCH (08:00)
[2018-06-24 08:04] LABS: LDL CHOLESTEROL 82 mg/dL (0-129)
[2018-06-24] MEDS: Insulin Lispro (humaLOG) LOW Coverage SC SCH ×4 (08:26→21:24)
[2018-06-24 08:51] LABS: HEMOGLOBIN 11.1 g/dL (12.0-16.0); MEAN CELL VOLUME 79.9 fl (80.0-105.0); MEAN CORPUSCULAR HEMOGLOBIN 25.1 pg (25.0-35.0); MEAN CORPUSCULAR HGB CONC 31.4 g/dl (31.0-37.0); MEAN PLATELET VOLUME 9.4 fl (7.0-11.0); RBC 4.42 10^6/uL (3.5-6.1); RED CELL DISTRIBUTION WIDTH 15.2 % (11.5-14.5); WHITE BLOOD COUNT 12.1 10^3/ul (4.5-11.0)
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
--- NOTE | 2018-06-24 15:58 | CARD ---
APPROVED REPORT Date of service: 06/23/2018 EKG Measurement Heart [id number] <Conclusion> Sinus tachycardia Moderate voltage criteria for LVH, may be normal variant Borderline ECG
[2018-06-24] MEDS ORDERED: [UNRECOGNIZED DRUG - SUPPLY] IH PRN (16:02)
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
[2018-06-24] MEDS ORDERED: Albuterol 0.083% Inhal Sol (2.5 mg/3 mL) UD INH PRN (16:06)
[2018-06-24] MEDS ORDERED: CALCIUM ANTACID PO PRN (16:22)
[2018-06-24] MEDS ORDERED: TRIMETHOBENZAMIDE 300 MG PO PRN (16:23)
--- NOTE | 2018-06-24 16:44 | CT ---
Date of service: 06/24/2018 PROCEDURE: CT Abdomen and Pelvis with Oral contrast. HISTORY: abdominal pain COMPARISON: Comparison is made to the previous study dated 05/04/2018 TECHNIQUE: Contiguous axial images of the abdomen and pelvis. Oral contrast was administered. No IV contrast given. Coronal and Sagittal reformats generated. Radiation dose: Total exam DLP = 1091.49 mGy-cm. This CT exam was performed using one or more of the following dose reduction techniques: Automated exposure control, adjustment of the mA and/or kV according to patient size, and/or use of iterative reconstruction technique. FINDINGS: LOWER THORAX: Unremarkable. LIVER: Hepatomegaly and [id number] hepatic steatosis is noted. GALLBLADDER AND BILE DUCTS: Unremarkable. PANCREAS: Unremarkable. No mass. No ductal dilatation. SPLEEN: Unremarkable. No splenomegaly. ADRENALS: Unremarkable. KIDNEYS AND URETERS: Unremarkable. No stone or hydronephrosis. BLADDER: Mild urinary bladder wall thickening is noted. REPRODUCTIVE: Unremarkable. APPENDIX: No evidence of appendicitis. BOWEL: Unremarkable. No obstruction. No gross mural thickening. PERITONEUM: Unremarkable. No fluid collection. No free air. LYMPH NODES: Mildly enlarged mesenteric lymph nodes noted suspicious for mesenteric adenitis. VASCULATURE: Unremarkable. No aortic aneurysm. BONES: No fracture or destructive lesion. OTHER FINDINGS: None. IMPRESSION: Mild urinary bladder wall thickening. Mildly enlarged mesenteric lymph nodes suspicious for mesenteric adenitis. No evidence of cholecystitis pancreatitis or appendicitis.
[2018-06-24] MEDS: Ciprofloxacin/Dexamethasone OTIC SUSP AS SCH (17:25)
[2018-06-24] MEDS: Cefpodoxime (Vantin) 100 mg Tab PO SCH (17:34)
[2018-06-24] MEDS: Home Med 1 UNIT OU SCH (17:38)
[2018-06-24] MEDS ORDERED: Alum-Mag Hydrox-Simethicone Susp (30 mL) PO PRN (17:43)
[2018-06-24] MEDS: Pantoprazole 40 mg EC Tab PO SCH (20:37)
[2018-06-24] MEDS ORDERED: PRAZOSIN 1MG CAP PO SCH (22:00)
[2018-06-25 07:03] VITALS: O2SAT 20
[2018-06-25] MEDS: Cefpodoxime (Vantin) 100 mg Tab PO SCH ×2 (07:04→17:13)
[2018-06-25] MEDS: Insulin Lispro (humaLOG) LOW Coverage SC SCH ×4 (08:14→21:12)
[2018-06-25] MEDS: Multivitamin Therapeutic Tab PO SCH (08:48)
[2018-06-25] MEDS: Ciprofloxacin/Dexamethasone OTIC SUSP AS SCH ×2 (08:53→17:15)
[2018-06-25] MEDS: Home Med 1 UNIT OU SCH ×2 (08:54→16:44)
[2018-06-25] MEDS: Fluticasone Nasal 50 mcg/Spray NS SCH (08:54)
[2018-06-25] MEDS ORDERED: CABERGOLINE 0.5 MG PO SCH (10:00)
[2018-06-25] MEDS: Acetaminophen 650mg/20.3ml solution UD PO PRN (13:53)
[2018-06-25] MEDS: LOESTRIN FE PO SCH (14:23)
--- NOTE | 2018-06-25 14:38 | CP.PCM.PN ---
<Alan Dias - Last Filed: 06/25/18 20:18> Subjective - Date & Time of Evaluation Date of Evaluation: 06/25/18 Time of Evaluation: 05:30 - Subjective Subjective: Pt seen and examined this morning. Pt has no new complaints at this time. Objective - Vital Signs/Intake and Output Vital Signs (last 24 hours): Temp Pulse Resp BP Pulse Ox 97.4 F L 84 20 108/60 20 L 06/25/18 07:02 06/25/18 07:02 06/24/18 07:16 06/25/18 07:02 06/25/18 07:02 - Medications Medications: Current Medications Acetaminophen (Tylenol 650mg/20.3ml Solution Ud) 500 mg PO TID PRN PRN Reason: Pain or fever. Last Admin: 06/25/18 13:53 Dose: 500 mg Al Hydrox/Mg Hydrox/Simethicone (Maalox Plus 30 Ml) 30 ml PO Q6H PRN PRN Reason: Indigestion / Heartburn Albuterol Sulfate (Albuterol 0.083% Inhal Irene (2.5 Mg/3 Ml) Ud) 2.5 mg INH [id number] PRN PRN Reason: Wheezing Cefpodoxime Proxetil (Vantin) 100 mg PO Q12 [facility] PRN Reason: Protocol Last Admin: 06/25/18 07:04 Dose: 100 mg Chlorpromazine (Thorazine) 300 mg PO HS [place] PRN Reason: Protocol Last Admin: 06/24/18 21:21 Dose: 300 mg Chlorpromazine (Thorazine) 100 mg PO BID [place] PRN Reason: Protocol Last Admin: 06/25/18 08:48 Dose: 100 mg Chlorpromazine (Thorazine) 25 mg PO Q6H PRN; Protocol PRN Reason: agitation/psychosis Chlorpromazine (Thorazine) 25 mg IM Q6H PRN; Protocol PRN Reason: agitation/aggression Ciprofloxacin/Dexamethasone (Ciprodex Otic) 4 drop BID [facility] Last Admin: 06/25/18 08:53 Dose: 4 drop Dextrose (Dextrose 50% Inj) 50 ml IV STAT PRN; Protocol PRN Reason: Hypoglycemia Protocol Fluoxetine HCl (Prozac) 40 mg PO DAILY [facility] Last Admin: 06/25/18 08:47 Dose: 40 mg Fluticasone Propionate (Flonase) 1 actuation NS DAILY [facility] Last Admin: 06/25/18 08:54 Dose: 1 applic Gabapentin (Neurontin) 300 mg PO TID [facility] PRN Reason: Protocol Last Admin: 06/25/18 12:25 Dose: 300 mg Home Med (Home Med) 1 unit OU BID [facility] Last Admin: 06/25/18 08:54 Dose: Not Given Home Med (Home Med) 1 unit IH DAILY PRN PRN Reason: Shortness of Breath Home Med (Home Med) 1.5 unit PO TUE [facility] Last Admin: 06/25/18 11:10 Dose: Not Given Home Med (Home Med) 1.5 unit PO FRI [facility] Home Med (Home Med) 1 unit PO DAILY [facility] Last Admin: 06/25/18 14:23 Dose: Not Given Home Med (Home Med) 1 unit PO HS [facility] Home Med (Home Med) 1 unit PO BID PRN PRN Reason: Indigestion / Heartburn Home Med (Home Med) 1 unit PO Q8H PRN PRN Reason: GI distress Hydroxyzine Pamoate (Vistaril) 50 mg PO BID PRN; Protocol PRN Reason: Anxiety Dextrose (Dextrose 5% In Water 1000 Ml) 1,000 mls @ 0 mls/hr IV .Q0M PRN; Protocol; Per Protocol PRN Reason: Hypoglycemia Protocol Insulin Human Lispro (Humalog Low) 0 units SC [facility] PRN Reason: Protocol Last Admin: 06/25/18 11:49 Dose: Not Given Mcleod Carbonate (Mcleod Carbonate 300mg) 600 mg PO BID [facility] Last Admin: 06/25/18 08:48 Dose: 600 mg Loratadine (Claritin) 10 mg PO [facility] Last Admin: 06/24/18 21:58 Dose: 10 mg Metformin HCl (Glucophage) 500 mg PO BID [facility] Multivitamins (Thera Tab) 1 tab PO 0800 [facility] Last Admin: 06/25/18 08:48 Dose: 1 tab Nicotine (Nicoderm Cq) 1 patch TD DAILY [facility] Last Admin: 06/25/18 08:48 Dose: 1 patch Ondansetron HCl (Zofran Tab) 4 mg PO Q8H PRN PRN Reason: Nausea/Vomiting Pantoprazole Sodium (Protonix Ec Tab) 40 mg PO 2000 [facility] Last Admin: 06/24/18 20:37 Dose: 40 mg Trazodone HCl (Desyrel) 100 mg PO HS [facility] Last Admin: 06/24/18 21:21 Dose: 100 mg - Labs Labs: 06/24/18 07:30 - Constitutional Appears: No Acute Distress - Head Exam Head Exam: ATRAUMATIC - Respiratory Exam Respiratory Exam: Clear to Ausculation Bilateral, NORMAL BREATHING PATTERN. absent: Accessory Muscle Use, Wheezes - Cardiovascular Exam Cardiovascular Exam: RRR, +S1, +S2 - GI/Abdominal Exam GI & Abdominal Exam: Soft, Tenderness, Normal Bowel Sounds Additional comments: mild left sided tenderness - Extremities Exam Extremities Exam: absent: Pedal Edema - Neurological Exam Neurological Exam: Alert, Awake - Skin Additional comments: scars on forearms BL Assessment and Plan - Assessment and Plan (Free Text) Assessment: Pt is a 22 yo with a PMH of bipolar disorder, multiple personality disorder, ADHD, DM, asthma, who was admitted [place] [facility] [place] for suicidal ideation. Pt states she has been having urinary symptoms with associated abdominal pain. Plan: UTI - urine cultures, no growth - start Vantin 100mg Q12 Abdominal Pain, with Diarrhea - C. diff, negative - abdominal CT: mildly enlarged mesenteric lymph nodes, suspicious for mesenteric adenitis - recommend GI follow up as out pt Asthma - continue albuterol PRN DM -decrease metformin dose to 500mg BID [facility] - continue to follow with psychiatrist Signing off, will continue to follow peripherally, please to not hesitate to contact with questions Pt seen, examined, assessment, and plan discussed with Dr Lee. Alan Dias PGY1 <Shreyas Lee - Last Filed: 06/26/18 06:40> Objective - Vital Signs/Intake and Output Vital Signs (last 24 hours): Temp Pulse Resp BP Pulse Ox 97.4 F L 81 20 106/66 20 L 06/25/18 07:02 06/25/18 16:31 06/25/18 16:31 06/25/18 16:31 06/25/18 07:02 - Medications Medications: Current Medications Acetaminophen (Tylenol 650mg/20.3ml Solution Ud) 500 mg PO TID PRN PRN Reason: Pain or fever. Last Admin: 06/25/18 13:53 Dose: 500 mg Al Hydrox/Mg Hydrox/Simethicone (Maalox Plus 30 Ml) 30 ml PO Q6H PRN PRN Reason: Indigestion / Heartburn Albuterol Sulfate (Albuterol 0.083% Inhal Irene (2.5 Mg/3 Ml) Ud) 2.5 mg INH [id number] PRN PRN Reason: Wheezing Cefpodoxime Proxetil (Vantin) 100 mg PO Q12 [facility] PRN Reason: Protocol Last Admin: 06/26/18 06:27 Dose: 100 mg Chlorpromazine (Thorazine) 300 mg PO HS [facility] PRN Reason: Protocol Last Admin: 06/25/18 21:00 Dose: 300 mg Chlorpromazine (Thorazine) 100 mg PO BID [facility] PRN Reason: Protocol Last Admin: 06/25/18 17:14 Dose: 100 mg Chlorpromazine (Thorazine) 25 mg PO Q6H PRN; Protocol PRN Reason: agitation/psychosis Chlorpromazine (Thorazine) 25 mg IM Q6H PRN; Protocol PRN Reason: agitation/aggression Ciprofloxacin/Dexamethasone (Ciprodex Otic) 4 drop BID [facility] Last Admin: 06/25/18 17:15 Dose: 4 drop Dextrose (Dextrose 50% Inj) 50 ml IV STAT PRN; Protocol PRN Reason: Hypoglycemia Protocol Fluoxetine HCl (Prozac) 40 mg PO DAILY [facility] Last Admin: 06/25/18 08:47 Dose: 40 mg Fluticasone Propionate (Flonase) 1 actuation NS DAILY [facility] Last Admin: 06/25/18 08:54 Dose: 1 applic Gabapentin (Neurontin) 300 mg PO TID [facility] PRN Reason: Protocol Last Admin: 06/25/18 17:14 Dose: 300 mg Home Med (Home Med) 1.5 unit PO TUE [facility] Last Admin: 06/25/18 11:10 Dose: Not Given Home Med (Home Med) 1.5 unit PO FRI [facility] Home Med (Home Med) 1 unit PO DAILY [facility] Last Admin: 06/25/18 14:23 Dose: Not Given Home Med (Home Med) 1 unit PO BID PRN PRN Reason: Indigestion / Heartburn Home Med (Home Med) 1 unit PO Q8H PRN PRN Reason: GI distress Home Med (Home Med) 1 unit OU BID [facility] Home Med (Home Med) 1 unit PO HS [facility] Last Admin: 06/25/18 21:00 Dose: 1 unit Hydroxyzine Pamoate (Vistaril) 50 mg PO BID PRN; Protocol PRN Reason: Anxiety Dextrose (Dextrose 5% In Water 1000 Ml) 1,000 mls @ 0 mls/hr IV .Q0M PRN; Protocol; Per Protocol PRN Reason: Hypoglycemia Protocol Insulin Human Lispro (Humalog Low) 0 units SC ACHS [facility] PRN Reason: Protocol Last Admin: 06/25/18 21:12 Dose: Not Given Mcleod Carbonate (Mcleod Carbonate 300mg) 600 mg PO BID [facility] Last Admin: 06/25/18 17:14 Dose: 600 mg Loratadine (Claritin) 10 mg PO HS [facility] Last Admin: 06/25/18 21:00 Dose: 10 mg Metformin HCl (Glucophage) 500 mg PO BID [facility] Last Admin: 06/25/18 17:14 Dose: 500 mg Multivitamins (Thera Tab) 1 tab PO 0800 [facility] Last Admin: 06/25/18 08:48 Dose: 1 tab Nicotine (Nicoderm Cq) 1 patch TD DAILY [facility] Last Admin: 06/25/18 08:48 Dose: 1 patch Ondansetron HCl (Zofran Tab) 4 mg PO Q8H PRN PRN Reason: Nausea/Vomiting Pantoprazole Sodium (Protonix Ec Tab) 40 mg PO 2000 [facility] Last Admin: 06/25/18 20:06 Dose: 40 mg Trazodone HCl (Desyrel) 100 mg PO [facility] Last Admin: 06/25/18 21:00 Dose: 100 mg - Labs Labs: 06/24/18 07:30 Attending/Attestation - Attestation I have personally seen and examined this patient.: Yes I have fully participated in the care of the patient.: Yes I have reviewed all pertinent clinical information, including history, physical exam and plan: Yes Notes (Text): 06/25/18 22 year old female with past medical history of bipolar, depression, diabetes, asthma and hypertension who presented with complaint of suicidal ideation. She also complained of dysuria, diarrhea and left sided abdominal pain. She is on po vantin for UTI. UCx was contaminant. Continue with antibiotics for 5-[address] abd/pelvis showed mildly enlarged mesenteric lymph nodes, suspicious for mesenteric adenitis. Continue with supportive treatment. Recommended close outpatient GI follow up. Stool for CDif was negative. Continue with metformin for diabetes. Shreyas Lee MD Hospitalist.
--- NOTE | 2018-06-25 15:46 | PCM.PYCHPN ---
Psychiatric Progress Note - Psychiatric Progress Note Patient seen today, length of contact: 30 minutes Patient Chief Complaint: "I feels so-so" Problems Identified/Issues Discussed: Suicide/ homicide prevention, past psychiatric h/o, current psychiatric symptoms , medical problems, risk/benefits and alternatives of medications, medications compliance, coping strategies, substance abuse h/o, relapse prevention, importance of follow up with psychiatrist and therapist, discharge plan. Medical Problems: pt has multiple medical issues, was seen by medical team. pt c/o frequent urination Diagnostic Results: 06/24/18 07:30 06/23/18 14:54 Lab Results 06/24/18 21:22: POC Glucose (mg/dL) 145 H 06/24/18 16:13: POC Glucose (mg/dL) 121 H 06/24/18 11:11: POC Glucose (mg/dL) 147 H 06/24/18 07:30: WBC 12.1 H D, RBC 4.42, Hgb 11.1 L, Hct 35.3 L, MCV 79.9 L, MCH 25.1, MCHC 31.4, RDW 15.2 H, Plt Count 447, MPV 9.4 06/24/18 07:30: [place] 0.6 06/24/18 07:30: RPR Nonreactive 06/24/18 07:30: TSH 3rd Generation 3.12 06/24/18 07:30: Fasting Glucose 129 H, Triglycerides 164 H, Cholesterol 139, LDL Cholesterol Direct 82, HDL Cholesterol 36 06/24/18 07:26: Hemoglobin A1c 6.6 H 06/24/18 07:24: POC Glucose (mg/dL) 124 H 06/23/18 20:04: POC Glucose (mg/dL) 212 H 06/23/18 14:54: Alcohol, Quantitative < 10 06/23/18 14:54: Salicylates < 1 L, Acetaminophen < 10.0 L 06/23/18 14:54: Urine Opiates Screen Negative, Urine Methadone Screen Negative, Ur Barbiturates Screen Negative, Ur Phencyclidine Scrn Negative, Ur Amphetamines Screen Negative, U Benzodiazepines Scrn Negative, U Oth Cocaine Metabols Negative, U Cannabinoids Screen Negative 06/23/18 14:54: Sodium 137, Potassium 3.6, Chloride 104, Carbon Dioxide 20 L, Anion Gap 17, BUN 9, Creatinine 0.5 L, Est GFR ( Amer) > 60, Est GFR (Non -Af Amer) > 60, Random Glucose 158 H, Calcium 9.5, Total Bilirubin 0.1 L, AST 27 , ALT 32, Alkaline Phosphatase 61, Total Protein 7.5, Albumin 4.4, Globulin 3.1 , Albumin/Globulin Ratio 1.4 06/23/18 14:54: Urine Color Yellow, Urine Appearance Clear, Urine pH 6.5, Ur Specific [place] 1.010, Urine Protein Negative, Urine Glucose (UA) Negative, Urine Ketones Negative, Urine Blood Negative, Urine Nitrate Negative, Urine Bilirubin Negative, Urine Urobilinogen 0.2, Ur Leukocyte Esterase Trace H, Urine RBC 0 - 2, Urine WBC 2 - 5, Ur Epithelial Cells 4 - 5, Urine Bacteria Many , Urine Other Uyeast 06/23/18 14:54: WBC 16.2 H, RBC 4.44, Hgb 11.0 L, Hct 35.2 L, MCV 79.3 L, MCH 24.8 L, MCHC 31.3, RDW 15.0 H, Plt Count 458 H, MPV 9.6, Gran % 76.6 H, Lymph % (Auto) 16.3 L, Hart % (Auto) 5.1, Eos % (Auto) 1.8, Baso % (Auto) 0.2, Gran # 12.41 H, Lymph # (Auto) 2.6, Hart # (Auto) 0.8 H, Eos # (Auto) 0.3, Baso # (Auto ) 0.03 Vital Signs Temp Pulse Resp BP Pulse Ox 06/25/18 07:02 97.4 F L 84 108/60 20 L 06/24/18 16:00 95 H 124/80 06/24/18 07:16 97.5 F L 86 20 109/66 06/23/18 23:52 18 06/23/18 18:52 98.7 F 101 H 17 135/92 H 06/23/18 18:14 98 F 85 19 123/85 99 06/23/18 14:37 98.5 F 75 19 122/75 99 DSM 5 Symptoms Update: Ilya Felder is a 22 yo female with developmental disability , borderline personality disorder, hx of noncompliance, h/o oppositional difiant , and ?schizoaffective disorder and multiple prior psych hospitalizations, this newspaper writer very familiar with this pt from the last admission which took place here in [facility] 05/03/18 and 05/24/18, pt was d/c from [place] 06/14/18 , was d/c from the [facility] less than a week ago, pt also came to [facility] 06/19/18, was d/c back then, now pt came to the hospital looking for admission for her depressive symptoms because pt got to know that her mother was hospitalized into the psychiatric inpatient unit s/p overdose on medications, as per pt "I was very depressed because of that, I had suicidal thoughts but I didn't act on them, that is why I came to the hospital". pt was seen and examined At the treatment team meeting room, patient presented with good personal hygiene, good ADLs, appear to be depressed, no affective reactivity, patient reported to feel sleepy, patient reports that she has no thoughts of killing herself or others and main reason why she came to the hospital was because she was feeling stressed out about overdose of her mother. Patient complained that she is hearing voices and seeing things but does not present to be psychotic, does not present to be internally preoccupied or responding to internal stimuli. so far patient is in good behavioral control, compliant with the medication, try to attend groups. Patient tolerates medications well, no side effects observed or reported, aims 0 , no EPS. 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 Mental Status Examination - Cognitive Function Orientation: Person Memory: Intact Attention: Poor Concentration: Poor Association: WNL Fund of Knowledge: WNL - Mood Mood: Depressed ("i feel depressed") - Affect Affect: Flat - Formal Thought Process Formal Thought Process: No Impairment, Other (pt claims that she hears voices, but does not appear to be psychotic) - Suicidal Ideation Suicidal Ideation: No - Homicidal Ideation Homicidal Ideation: No Goal/Treatment Plan - Goal/Treatment Plan Need for Continued Stay: Remain at risks for inpatient hospitalization, Severe depression anxiety, Discharge may exacerbated symptoms, Severe functional impairment Progress Toward Problem(s) and Goals/Treatment Plan: Milieu/structure/supportive therapy Medical consult will be called for leukocytosis, pt also c/o painful urination SW consultation for discharge plan and social issues Med management all meds confirmed Thorazine 100 mg at the morning time and afternoon and 300 mg at the nighttime for psychosis [place] will be continued 600 mg twice a day for mood stabilization lithium level 06/24/2018 00.6 Trazodone will be continued 100 mg at the nighttime prazosin 1 mg at the nighttime for nightmares Prozac will be continued 40 mg daily for depression and anxiety and borderline personality Metformin 1000 mg twice a day Family involvement Follow up on labs Will monitor closely Pt was educated about risk/benefits and alternatives of medications, coping strategies (safety plan, suicide prevention), relapse prevention, importance of follow up with psychiatrist and therapist, stay away from drugs/alcohol/smoking Estimated Date of D/C: 06/28/18
[2018-06-25] MEDS: Pantoprazole 40 mg EC Tab PO SCH (20:06)
[2018-06-25] MEDS: PRAZOSIN 1MG CAP PO SCH (21:00)
[2018-06-26] MEDS: Cefpodoxime (Vantin) 100 mg Tab PO SCH ×2 (06:27→17:05)
[2018-06-26] MEDS: Fluticasone Nasal 50 mcg/Spray NS SCH (08:46)
[2018-06-26] MEDS: AZELASTINE 0.05% OU SCH ×2 (08:47→16:29)
[2018-06-26] MEDS: EYE OU SCH ×2 (08:47→16:29)
[2018-06-26] MEDS: Multivitamin Therapeutic Tab PO SCH (09:22)
[2018-06-26] MEDS: Insulin Lispro (humaLOG) LOW Coverage SC SCH ×4 (09:24→23:24)
[2018-06-26] MEDS: LOESTRIN FE PO SCH (09:26)
[2018-06-26] MEDS: Ciprofloxacin/Dexamethasone OTIC SUSP AS SCH ×2 (11:47→16:23)
--- NOTE | 2018-06-26 13:25 | PCM.PYCHPN ---
Psychiatric Progress Note - Psychiatric Progress Note Patient seen today, length of contact: 30 minutes Patient Chief Complaint: "I feel okay, I am not suicidal or something, but my stomach hurts..." Problems Identified/Issues Discussed: Suicide/ homicide prevention, past psychiatric h/o, current psychiatric symptoms , medical problems, risk/benefits and alternatives of medications, medications compliance, coping strategies, substance abuse h/o, relapse prevention, importance of follow up with psychiatrist and therapist, discharge plan. Medical Problems: pt has multiple medical issues, was seen by medical team. pt c/o frequent urination discussed with 06/26/18, no need colonoscopy, pt may follow up with her GI doctor, recommended PO abx Diagnostic Results: 06/24/18 07:30 06/23/18 14:54 Lab Results 06/24/18 21:22: POC Glucose (mg/dL) 145 H 06/24/18 16:13: POC Glucose (mg/dL) 121 H 06/24/18 11:11: POC Glucose (mg/dL) 147 H 06/24/18 07:30: WBC 12.1 H D, RBC 4.42, Hgb 11.1 L, Hct 35.3 L, MCV 79.9 L, MCH 25.1, MCHC 31.4, RDW 15.2 H, Plt Count 447, MPV 9.4 06/24/18 07:30: [place] 0.6 06/24/18 07:30: RPR Nonreactive 06/24/18 07:30: TSH 3rd Generation 3.12 06/24/18 07:30: Fasting Glucose 129 H, Triglycerides 164 H, Cholesterol 139, LDL Cholesterol Direct 82, HDL Cholesterol 36 06/24/18 07:26: Hemoglobin A1c 6.6 H 06/24/18 07:24: POC Glucose (mg/dL) 124 H 06/23/18 20:04: POC Glucose (mg/dL) 212 H 06/23/18 14:54: Alcohol, Quantitative < 10 06/23/18 14:54: Salicylates < 1 L, Acetaminophen < 10.0 L 06/23/18 14:54: Urine Opiates Screen Negative, Urine Methadone Screen Negative, Ur Barbiturates Screen Negative, Ur Phencyclidine Scrn Negative, Ur Amphetamines Screen Negative, U Benzodiazepines Scrn Negative, U Oth Cocaine Metabols Negative, U Cannabinoids Screen Negative 06/23/18 14:54: Sodium 137, Potassium 3.6, Chloride 104, Carbon Dioxide 20 L, Anion Gap 17, BUN 9, Creatinine 0.5 L, Est GFR ( Amer) > 60, Est GFR (Non -Af Amer) > 60, Random Glucose 158 H, Calcium 9.5, Total Bilirubin 0.1 L, AST 27 , ALT 32, Alkaline Phosphatase 61, Total Protein 7.5, Albumin 4.4, Globulin 3.1 , Albumin/Globulin Ratio 1.4 06/23/18 14:54: Urine Color Yellow, Urine Appearance Clear, Urine pH 6.5, Ur Specific [place] 1.010, Urine Protein Negative, Urine Glucose (UA) Negative, Urine Ketones Negative, Urine Blood Negative, Urine Nitrate Negative, Urine Bilirubin Negative, Urine Urobilinogen 0.2, Ur Leukocyte Esterase Trace H, Urine RBC 0 - 2, Urine WBC 2 - 5, Ur Epithelial Cells 4 - 5, Urine Bacteria Many , Urine Other Uyeast 06/23/18 14:54: WBC 16.2 H, RBC 4.44, Hgb 11.0 L, Hct 35.2 L, MCV 79.3 L, MCH 24.8 L, MCHC 31.3, RDW 15.0 H, Plt Count 458 H, MPV 9.6, Gran % 76.6 H, Lymph % (Auto) 16.3 L, [place] % (Auto) 5.1, Eos % (Auto) 1.8, Baso % (Auto) 0.2, Gran # 12.41 H, Lymph # (Auto) 2.6, [place] # (Auto) 0.8 H, Eos # (Auto) 0.3, Baso # (Auto ) 0.03 Vital Signs Temp Pulse Resp BP Pulse Ox 06/25/18 07:02 97.4 F L 84 108/60 20 L 06/24/18 16:00 95 H 124/80 06/24/18 07:16 97.5 F L 86 20 109/66 06/23/18 23:52 18 06/23/18 18:52 98.7 F 101 H 17 135/92 H 06/23/18 18:14 98 F 85 19 123/85 99 06/23/18 14:37 98.5 F 75 19 122/75 99 Abnormal Lab Results 06/25/18 06/25/18 06/25/18 07:21 11:27 16:24 POC Glucose (mg/dL) 118 H 139 H 149 H 06/25/18 06/26/18 06/26/18 21:05 07:29 11:43 POC Glucose (mg/dL) 131 H 135 H 163 H Temp Pulse Resp BP Pulse Ox 97.4 F L 82 20 105/66 20 L 06/26/18 07:17 06/26/18 07:17 06/26/18 07:17 06/26/18 07:17 06/25/18 07:02 CT of abdomen and pelvis 06/24/18 mild urinary bladder wall thickening Mildly enlarged mesenteric lymph nodes suspicious for mesenteric adenitis. medical team is aware. DSM 5 Symptoms Update: Ilya Felder is a 22 yo female with developmental disability , borderline personality disorder, hx of noncompliance, h/o oppositional difiant , and ?schizoaffective disorder and multiple prior psych hospitalizations, this automatic typewriter inspector very familiar with this pt from the last admission which took place here in [facility] 05/03/18 and 05/24/18, pt was d/c from [place] 06/14/18 , was d/c from the [facility] [place] [place] [facility] less than a week ago, pt also came to [facility] [place], was d/c back then, now pt came to the hospital looking for admission for her depressive symptoms because pt got to know that her mother was hospitalized into the psychiatric inpatient unit s/p overdose on medications, as per pt "I was very depressed because of that, I had suicidal thoughts but I didn't act on them, that is why I came to the hospital". pt was seen and examined in her room with medical students, pt presented to be sleepy, pt said her mood is "okay, I don't feel suicidal or something", pt reported that she came to the hospital for because she was feeling very depressed over the fact that her mother overdosed on meds, but "Now I feel better", pt asked questions about the plan from the medical team, pt was explained that her abdominal pain mostly related to the UTI for what she is taking her abx, no plan to have colonoscopy as per medical team, pt was appreciative. as per staff pt has good personal hygiene, good ADLs, no agitation/no aggression /pt is attends groups. denied any psychotic symptoms today, pt does not appear to be psychotic. so far patient is in good behavioral control, compliant with the medication, try to attend groups. Patient tolerates medications well, no side effects observed or reported, aims 0 , no EPS. Impression: DSM 5 Diagnosis: pt suffers from severe borderline personality disorder r/o impulse control disorder ?bipolar disorder ?schizoaffective disorder h/o alcohol abuse polysubstance abuse and dependence neurocognitive deficit with deficit in executive functioning Medication Change: No (pt is stable on current set of meds) Medical Record Reviewed: Yes Consults ordered or reviewed: medical consult appreciated. see notes for more detailed information Mental Status Examination - Cognitive Function Orientation: Person Memory: Intact Attention: Poor (improving) Concentration: Poor (improving) Association: WNL Fund of Knowledge: WNL - Mood Mood: Depressed ("I feel good today") - Affect Affect: Constricted (but more reactive, mood congruent) - Formal Thought Process Formal Thought Process: No Impairment, Other (pt claims that she hears voices, but does not appear to be psychotic) - Suicidal Ideation Suicidal Ideation: No - Homicidal Ideation Homicidal Ideation: No Goal/Treatment Plan - Goal/Treatment Plan Need for Continued Stay: Remain at risks for inpatient hospitalization, Severe depression anxiety, Discharge may exacerbated symptoms, Severe functional impairment Progress Toward Problem(s) and Goals/Treatment Plan: Milieu/structure/supportive therapy Medical consult will be called for leukocytosis, pt also c/o painful urination SW consultation for discharge plan and social issues Med management all meds confirmed Thorazine 100 mg at the morning time and afternoon and 300 mg at the nighttime for psychosis [place] will be continued 600 mg twice a day for mood stabilization lithium level 06/24/2018 0.6 Trazodone will be continued 100 mg at the nighttime prazosin 1 mg at the nighttime for nightmares Prozac will be continued 40 mg daily for depression and anxiety and borderline personality Metformin 1000 mg twice a day Family involvement Follow up on labs Will monitor closely Pt was educated about risk/benefits and alternatives of medications, coping strategies (safety plan, suicide prevention), relapse prevention, importance of follow up with psychiatrist and therapist, stay away from drugs/alcohol/smoking Estimated Date of D/C: 06/27/18
[2018-06-26 19:39] LABS: HEMOGLOBIN 11.3 g/dL (12.0-16.0); MEAN CELL VOLUME 79.2 fl (80.0-105.0); MEAN CORPUSCULAR HEMOGLOBIN 24.9 pg (25.0-35.0); MEAN CORPUSCULAR HGB CONC 31.5 g/dl (31.0-37.0); MEAN PLATELET VOLUME 9.4 fl (7.0-11.0); RBC 4.53 10^6/uL (3.5-6.1); RED CELL DISTRIBUTION WIDTH 14.8 % (11.5-14.5); WHITE BLOOD COUNT 16.1 10^3/ul (4.5-11.0)
[2018-06-26 19:56] LABS: BLOOD UREA NITROGEN 7 mg/dL (7-21); CALCIUM 9.7 mg/dL (8.4-10.5); GFR NON-AFRICAN AMERICAN > 60
[2018-06-26] MEDS: Pantoprazole 40 mg EC Tab PO SCH (21:41)
[2018-06-26] MEDS: PRAZOSIN 1MG CAP PO SCH (21:42)
[2018-06-26] MEDS: Acetaminophen 650mg/20.3ml solution UD PO PRN (21:42)
[2018-06-27] MEDS: Cefpodoxime (Vantin) 100 mg Tab PO SCH (06:54)
[2018-06-27 07:34] VITALS: BP 106/71; PULSE 78; TEMP 98
[2018-06-27 08:17] LABS: HEMOGLOBIN 11.4 g/dL (12.0-16.0); MEAN CELL VOLUME 79.8 fl (80.0-105.0); MEAN CORPUSCULAR HEMOGLOBIN 25.3 pg (25.0-35.0); MEAN CORPUSCULAR HGB CONC 31.8 g/dl (31.0-37.0); MEAN PLATELET VOLUME 9.3 fl (7.0-11.0); RBC 4.5 10^6/uL (3.5-6.1); RED CELL DISTRIBUTION WIDTH 14.9 % (11.5-14.5); WHITE BLOOD COUNT 13.1 10^3/ul (4.5-11.0)
[2018-06-27] MEDS: Fluticasone Nasal 50 mcg/Spray NS SCH (09:50)
[2018-06-27] MEDS: Multivitamin Therapeutic Tab PO SCH (09:51)
[2018-06-27] MEDS: Ciprofloxacin/Dexamethasone OTIC SUSP AS SCH (09:53)
[2018-06-27] MEDS: AZELASTINE 0.05% OU SCH (09:54)
[2018-06-27] MEDS: EYE OU SCH (09:54)
[2018-06-27] MEDS: Insulin Lispro (humaLOG) LOW Coverage SC SCH ×2 (09:55→13:57)
[2018-06-27] MEDS: LOESTRIN FE PO SCH (10:20)
[2018-06-28] MEDS ORDERED: CABERGOLINE 0.5 MG PO SCH (10:00)
--- NOTE | 2018-06-28 11:10 | PQF ---
PROVIDER RESPONSE TEXT: Mild, intermittent REVIEWER QUERY TEXT: Asthma Specificity and Type Asthma is documented in the Medical Record. Please specify the type and severity of asthma and indic ate if this is associated with exacerbation or status asthmaticus. Such as: -- Mild intermittent -- Mild persistent -- Moderate persistent -- Severe persistent -- Exercise induced bronchospasm -- Cough variant asthma -- Other, please specify The patient's Clinical Indicators include: Asthma is documented on consult. Please specify type and severity. Thank you. Query created by: Isadora Henry on 06/28/2018 10:56 AM Electronically signed by: Shreyas Lee MD 06/28/2018 11:07 AM
--- NOTE | 2018-06-28 12:00 | PCM.PYCHDC ---
Mental Status Examination - Mental Status Examination Orientation: Person, Place, Situation, Time Memory: Intact Mood: Neutral Affect: Constricted (but reactive and mood congruent) Speech: Appropriate Attention: Poor (much improved but poor at baseline) Concentration: Poor (much improved but poor at baseline) Association: Loose (baseline) Fund of Knowledge: Poor (baseline) Formal Thought Process: No Impairment, Other (patient claims that she hears voices but patient does not present to be psychotic, does not present to be responding to internal stimuli) Description of patient's judgement and insight: Pt has limited insight into mental and medical illness, but much improved, pt was compliant with medications and unit rules and regulations, pt was going to groups, was calm, cooperative, socially appropriate, no behavioral incidents, no agitation, no aggression. Psychotic Thoughts and Behaviors: Pt denied v/a/t hallucinations, denied paranoid ideations, pt does not appear to be psychotic, and thought process is goal directed. Suicidal Ideation: No Current Homicidal Ideation?: No Plan: pt adamantly denied thoughts of harming self or others denied intent or plan. Discharge Summary - Discharge Note Reason for Hospitalization: patient was admitted to the psychiatric inpatient unit for evaluation of possible depressive symptoms, possible suicidal ideation, observation Psychiatric History (includes Medical, Family, Personal Hx): see HPI Laboratory Data: 06/27/18 08:00 06/26/18 19:27 Lab Results 06/27/18 11:30: POC Glucose (mg/dL) 197 H 06/27/18 08:00: WBC 13.1 H, RBC 4.50, Hgb 11.4 L, Hct 35.9 L, MCV 79.8 L, MCH 25.3, MCHC 31.8, RDW 14.9 H, Plt Count 424, MPV 9.3 06/27/18 07:34: POC Glucose (mg/dL) 175 H 06/26/18 21:00: POC Glucose (mg/dL) 175 H 06/26/18 19:27: Sodium 137, Potassium 4.1, Chloride 101, Carbon Dioxide 25, Anion Gap 16, BUN 7, Creatinine 0.6 L, Est GFR ( Amer) > 60, Est GFR (Non -Af Amer) > 60, Random Glucose 155 H, Calcium 9.7 06/26/18 19:27: WBC 16.1 H D, RBC 4.53, Hgb 11.3 L, Hct 35.9 L, MCV 79.2 L, MCH 24.9 L, MCHC 31.5, RDW 14.8 H, Plt Count 444, MPV 9.4 06/26/18 16:14: POC Glucose (mg/dL) 208 H 06/26/18 11:43: POC Glucose (mg/dL) 163 H 06/26/18 07:29: POC Glucose (mg/dL) 135 H 06/25/18 21:05: POC Glucose (mg/dL) 131 H 06/25/18 16:24: POC Glucose (mg/dL) 149 H 06/25/18 11:27: POC Glucose (mg/dL) 139 H 06/25/18 07:21: POC Glucose (mg/dL) 118 H 06/24/18 21:22: POC Glucose (mg/dL) 145 H 06/24/18 16:13: POC Glucose (mg/dL) 121 H 06/24/18 11:11: POC Glucose (mg/dL) 147 H 06/24/18 07:30: WBC 12.1 H D, RBC 4.42, Hgb 11.1 L, Hct 35.3 L, MCV 79.9 L, MCH 25.1, MCHC 31.4, RDW 15.2 H, Plt Count 447, MPV 9.4 06/24/18 07:30: [place] 0.6 06/24/18 07:30: RPR Nonreactive 06/24/18 07:30: TSH 3rd Generation 3.12 06/24/18 07:30: Fasting Glucose 129 H, Triglycerides 164 H, Cholesterol 139, LDL Cholesterol Direct 82, HDL Cholesterol 36 06/24/18 07:26: Hemoglobin A1c 6.6 H 06/24/18 07:24: POC Glucose (mg/dL) 124 H 06/23/18 20:04: POC Glucose (mg/dL) 212 H 06/23/18 14:54: Alcohol, Quantitative < 10 06/23/18 14:54: Salicylates < 1 L, Acetaminophen < 10.0 L 06/23/18 14:54: Urine Opiates Screen Negative, Urine Methadone Screen Negative, Ur Barbiturates Screen Negative, Ur Phencyclidine Scrn Negative, Ur Amphetamines Screen Negative, U Benzodiazepines Scrn Negative, U Oth Cocaine Metabols Negative, U Cannabinoids Screen Negative 06/23/18 14:54: Sodium 137, Potassium 3.6, Chloride 104, Carbon Dioxide 20 L, Anion Gap 17, BUN 9, Creatinine 0.5 L, Est GFR ( Amer) > 60, Est GFR (Non -Af Amer) > 60, Random Glucose 158 H, Calcium 9.5, Total Bilirubin 0.1 L, AST 27 , ALT 32, Alkaline Phosphatase 61, Total Protein 7.5, Albumin 4.4, Globulin 3.1 , Albumin/Globulin Ratio 1.4 06/23/18 14:54: Urine Color Yellow, Urine Appearance Clear, Urine pH 6.5, Ur Specific [place] 1.010, Urine Protein Negative, Urine Glucose (UA) Negative, Urine Ketones Negative, Urine Blood Negative, Urine Nitrate Negative, Urine Bilirubin Negative, Urine Urobilinogen 0.2, Ur Leukocyte Esterase Trace H, Urine RBC 0 - 2, Urine WBC 2 - 5, Ur Epithelial Cells 4 - 5, Urine Bacteria Many , Urine Other Uyeast 06/23/18 14:54: WBC 16.2 H, RBC 4.44, Hgb 11.0 L, Hct 35.2 L, MCV 79.3 L, MCH 24.8 L, MCHC 31.3, RDW 15.0 H, Plt Count 458 H, MPV 9.6, Gran % 76.6 H, Lymph % (Auto) 16.3 L, [place] % (Auto) 5.1, Eos % (Auto) 1.8, Baso % (Auto) 0.2, Gran # 12.41 H, Lymph # (Auto) 2.6, [place] # (Auto) 0.8 H, Eos # (Auto) 0.3, Baso # (Auto ) 0.03 Vital Signs Temp Pulse Resp BP Pulse Ox 06/27/18 07:33 98.0 F 78 20 106/71 06/26/18 16:30 79 143/83 06/26/18 07:17 97.4 F L 82 20 105/66 06/25/18 16:31 81 20 106/66 06/25/18 07:02 97.4 F L 84 108/60 20 L 06/24/18 16:00 95 H 124/80 06/24/18 07:16 97.5 F L 86 20 109/66 06/23/18 23:52 18 06/23/18 18:52 98.7 F 101 H 17 135/92 H 06/23/18 18:14 98 F 85 19 123/85 99 06/23/18 14:37 98.5 F 75 19 122/75 99 Consultations:: List each consultation separately and include: 1. Reason for request. 2. Findings. 3. Follow-up Consultations: medical consult appreciated, pt was on antibiotics for her UTI see notes for more detailed information UTI - urine cultures, no growth - start Vantin 100mg Q12 - C. diff, negative - abdominal CT: mildly enlarged mesenteric lymph nodes, suspicious for mesenteric adenitis - recommend GI follow up as out pt - continue albuterol PRN -decrease metformin dose to 500mg BID pt was provided with abx script Summary of Hospital Course include:: 1. Description of specific treatment plan utilized for patients during their course of treatmen. 2. Summarize the time- course for resolution of acute symptoms and/or regressed behaviors. 3. Describe issues identified and worked on during hospitalization. 4. Describe medication utilized. 5. Describe medical problems identified and treated. 6. Reassessment of suicide risk Summary of Hospital Course: shortly: Ilya Felder is a 22 yo female with developmental disability, borderline personality disorder, hx of noncompliance, h/o oppositional difiant, and ?schizoaffective disorder and multiple prior psych hospitalizations, this fiction and nonfiction prose writer very familiar with this pt from the last admission which took place here in [facility] 05/03/18 and 05/24/18, pt was d/c from [place] 06/14/18, was d/c from the [facility] [place] [facility] less than a week ago , pt also came to [facility] [place]18, was d/c back then, now pt came to the hospital looking for admission for her depressive symptoms because pt got to know that her mother was hospitalized into the psychiatric inpatient unit s/p overdose on medications, as per pt "I was very depressed because of that, I had suicidal thoughts but I didn't act on them, that is why I came to the hospital". initially pt was seen and examined At the treatment team meeting, patient presented with good personal hygiene, good ADLs, has manicure, discussed with staff, med list requested and meds resumed, list of meds filed in chart. patient said she got to know that her mother overdosed on medications, patient reported "triggered me", patient reported that she was feeling very depressed and suicidal "but I did not act on my thoughts which is good" prior to this hospitalization pt was compliant with meds and f/u appt. 06/24/18 07:30 06/23/18 14:54 Lab Results 06/24/18 11:11: POC Glucose (mg/dL) 147 H 06/24/18 07:30: WBC 12.1 H D, RBC 4.42, Hgb 11.1 L, Hct 35.3 L, MCV 79.9 L, MCH 25.1, MCHC 31.4, RDW 15.2 H, Plt Count 447, MPV 9.4 06/24/18 07:30: [place] 0.6 06/24/18 07:30: TSH 3rd Generation 3.12 06/24/18 07:30: Fasting Glucose 129 H, Triglycerides 164 H, Cholesterol 139, LDL Cholesterol Direct 82, HDL Cholesterol 36 06/24/18 07:24: POC Glucose (mg/dL) 124 H 06/23/18 20:04: POC Glucose (mg/dL) 212 H 06/23/18 14:54: Alcohol, Quantitative < 10 06/23/18 14:54: Salicylates < 1 L, Acetaminophen < 10.0 L 06/23/18 14:54: Urine Opiates Screen Negative, Urine Methadone Screen Negative, Ur Barbiturates Screen Negative, Ur Phencyclidine Scrn Negative, Ur Amphetamines Screen Negative, U Benzodiazepines Scrn Negative, U Oth Cocaine Metabols Negative, U Cannabinoids Screen Negative 06/23/18 14:54: Sodium 137, Potassium 3.6, Chloride 104, Carbon Dioxide 20 L, Anion Gap 17, BUN 9, Creatinine 0.5 L, Est GFR ( Amer) > 60, Est GFR (Non -Af Amer) > 60, Random Glucose 158 H, Calcium 9.5, Total Bilirubin 0.1 L, AST 27 , ALT 32, Alkaline Phosphatase 61, Total Protein 7.5, Albumin 4.4, Globulin 3.1 , Albumin/Globulin Ratio 1.4 06/23/18 14:54: Urine Color Yellow, Urine Appearance Clear, Urine pH 6.5, Ur Specific [place] 1.010, Urine Protein Negative, Urine Glucose (UA) Negative, Urine Ketones Negative, Urine Blood Negative, Urine Nitrate Negative, Urine Bilirubin Negative, Urine Urobilinogen 0.2, Ur Leukocyte Esterase Trace H, Urine RBC 0 - 2, Urine WBC 2 - 5, Ur Epithelial Cells 4 - 5, Urine Bacteria Many , Urine Other Uyeast 06/23/18 14:54: WBC 16.2 H, RBC 4.44, Hgb 11.0 L, Hct 35.2 L, MCV 79.3 L, MCH 24.8 L, MCHC 31.3, RDW 15.0 H, Plt Count 458 H, MPV 9.6, Gran % 76.6 H, Lymph % (Auto) 16.3 L, [place] % (Auto) 5.1, Eos % (Auto) 1.8, Baso % (Auto) 0.2, Gran # 12.41 H, Lymph # (Auto) 2.6, [place] # (Auto) 0.8 H, Eos # (Auto) 0.3, Baso # (Auto ) 0.03 Vital Signs Temp Pulse Resp BP Pulse Ox 06/24/18 07:16 97.5 F L 86 20 109/66 06/23/18 23:52 18 06/23/18 18:52 98.7 F 101 H 17 135/92 H 06/23/18 18:14 98 F 85 19 123/85 99 06/23/18 14:37 98.5 F 75 19 122/75 99 over the course of this hospitalization pt was continued on all of her medications the only medication was change is Thorazine which dose was redistributed instead of 200mg po am and 300mg hs, was given as 100mg po bid and 300mg po hs. the reason why it was changed pt c/o "sedation" after the change pt was less sedated, more active. the rest of meds were continued, please see HPI for more detailed info. pt tolerated medications well, no side effects observed or reported, AIMS 0, no EPS. pt was dx with UTI was started on abx please see medical team notes for more detailed information. discussed with on 06/26/18, pt was cleared from the medical standpoint for d/c 06/27/18 Over the course of this hospitalization pt was attending groups, pt also had medication management, had therapeutic milieu. Overall pt improved, pt's affect became brighter, pt was less depressed, has realistic future oriented plans "to go back and try my best to do well", pt also does not appear to be psychotic, or anxious, pt was socially appropriate, no behavioral issues, pts insight improved, soon pt deemed to be ready for discharge. At the time of the discharge pt denied been depressed but "little upset", denied thoughts of harming self or others, denied psychotic symptoms, and pt does not appeared to be psychotic, denied been anxious, pt is not in imminent danger to self or others, pt will be f/u with psychiatrist at [facility], information about follow up appointment, time and address provided to the pt, it is [facility] and pt's responsibility to make sure pt will be f/u with outpatient clinic , PMD as well as specialists (GI, Laboratory Chemist and all necessary specialists). In case pt will need to obtain results of studies pending at discharge pt was provided with contact information of Psychiatric Inpatient unit [phone] as well as Medical Record Department [phone]. Counseling about smoking and alcohol cessation provided AA meetings as well as smoking cessation treatment program information was provided by the pt was provided with only prescription for Thorazine (see above) for psychosis the rest of meds pt has available at the [facility]. Pt was educated about safety plan in case of worsening of symptoms or in case of suicidal or homicidal ideation call 911 or go to the nearest ER, also was educated to take meds as prescribed and stay away from drugs, pt verbalized understanding. - Diagnosis (1) Depression Status: Chronic Priority: Low (2) Neurocognitive disorder Status: Chronic Priority: High (3) PTSD (post-traumatic stress disorder) Status: Chronic Priority: Medium - Final Diagnosis (DSM 5) Condition upon Discharge: IMPROVED Disposition: HOME/ ROUTINE Follow-up Treatment Plan: At the time of the discharge pt denied been depressed but "little upset", denied thoughts of harming self or others, denied psychotic symptoms, and pt does not appeared to be psychotic, denied been anxious, pt is not in imminent danger to self or others, pt will be f/u with psychiatrist at [facility], information about follow up appointment, time and address provided to the pt, it is [facility] and pt's responsibility to make sure pt will be f/u with outpatient clinic , PMD as well as specialists (GI, Laboratory Chemist and all necessary specialists). In case pt will need to obtain results of studies pending at discharge pt was provided with contact information of Psychiatric Inpatient unit [phone] as well as Medical Record Department [phone]. Counseling about smoking and alcohol cessation provided AA meetings as well as smoking cessation treatment program information was provided by the pt was provided with only prescription for Thorazine (see above) for psychosis the rest of meds pt has available at the [facility]. Pt was educated about safety plan in case of worsening of symptoms or in case of suicidal or homicidal ideation call 911 or go to the nearest ER, also was educated to take meds as prescribed and stay away from drugs, pt verbalized understanding. Prescriptions/Medication Reconciliation: Cefpodoxime [Vantin] 100 mg PO Q12 #6 tab chlorproMAZINE [Thorazine] 200 mg PO DAILY 14 Days #14 tab Winston Carbonate [Winston Carbonate 300MG] 600 mg PO BID 14 Days #28 cap metFORMIN [glucOPHAGE] 500 mg PO BID #28 tab metFORMIN [glucOPHAGE] 1,000 mg PO BID 14 Days #28 tab Prazosin HCl [Minipress] 2 mg PO HS 14 Days #14 cap traZODone [Desyrel] 100 mg PO HS 14 Days #14 tab - Smoking Cessation Smoking Cessation Medication prescribed: Yes - Antipsychotic Medications Pt discharged on 2 or more routine antipsychotic medications: No
--- NOTE | 2018-06-28 23:17 | PN ---
DATE: 06/28/[address] Gallo. SUBJECTIVE: This dictation is performed on June 28 with the patient having been seen on June 27, but a delay due to mechanical difficulties. The patient was interviewed in treatment team. She had been admitted for evaluation of a possible depressive disorder with suicidal observation. Her mood and affect had improved significantly while on the psychiatric unit, such as she was not homicidal, suicidal or psychotic at time of discharge. She carries with a diagnosis of developmental delay, borderline personality disorder, history of noncompliance including oppositional defiant behavior and a possible schizoaffective disorder. She had multiple psychiatric hospitalizations in the past with most recently this past April and May with a more recent [facility] admission on June 14 and a [facility] emergency room visit approximately 1 week prior to present admission. The patient is being maintained psychotropically on trazodone 100 mg at bedtime, lithium 600 mg b.i.d., Neurontin 300 mg t.i.d., Prozac 40 mg daily. She wishes to be discharge back to the [facility] where [facility] and to follow up with [facility] partial program. Edson Jarrell MD/ PhD
== END 2018-06-27 17:18 | disposition home or self-care (01) | DRG 430 ==
LOC: ED 14:14 → ERH 18:07 → PSYC 18:48
PROVIDERS: ADMIT Psychiatry & Neurology Psychiatry; ATTEND Psychiatry & Neurology Psychiatry
DX: F25.9 Schizoaffective disorder, unspecified (principal); N39.0 Urinary tract infection, site not specified; F19.20 Other psychoactive substance dependence, uncomplicated; F31.9 Bipolar disorder, unspecified; F60.3 Borderline personality disorder; E03.9 Hypothyroidism, unspecified; E11.9 Type 2 diabetes mellitus without complications; F43.10 Post-traumatic stress disorder, unspecified; F90.9 Attention-deficit hyperactivity disorder, unspecified type; I10 Essential (primary) hypertension; K21.9 Gastro-esophageal reflux disease without esophagitis; J45.20 Mild intermittent asthma, uncomplicated; R45.851 Suicidal ideations; Z79.84 Long term (current) use of oral hypoglycemic drugs; F17.210 Nicotine dependence, cigarettes, uncomplicated; Z91.19 Patient's noncompliance with other medical treatment and regimen; Z88.8 Allergy status to other drugs, medicaments and biological substances; Z91.013 Allergy to seafood; Z87.892 Personal history of anaphylaxis; F63.9 Impulse disorder, unspecified; F19.10 Other psychoactive substance abuse, uncomplicated